=== PATIENT | male | born 1965 | race Caucasian/White ===

== ENCOUNTER → 2019-12-03 10:38 | Outpatient (CLI) | payer BC, SELFPAY ==
[2019-12-04 18:48] LABS: Alanine Aminotransferase 46 U/L (12-78); Albumin Level 3.8 gm/dL (3.4-5.0); Albumin/Globulin Ratio 1.2 (1.1-1.8); Alkaline Phosphatase 66 U/L (46-116); Anion Gap 13.6 mEq/L (5-15); Aspartate Amino Transferase 25 U/L (15-37); Bilirubin,Total 0.3 mg/dL (0.2-1.0); Blood Urea Nitrogen 16 mg/dL (7-18); Calcium 9.3 mg/dL (8.5-10.1); Carbon Dioxide 31 mmol/L (21.0-32.0); Chloride 101 mmol/L (98-107); Chol/HDL Ratio 6.3 (1-3.5); Cholesterol 253 mg/dL (140-200); Creatinine,Serum 0.97 mg/dL (0.70-1.30); Estimated Glomerular Filt Rate 81 ml/min (>60); GFR (African American) 98 ML/MIN (>60); Globulin 3.2 gm/dl (1.3-3.2); Glucose 152 mg/dL (74-106); HDL Cholesterol 40 mg/dL (27-67); LDL Cholesterol 171 mg/dL (0-130); Potassium 4.6 mmoL/L (3.5-5.1); Sodium 141 mmol/L (136-145); T4 (Thyroxine) 10.1 ug/dl (4.7-13.3); Thyroid Stimulating Hormone 1.88 uIU/ml (0.358-3.740); Triglycerides 212 mg/dL (30-200); VLDL Cholesterol 42 mg/dL (0-40)
[2019-12-05 15:10] LABS: Hemoglobin A1C 7.3 % (0.0-7.0)
[2019-12-06 11:27] LABS: Vitamin D 25 Hydroxy 12.5 ng/mL (30.0-100.0)
== END ==
LOC: LAB 12-04 17:31 → LAB.DROPOF 12-04 17:35
PROVIDERS: Visit Provider Physician Assistant
DX: I10 Essential (primary) hypertension (principal); R73.9 Hyperglycemia, unspecified; E55.9 Vitamin D deficiency, unspecified
CPT/HCPCS: 80053; 80061; 82652; 83036; 84436; 84443

== ENCOUNTER → 2019-12-18 14:42 | Outpatient (CLI) | payer BC, SELFPAY ==
[2019-12-18 16:09] VITALS: BMI 44.5
== END ==
PROVIDERS: PCP Physician Assistant; Visit Provider Physician Assistant
DX: Z71.3 Dietary counseling and surveillance (principal); E11.9 Type 2 diabetes mellitus without complications
CPT/HCPCS: 97802

== ENCOUNTER → 2020-06-03 13:33 | Outpatient (CLI) | payer BC, SELFPAY ==
[2020-06-03 14:02] LABS: Alanine Aminotransferase 24 U/L (12-78); Albumin Level 4.5 g/dl (3.5-5.0); Albumin/Globulin Ratio 1.6 (1.1-1.8); Alkaline Phosphatase 73 U/L (38-126); Anion Gap 15.7 mEq/L (5-15); Aspartate Amino Transferase 31 U/L (17-59); Bilirubin,Total 0.6 mg/dl (0.2-1.3); Blood Urea Nitrogen 15 mg/dl (9-20); Calcium 10.2 mg/dl (8.4-10.2); Carbon Dioxide 28 mmol/L (22.0-30.0); Chloride 100 mmol/L (98-107); Chol/HDL Ratio 3.3 (1-3.5); Cholesterol 190 mg/dl (140-200); Estimated Glomerular Filt Rate 118 ml/min (>60); GFR (African American) 143 ML/MIN (>60); Globulin 2.9 g/dL (1.3-3.2); Glucose 114 mg/dl (74-100); HDL Cholesterol 58 mg/dl (40-60); Potassium 4.7 mmoL/L (3.5-5.1); Sodium 139 mmol/L (136-145); Total Protein,Serum 7.4 g/dl (6.3-8.2); Triglycerides 119 mg/dl (30-150); VLDL Cholesterol 24 mg/dL (0-40)
[2020-06-03 14:13] LABS: Creatinine,Urine Random 29 mg/dL (Not Estab.); Direct LDL Cholesterol 113.75 mg/dL (100-129)
[2020-06-03 14:19] LABS: T4 (Thyroxine) 10.6 ug/dl (5.53-11.0)
[2020-06-03 14:26] LABS: Basophils # 0.1 K/mm3 (0-0.2); Basophils % 0.8 % (0.1-2.0); Eosinophils # 0.2 K/mm3 (0.0-0.4); Hematocrit 51.6 % (42.0-52.0); Hemoglobin 17.1 g/dL (14.1-18.0); Lymphocytes # 2.2 K/mm3 (0.7-4.5); Lymphocytes % 26.1 % (10-50); Mean Corpuscular HGB Conc 33.2 g/dL (31.8-35.4); Mean Corpuscular Hemoglobin 31.6 pg (27.0-31.2); Mean Corpuscular Volume 95.3 fl (80-94); Monocytes # 0.5 K/mm3 (0.1-1.0); Monocytes % 5.8 % (1.7-9.3); Neutrophils # 5.5 K/mm3 (1.8-7.8); Neutrophils % 65.4 % (37.0-80.0); Platelet Count 172 K/mm3 (142-424); Red Blood Count 5.42 M/mm3 (4.60-6.20); Red Cell Distribution Width 14.1 % (11.5-17.5); White Blood Count 8.4 K/mm3 (4.8-10.8)
[2020-06-03 14:28] LABS: Microalbumin < 6.000 mg/L (0-16.7)
[2020-06-03 14:33] LABS: Prostate Specific Ag Screen 0.8 ng/ml (0.0-4.0); Thyroid Stimulating Hormone 1.43 uIU/mL (0.465-4.68)
[2020-06-03 15:18] LABS: Hemoglobin A1C 6.4 % (4.0-6.0)
[2020-06-05 10:24] LABS: 25-OH Vitamin D, Total 27.1 ng/mL (30-100)
== END ==
PROVIDERS: Visit Provider Physician Assistant
DX: E11.9 Type 2 diabetes mellitus without complications (principal); E55.9 Vitamin D deficiency, unspecified; Z79.84 Long term (current) use of oral hypoglycemic drugs; Z79.899 Other long term (current) drug therapy
CPT/HCPCS: 80053; 80061; 82043; 82306; 82570; 83036; 84436; 84443; 85025; G0103

== ENCOUNTER → 2020-07-23 07:13 | Outpatient (CLI) | payer BC, SELFPAY ==
--- NOTE | 2020-07-23 | CA_ITS ---
APPROVED REPORT Exam: Pharmacologic Technologist: Anuja Welch, Ht: 5 ft 8 in Wt: 265 lbs BSA: 2.30 m2 HR: 75 bpm BP: 121/76 mmHg Rhythm: NSR,RAD,SLOW R WAVE PROGRESSION Medical History Medical History: Diabetic ??? Noninsulin, HTN, Hyperlipidemia Medications: Lisinopril,,,,, Asa,,,,, Metformin,,,,, Trazadone,,,,, Atorvastatin,,,,, MeLOXICAM,,,,, Vit D3,,,,, Vit D2,,,,, Allergies: NKA Cardiac Risk Factors: HTN, Hyperlipidemia, Diabetes (non-insulin), FHX of CAD Stress Test Details Test: LEXISCAN HR Resting HR: 75 bpm Max Heart Rate (APMHR): 168 bpm Max HR Achieved: 114 bpm Target HR (85% APMHR): 142 bpm % of APMHR: 67 Recovery HR: 85 bpm BP Resting BP: 121.0/76.0 mmHg Max BP: 140.0/74.0 mmHg Recovery BP: 133.0/78.0 mmHg ECG Resting ECG: NSR,RAD,SLOW R WAVE PROGRESSION Clinical Exercise duration: 04:01 min Highest Stage Achieved: Stress ECG Conclusion DURING INFUSION OF LEXISCAN PATIENT HAD MALAISE AND MILD SOA. NO CHEST PAIN. NO ARRHYTHMIAS/ECTOPY. NO SIGNIFICANT ST-T CHANGES. UNREMARKABLE LEXISCAN STRESS. MYOVIEW IMAGES REPORTED SEPARATELY. Electronically signed by : Bridger Rae, 07/23/2020 14:07:28
--- NOTE | 2020-07-23 07:14 | NM_ITS ---
APPROVED REPORT Exam: Nuclear Stress Test Indication: short of breath Patient Location: Outpatient Stress Tech: Susan Merlosnkson [place] Tech:ULISES Calzada RT(R)(N) Ht: 5 ft 8 in Wt: 265 lbs HR: 75 bpm BP: 121/76 mmHg BSA: 2.30 m2 BMI: 40.2 History: short of breath Procedure: Patient received a 0.4 mg of intravenous Lexiscan, resting heart rate 75 bpm, resting blood pressure 121/76 mmHg, with Lexiscan maximum heart rate achived was 106 bpm which is Less than 85 % of the maximum predicted heart rate and blood pressure was 136/76 mmHg. With Lexiscan, patient denied any complaint of chest pain. Electrocardiogram Resting electrocardiogram showed sinus rhythm, with Lexiscan there is less than 1.[address] segment depression noted from the baseline EKG. The EKG portion of the Lexiscan is nondiagnostic. Cardiac Stress and Resting SPECT Images: Cardiac Stress and Resting SPECT images were obtained using technetium 99m Myoview 32.6 mCi stress and 10.95 mCi at rest. Gated SPECT for the analysis of segmental wall motion and calculation of the ejection fraction also done. Cardiac stress and resting SPECT images show uniform myocardial activity without segmental perfusion abnormality, computer derived ejection fraction is 50% with no regional wall motion abnormality, right ventricle is normal size and contractility. However there appears to be transient ischemic dilatation of the left ventricle, raising the concerns for presence of balanced ischemia. Conclusion: 1. The EKG portion of the Lexiscan Myoview is nondiagnostic. 2. No scintigraphic evidence of reversible ischemia seen, computer derived ejection fraction is 50% with no regional wall motion abnormality, right ventricle is normal size and contractility. However there appears to be transient ischemic dilatation of the left ventricle seen raising the concerns for presence of balanced ischemia, the other causes for the transient ischemic dilatation is hypertensive heart disease and elevated left ventricular end-diastolic pressure. 3. Abnormal Lexiscan Myoview study. Electronically signed by : Bridger Rae, 07/23/2020 14:11:03
--- NOTE | 2020-07-23 07:21 | CA_ITS ---
APPROVED REPORT EXAM: Comprehensive 2D, Doppler, and color-flow Echocardiogram Burr Sander: Myra Miles CRT Ht: 5 ft 8 in Wt: 265lbs BSA: 2.30 BP: 112/67 mmHg Indications: CP,SMOKER,OBESITY,COON,HTN,HLP 2D Dimensions LVOT 2.00 cm (M/F) 1.5-2.5 M-Mode Dimensions RVDd 3.50 cm (0.9-2.6) LVDd 5.15 cm (3.5-5.7) LVDs 3.46 cm (3.5-5.7) IVSd 0.89 cm (0.6-1.1) PWd 0.80 cm (0.6-1.1) EF (Teich) 60.90% FS 32.80% EDV (Teich) 126.60 mL ESV (Teich) 49.50 mL LV Diastology E/A Ratio 1.05 Aortic Valve LVOT Max 125.00 (70-110 cm/s) LVOT VTI 23.31 cm Mitral Valve MV A Velocity 75.00 (40-130 cm/s) Left Ventricle Left atrium is mildly enlarged, left ventricle is normal size, there is no concentric left ventricular hypertrophy, visually estimated ejection fraction 55% with no regional wall motion abnormality. Diastolic parameters are within normal range. Right Ventricle Right atrium and right ventricle are mildly enlarged with normal contractility. Aortic Valve Aortic valve is minimally thickened and fibrosed, there is no aortic stenosis or aortic insufficiency. Mitral Valve Mitral valve is grossly normal, there is mild mitral regurgitation. Tricuspid Valve Tricuspid valve is grossly normal, there is mild tricuspid regurgitation, tricuspid regurgitation jet velocity is inadequate for calculation of the right ventricular systolic pressure. Pulmonic Valve Pulmonic valve is poorly visualized. Great Vessels Aortic root is normal size. Pericardium No significant pericardial effusion noted. Conclusion 1. Mild biatrial alignment, normal left ventricular size, visually estimated ejection fraction 55% with no regional wall motion abnormality, diastolic parameters are within normal range. 2. Mildly enlarged right ventricle with normal contractility. 3. Mild mitral and tricuspid regurgitation. 4. No significant pericardial effusion noted. Electronically signed by : Bridger Rae, 07/24/2020 13:17:08
--- NOTE | 2020-07-23 09:50 | HMH.ITSHM ---
Current Home Medications as stated by this patient Francisca Jenkins or patient intake representative. [] asa atorvastain lisinopril meloxicam metformin trazodone
== END ==
PROVIDERS: PCP Physician Assistant; Visit Provider Urology
DX: R07.9 Chest pain, unspecified (principal); R06.00 Dyspnea, unspecified; R94.31 Abnormal electrocardiogram [ECG] [EKG]; E78.5 Hyperlipidemia, unspecified; I10 Essential (primary) hypertension; Z72.0 Tobacco use
CPT/HCPCS: 78452; 93017; 93306; A9502; J2785

== ENCOUNTER → 2020-08-11 10:57 | Outpatient (CLI) | payer BC, SELFPAY ==
[2020-08-11 13:27] LABS: Coronavirus 19 IgG Antibody Negative (Negative); Coronavirus 19 IgM Antibody Negative (Negative)
[2020-08-11 16:45] LABS: Chloride 99 mmol/L (98-107); Potassium 4.8 mmoL/L (3.5-5.1); Sodium 139 mmol/L (136-145)
[2020-08-11 16:48] LABS: Anion Gap 9.8 mEq/L (5-15); Blood Urea Nitrogen 16 mg/dl (9-20); Carbon Dioxide 35 mmol/L (22.0-30.0); Estimated Glomerular Filt Rate 89 ml/min (>60); GFR (African American) 107 ML/MIN (>60)
[2020-08-11 16:49] LABS: Calcium 9.5 mg/dl (8.4-10.2); Glucose 99 mg/dl (74-100)
[2020-08-11 16:50] LABS: Basophils # 0.1 K/mm3 (0-0.2); Basophils % 1.1 % (0.1-2.0); Eosinophils # 0.2 K/mm3 (0.0-0.4); Eosinophils % 1.9 % (0.1-12.0); Hematocrit 53.2 % (42.0-52.0); Hemoglobin 16.9 g/dL (14.1-18.0); Lymphocytes # 2.8 K/mm3 (0.7-4.5); Lymphocytes % 30.3 % (10-50); Mean Corpuscular HGB Conc 31.8 g/dL (31.8-35.4); Mean Corpuscular Hemoglobin 32.1 pg (27.0-31.2); Mean Corpuscular Volume 100.9 fl (80-94); Mean Platelet Volume 8.9 fl (7.4-10.4); Monocytes # 0.5 K/mm3 (0.1-1.0); Monocytes % 5.3 % (1.7-9.3); Neutrophils # 5.7 K/mm3 (1.8-7.8); Neutrophils % 61.4 % (37.0-80.0); Platelet Count 181 K/mm3 (142-424); Red Blood Count 5.27 M/mm3 (4.60-6.20); Red Cell Distribution Width 13.9 % (11.5-17.5); White Blood Count 9.3 K/mm3 (4.8-10.8)
== END ==
PROVIDERS: Visit Provider Internal Medicine
DX: Z01.89 Encounter for other specified special examinations (principal); I20.9 Angina pectoris, unspecified; R94.30 Abnormal result of cardiovascular function study, unspecified; R94.31 Abnormal electrocardiogram [ECG] [EKG]
CPT/HCPCS: 36415; 80048; 85025; 86328

== ENCOUNTER 2020-08-12 08:50 | Day surgery (SDC) | payer BC, SELFPAY ==
[2020-08-12] VITALS (11 sets, daily range): BP systolic 91–157; BP diastolic 55–76; PULSE 60–88; RESP 16; TEMP 36.6; O2SAT 92–100; BMI 41.0
--- NOTE | 2020-08-12 | IR_ITS ---
APPROVED REPORT Patient Location: Outpatient PROCEDURES Left heart catheterization Left ventriculogram Selective coronary angiogram INDICATION Abnormal Myoview Informed consent was obtained prior to the procedure. COMPLICATIONS none Estimated Blood Loss: less than 10 mls TECHNIQUE One percent lidocaine used to anesthetize the right anterior aspect of the wrist. The right radial artery was accessed via the Seldinger technique. A 6 Latvian sheath was placed in the right radial artery. 2.5 mg of verapamil, 800 mcg of nitroglycerin, 1mg Lidocaine and 5000 U Heparin were given through the arterial sheath. The alpha catheter was also used to perform left heart catheterization, left ventriculogram and selective coronary angiogram. At the end of the procedure the sheath was removed good hemostasis was achieved using Traclet band, patient was transferred to the postop holding area in stable condition. ANGIOGRAPHIC RESULTS The left main artery Normal The left anterior descending artery Has mild proximal 10 to 20% stenoses with mid vessel 10 to 20% luminal irregularities The circumflex artery Is nondominant with mild 10 to 20% luminal irregularities The right coronary artery Is a large dominant vessel with mild 10% luminal irregularities The RIVERA ventriculogram reveals Normal 65% The left ventricular end-diastolic pressure 10 mmHg IMPRESSION Mild [id number] coronary artery disease Normal ejection fraction Mildly elevated LVEDP PLAN 1. Medical management 2. Evaluation of noncardiac chest pain Electronically signed by : Jose Galan, 08/12/2020 10:49:45
== END 2020-08-12 13:38 | disposition home or self-care (01) ==
LOC: CATHLAB 08:50
PROVIDERS: PCP Physician Assistant; Visit Provider Internal Medicine
DX: I25.118 Atherosclerotic heart disease of native coronary artery with other forms of angina pectoris (principal); I10 Essential (primary) hypertension; E78.2 Mixed hyperlipidemia; E11.9 Type 2 diabetes mellitus without complications; Z72.0 Tobacco use; Z79.84 Long term (current) use of oral hypoglycemic drugs; Z79.899 Other long term (current) drug therapy
CPT/HCPCS: 93458; 99152; C1725; C1760; C1769; J1644; Q9967

== ENCOUNTER → 2020-08-24 11:56 | Outpatient (CLI) | payer BC, SELFPAY | PROVIDERS: PCP Physician Assistant; Visit Provider Urology | DX: G47.30 Sleep apnea, unspecified (principal); R06.83 Snoring; R40.0 Somnolence; R53.83 Other fatigue; E66.9 Obesity, unspecified | CPT/HCPCS: G0399 ==

== ENCOUNTER → 2020-09-03 15:11 | Outpatient (CLI) | payer BC, SELFPAY ==
--- NOTE | 2020-09-03 15:15 | XR_ITS ---
PROCEDURE: XR CHEST 2V CLINICAL HISTORY: cough, copd COMPARISON: CR CXR-PICC CHEST PORTABLE-PICC PLACEMENT from 08/17/2017 FINDINGS: The cardiomediastinal silhouette and pulmonary vascularity are within normal limits. Changes of COPD. There are surgical clips overlying the left upper chest. There is fusion of the posterior aspect of the left 5th and 6th ribs. Parenchymal opacity noted in the anterior clear space on the lateral view. This is nonspecific and could be related to an area of scarring atelectasis or developing nodule. Follow-up suggested to confirm stability in this patient with smoking history. No acute bony abnormalities. IMPRESSION: COPD with nonspecific parenchymal opacity in the anterior clear space for which follow-up is recommended. No acute finding. Dictated by: Tu Camacho MD 09/03/2020 15:35 Tu Camacho MD in [place] 09/03/2020 15:35
== END ==
PROVIDERS: PCP Physician Assistant; Visit Provider Specialist
DX: R05 Cough (principal)
CPT/HCPCS: 71046

== ENCOUNTER → 2020-10-08 15:26 | Outpatient (CLI) | payer BC, SELFPAY ==
[2020-10-08 16:22] LABS: Basophils # 0.1 K/mm3 (0-0.2); Eosinophils # 0.2 K/mm3 (0.0-0.4); Eosinophils % 2.5 % (0.1-12.0); Hemoglobin 17.9 g/dL (14.1-18.0); Lymphocytes # 2.2 K/mm3 (0.7-4.5); Lymphocytes % 27.5 % (10-50); Mean Corpuscular HGB Conc 32.6 g/dL (31.8-35.4); Mean Corpuscular Hemoglobin 32.5 pg (27.0-31.2); Mean Corpuscular Volume 99.7 fl (80-94); Mean Platelet Volume 9.7 fl (7.4-10.4); Monocytes # 0.5 K/mm3 (0.1-1.0); Monocytes % 5.9 % (1.7-9.3); Platelet Count 186 K/mm3 (142-424); Red Blood Count 5.51 M/mm3 (4.60-6.20); Red Cell Distribution Width 13.8 % (11.5-17.5)
[2020-10-08 16:31] LABS: Alanine Aminotransferase 23 U/L (12-78); Albumin Level 4.5 g/dl (3.5-5.0); Albumin/Globulin Ratio 1.6 (1.1-1.8); Alkaline Phosphatase 68 U/L (38-126); Anion Gap 10.7 mEq/L (5-15); Aspartate Amino Transferase 29 U/L (17-59); Bilirubin,Total 0.5 mg/dl (0.2-1.3); Blood Urea Nitrogen 15 mg/dl (9-20); Calcium 9.5 mg/dl (8.4-10.2); Carbon Dioxide 32 mmol/L (22.0-30.0); Chloride 99 mmol/L (98-107); Chol/HDL Ratio 3.6 (1-3.5); Cholesterol 203 mg/dl (140-200); Estimated Glomerular Filt Rate 89 ml/min (>60); GFR (African American) 107 ML/MIN (>60); Globulin 2.9 g/dL (1.3-3.2); Glucose 153 mg/dl (74-100); HDL Cholesterol 57 mg/dl (40-60); Potassium 4.7 mmoL/L (3.5-5.1); Sodium 137 mmol/L (136-145); Total Protein,Serum 7.4 g/dl (6.3-8.2); Triglycerides 150 mg/dl (30-150); VLDL Cholesterol 30 mg/dL (0-40)
[2020-10-08 16:42] LABS: Direct LDL Cholesterol 117.55 mg/dL (100-129)
[2020-10-08 16:47] LABS: Free T4 (Free Thyroxine) 1.26 ng/dl (0.78-2.19)
[2020-10-08 16:48] LABS: 25-OH Vitamin D, Total 31.1 ng/mL (30-100)
[2020-10-08 17:00] LABS: Thyroid Stimulating Hormone 1.43 uIU/mL (0.465-4.68)
[2020-10-08 17:15] LABS: Coronavirus 19 IgG Antibody Negative (Negative); Coronavirus 19 IgM Antibody Negative (Negative)
[2020-10-08 17:26] LABS: Hemoglobin A1C 6.4 % (4.0-6.0)
== END ==
PROVIDERS: Visit Provider Physician Assistant
DX: E11.9 Type 2 diabetes mellitus without complications (principal); E55.9 Vitamin D deficiency, unspecified; E78.5 Hyperlipidemia, unspecified; R53.83 Other fatigue; Z79.84 Long term (current) use of oral hypoglycemic drugs; Z79.899 Other long term (current) drug therapy
CPT/HCPCS: 80053; 80061; 82306; 83036; 84439; 84443; 85025; 86328

== ENCOUNTER → 2020-10-20 10:46 | Outpatient (CLI) | payer BC, SELFPAY ==
--- NOTE | 2020-10-20 10:47 | US_ITS ---
APPROVED REPORT Exam Type: Lower Extremity Segmental Pressures Ice Cream Van Vendor: Myra Miles CRT Risk Factors Hypertension Hyperlipidemia Obesity Diabetes Current Smoker Pressures/Indices Right Indices Left Indices Brachial 127.00 mmHg Brachial 128.00 mmHg Low Thigh 142.00 mmHg 1.11 Low Thigh 133.00 mmHg 1.04 Calf 150.00 mmHg 1.17 Calf 141.00 mmHg 1.10 Ankle(PT) 134.00 mmHg 1.05 Ankle(PT) 134.00 mmHg 1.05 Ankle(DP) 138.00 mmHg 1.08 Ankle(DP) 116.00 mmHg 0.91 Digit 107.00 mmHg 0.84 Digit 105.00 mmHg 0.82 Findings R KYLER 1.0 L KYLER 1.1 R TBI 0.8 L TBI 0.8 NORMAL PULSES NORMAL WAVEFORMS Conclusion R KYLER 1.0 L KYLER 1.1 R TBI 0.8 L TBI 0.8 NORMAL PULSES NORMAL WAVEFORMS Normal appearing resting noninvasive lower extremity arterial study. Electronically signed by : Tu Camacho MD 10/20/2020 16:07:25
== END ==
PROVIDERS: PCP Physician Assistant; Visit Provider Physician Assistant
DX: I73.9 Peripheral vascular disease, unspecified (principal)
CPT/HCPCS: 93923

== ENCOUNTER → 2020-11-13 12:19 | Outpatient (CLI) | payer BC, SELFPAY ==
--- NOTE | 2020-11-14 09:59 | PC.NURSE ---
Pt informed of positive covid 19 results .
== END ==
PROVIDERS: PCP Physician Assistant; Visit Provider Emergency Medicine
DX: U07.1 COVID-19; Z20.822 Contact with and (suspected) exposure to COVID-19
CPT/HCPCS: U0003

== ENCOUNTER → 2020-11-24 07:36 | Outpatient (CLI) | payer BC, SELFPAY ==
--- NOTE | 2020-11-24 07:58 | CT_ITS ---
PROCEDURE: CT PELVIS W CON CLINICAL INDICATION: abcess medial left thigh area COMPARISON: No exams were available for comparison TECHNIQUE: Axial images obtained with sagittal and coronal reformats. All CT scans at the facility use one or more dose reduction, viz: automated exposure control, ma/kV adjustment per patient size (including targeted exams where dose is matched to indication, i.e. head), or iterative reconstruction technique. FINDINGS: Along the medial aspect of the left thigh there is stranding of the subcutaneous soft tissues and skin thickening. There are 2 fluid collections along the medial aspect of the thigh a 1 in the immediate subcutaneous tissues at 1.8 cm and 1 slightly deeper but still superficial to the sartorius muscle measuring 3 x 2.4 cm. The 2 collections do not appear to communicate with 1 another. There appears to be a small defect within the skin along the medial aspect of the thigh with a small amount of gas. The larger of the 2 fluid collections is just slightly deep and cephalad to this skin defect. The smaller of the 2 collections is posterior to the skin defect by approximately 2.8 cm. Subcutaneous edema with a small amount of non loculated fluid is noted in the medial thighs well. Scattered small nodes are present in the inguinal region on both sides. No acute bony findings. IMPRESSION: Cellulitis involves the medial and proximal aspect of the left thigh with at least 2 small abscesses and phlegmonous changes as described above. Dictated by: Tu Camacho MD 11/24/2020 15:08 Tu Camacho MD in [place] 11/24/2020 15:08
[2020-11-24 08:10] LABS: Blood Urea Nitrogen 15 mg/dl (9-20); Estimated Glomerular Filt Rate 101 ml/min (>60); GFR (African American) 122 ML/MIN (>60)
== END ==
PROVIDERS: PCP Physician Assistant; Visit Provider Family Medicine
DX: L02.91 Cutaneous abscess, unspecified (principal); L02.92 Furuncle, unspecified
CPT/HCPCS: 36415; 72193; 82565; 84520; Q9967

== ENCOUNTER → 2020-11-25 10:50 | Outpatient (CLI) | payer BC, SELFPAY ==
[2020-11-25 11:33] LABS: Basophils # 0.1 K/mm3 (0-0.2); Basophils % 0.6 % (0.1-2.0); Eosinophils # 0.3 K/mm3 (0.0-0.4); Hematocrit 47.3 % (42.0-52.0); Hemoglobin 15.9 g/dL (14.1-18.0); Lymphocytes # 1.8 K/mm3 (0.7-4.5); Lymphocytes % 14.6 % (10-50); Mean Corpuscular HGB Conc 33.6 g/dL (31.8-35.4); Mean Corpuscular Hemoglobin 31.9 pg (27.0-31.2); Mean Platelet Volume 7.9 fl (7.4-10.4); Monocytes # 0.8 K/mm3 (0.1-1.0); Monocytes % 6.3 % (1.7-9.3); Neutrophils # 9.4 K/mm3 (1.8-7.8); Neutrophils % 76.4 % (37.0-80.0); Platelet Count 228 K/mm3 (142-424); Red Blood Count 4.97 M/mm3 (4.60-6.20); Red Cell Distribution Width 14.1 % (11.5-17.5); White Blood Count 12.3 K/mm3 (4.8-10.8)
[2020-11-25 11:51] LABS: Chloride 95 mmol/L (98-107); Potassium 4.8 mmoL/L (3.5-5.1); Sodium 132 mmol/L (136-145)
[2020-11-25 11:54] LABS: Anion Gap 9.8 mEq/L (5-15); Blood Urea Nitrogen 17 mg/dl (9-20); Calcium 9.8 mg/dl (8.4-10.2); Carbon Dioxide 32 mmol/L (22.0-30.0); Estimated Glomerular Filt Rate 118 ml/min (>60); GFR (African American) 143 ML/MIN (>60); Glucose 237 mg/dl (74-100)
== END ==
PROVIDERS: PCP Physician Assistant; Visit Provider Surgery
DX: Z51.89 Encounter for other specified aftercare (principal); Z11.52 Encounter for screening for COVID-19; L02.92 Furuncle, unspecified
CPT/HCPCS: 36415; 80048; 85025; U0003

== ENCOUNTER 2020-11-26 09:49 | Day surgery (SDC) | payer BC, SELFPAY ==
[2020-11-25 14:19] VITALS: BMI 44.6
[2020-11-26] VITALS (10 sets, daily range): BP systolic 103–128; BP diastolic 52–78; PULSE 100–110; RESP 16–20; TEMP 36.2–36.8; O2SAT 93–97
[2020-11-26 10:21] LABS: POC Glucose,Bedside 164 (70-110)
--- NOTE | 2020-11-26 10:27 | P.PN_ITS ---
[facility] Anesthesia Checklist - Patient Identification Patient Identification: Arm Band, Verbal (Name & ) - Structural Data Admitted From: Home Planned Operative Procedure/s: none Consent for Planned Operative Procedure(s) Verified: Yes Verified Documents: History and Physical - NPO Status Verified Time NPO: 00:00 - Chart Verification Results Verified: CBC, BMP - Additional verifications Patient : No Anesthesia Reactions: No Hx Blood Transfusions: No Blood Transfusion Reaction: No Cephalosporin Allergy: No Previous Colonoscopy: No - Cardiovascular Assessment Heart Sounds: S1 & S2 Pulse Strength: Baseline Pulse Rhythm: Regular Peripheral Edema: No - Airway Assessment C-Spine Mobility Assessed: Yes TMJ Mobility Assessed: Yes Dentition: Good Dentition - Neurological Assessment Level of Consciousness: Awake, Alert, Appropriate Hx Seizures: No Numbness or tingling in extremities: No - Anesthesia Plan Anesthesia Risk discussed: Yes Anesthesia Plan: Verified ASA Class: III Anesthesia Type: General [facility] History I have reviewed the patient's past medical history: Yes Medical History: Reports:: Diabetes Mellitus Type 2, Hyperlipidemia, Hypertension, MRSA Denies:: Cancer, Diabetes Mellitus Type 1, Gastrointestinal Bleed, Internal Pacemaker, Renal Disease, Seizures, Ulcer *Have you ever received a pneumonia vaccine?: No *Have you received a flu vaccine this season?: No Other Medical History: Reports: Arthritis. Denies: Blood Transfusion Reaction Anesthesia experience/problems:: none Other Surgeries: Yes: No Previous Surgery, Cardiac Catheterization, Cardiac Surgery, Colonoscopy. No: Pacemaker Amputation: No Fractures: No - *Social History Last grade of school completed: High school graduate Smoking Status: Current every day smoker Tobacco Type: cigarettes # Packs/Day (cigarettes): 1 Alcohol Intake: current Alcohol Intake Frequency:: a few times a month Substance Use Type: denies use *Occupational Status:: employed Housing: house Household Members: none *Travel in the last 8 weeks: None Family Hx:: Diabetes, Heart Attack, Cancer
--- NOTE | 2020-11-26 11:03 | HMH.OPNOTE ---
Date of procedure: 11/26/20 Pre-op Diagnosis:: Left medial thigh abscess Post-op Diagnosis:: Same Procedure performed:: Incision and drainage of left medial thigh abscess Surgeon:: Armando Cote MD Anesthesia: GETA Estimated blood loss (mL): 10 Operative findings:: Significant induration Microabscesses encountered No large remaining pockets of purulence Operative note:: After informed consent was obtained the patient was taken to the operating room and maintained in the supine position. General anesthesia was induced and his left medial thigh was prepped and draped in a sterile fashion. 2 prior superficial incision and drainage sites were noted. Each of these sites was expanded utilizing electrocautery. The deep subcutaneous tissue was bluntly dissected to create a common cavity for both incision sites. No large pocket of purulence was encountered. Microabscesses noted. The entire cavity was thoroughly evacuated/irrigated. Each opening was then separately packed with moistened Kerlix. The Curlex was then infiltrated with 1% lidocaine. Dressings were applied and the patient was transferred to recovery after extubation. Condition: stable Disposition: PACU Specimens:: None Complications:: No immediate
== END 2020-11-26 12:04 | disposition home or self-care (01) ==
LOC: OR 09:50
PROVIDERS: PCP Physician Assistant; Visit Provider Surgery
PROC: (CPT 10061; principal; 2020-11-26 11:30)
DX: L02.416 Cutaneous abscess of left lower limb (principal); E11.9 Type 2 diabetes mellitus without complications; E78.5 Hyperlipidemia, unspecified; I10 Essential (primary) hypertension; Z86.14 Personal history of Methicillin resistant Staphylococcus aureus infection; M19.90 Unspecified osteoarthritis, unspecified site; Z72.0 Tobacco use; Z83.3 Family history of diabetes mellitus; Z82.3 Family history of stroke; Z80.9 Family history of malignant neoplasm, unspecified
CPT/HCPCS: 10061; 82962; 96374; J0330

== ENCOUNTER 2020-11-27 13:00 | Outpatient (CLI) | payer BC, SELFPAY | END 2020-11-27 13:20 | disposition home or self-care (01) | LOC: INF 13:00 | PROVIDERS: Visit Provider Surgery | DX: L02.416 Cutaneous abscess of left lower limb (principal); Z48.01 Encounter for change or removal of surgical wound dressing | CPT/HCPCS: G0463 ==

== ENCOUNTER → 2020-11-28 09:02 | Outpatient (CLI) | payer BC, SELFPAY ==
[2020-11-28 09:20] VITALS: BP 141/83; PULSE 81; RESP 18; TEMP 36.7; O2SAT 96
[2020-11-28 09:40] VITALS: BP 148/83; PULSE 86; RESP 20; O2SAT 95
== END ==
PROVIDERS: PCP Physician Assistant; Visit Provider Surgery
DX: L02.416 Cutaneous abscess of left lower limb (principal); Z48.01 Encounter for change or removal of surgical wound dressing
CPT/HCPCS: G0463

== ENCOUNTER 2020-11-29 11:45 | Outpatient (CLI) | payer BC, SELFPAY ==
[2020-11-29 11:45] VITALS: BP 137/84; PULSE 88; RESP 18; TEMP 36.6; O2SAT 97
[2020-11-29 12:15] VITALS: BP 146/83; PULSE 88; RESP 18
== END 2020-11-29 12:20 | disposition home or self-care (01) ==
PROVIDERS: PCP Physician Assistant; Visit Provider Surgery
DX: L02.416 Cutaneous abscess of left lower limb (principal); Z48.01 Encounter for change or removal of surgical wound dressing
CPT/HCPCS: G0463

== ENCOUNTER 2020-11-30 10:48 | Outpatient (CLI) | payer BC, SELFPAY ==
[2020-11-30 21:42] VITALS: BP 145/83; PULSE 81; RESP 16; TEMP 36.8; O2SAT 96
== END 2020-11-30 11:15 | disposition home or self-care (01) ==
LOC: INF 10:48
PROVIDERS: PCP Internal Medicine Adolescent Medicine; Visit Provider Surgery
DX: L02.416 Cutaneous abscess of left lower limb (principal); Z48.01 Encounter for change or removal of surgical wound dressing
CPT/HCPCS: G0463

== ENCOUNTER 2020-12-01 11:28 | Outpatient (CLI) | payer BC, SELFPAY | END 2020-12-01 12:10 | disposition home or self-care (01) | LOC: INF 11:28 | PROVIDERS: Visit Provider Surgery | DX: L02.416 Cutaneous abscess of left lower limb (principal); Z48.01 Encounter for change or removal of surgical wound dressing | CPT/HCPCS: G0463 ==

== ENCOUNTER 2020-12-03 11:25 | Outpatient (CLI) | payer BC, SELFPAY | END 2020-12-03 11:55 | disposition home or self-care (01) | LOC: INF 11:25 | PROVIDERS: Visit Provider Nurse Practitioner | DX: L02.416 Cutaneous abscess of left lower limb (principal); Z48.01 Encounter for change or removal of surgical wound dressing | CPT/HCPCS: G0463 ==

== ENCOUNTER 2020-12-04 12:07 | Outpatient (CLI) | payer BC, SELFPAY | END 2020-12-04 12:25 | disposition home or self-care (01) | LOC: INF 12:07 | PROVIDERS: Visit Provider Surgery | DX: L02.416 Cutaneous abscess of left lower limb (principal); Z48.01 Encounter for change or removal of surgical wound dressing | CPT/HCPCS: G0463 ==

== ENCOUNTER 2020-12-05 13:22 | Outpatient (CLI) | payer BC, SELFPAY ==
[2020-12-05 13:30] VITALS: BP 129/70; PULSE 82; RESP 20; O2SAT 96
[2020-12-05 13:50] VITALS: BP 129/70; PULSE 82; RESP 20; TEMP 36.7; O2SAT 96
--- NOTE | 2020-12-05 13:55 | PC.NURSE ---
patient arrived at 1330. vitals obtained and poc explained. patient recently recovered from covid- is wearing a mask and nurse in ppe. 1340 old dressing removed. yellow drainage noted on packing. wet to dry dressing performed. patient tolerated this well. 1350 patient left unit.
== END 2020-12-05 13:50 | disposition home or self-care (01) ==
LOC: INF 13:23
PROVIDERS: PCP Physician Assistant; Visit Provider Surgery
DX: L02.416 Cutaneous abscess of left lower limb (principal); Z48.01 Encounter for change or removal of surgical wound dressing
CPT/HCPCS: G0463

== ENCOUNTER → 2020-12-06 13:54 | Outpatient (CLI) | payer BC, SELFPAY ==
[2020-12-06 14:10] VITALS: BP 155/80; PULSE 87; RESP 20; TEMP 36.5; O2SAT 95
--- NOTE | 2020-12-06 14:21 | PC.NURSE ---
Addendum entered by Chelly Castillo RN 12/06/20 14:28: wound is on patients inner left groin. Original Note: 1410patient arrived to unit. Poc explained and patient agreeable. mask in place- patient recently recovered from covid-19. nurse in appropriate ppe. 1415 wet to dry dressing performed. old 4x4 and packing removed. yellow drainage noted on packing and 4x4. small amount of dark blood noted in wound. cleansed with normal saline. repacked wound with gauze soaked in normal saline. patient tolerated this very well. redressed with 4x4 and tape. pt to return tomorrow. 1420 patient off unit- no distress.
== END ==
PROVIDERS: PCP Physician Assistant; Visit Provider Surgery
DX: L02.416 Cutaneous abscess of left lower limb (principal); Z48.01 Encounter for change or removal of surgical wound dressing
CPT/HCPCS: G0463

== ENCOUNTER 2020-12-07 13:43 | Outpatient (CLI) | payer BC, SELFPAY | END 2020-12-07 13:55 | disposition home or self-care (01) | LOC: INF 13:43 | PROVIDERS: Visit Provider Surgery | DX: L02.416 Cutaneous abscess of left lower limb (principal); Z48.01 Encounter for change or removal of surgical wound dressing | CPT/HCPCS: G0463 ==

== ENCOUNTER 2020-12-08 13:26 | Outpatient (CLI) | payer BC, SELFPAY | END 2020-12-08 13:45 | disposition home or self-care (01) | LOC: INF 13:26 | PROVIDERS: Visit Provider Surgery | DX: L02.416 Cutaneous abscess of left lower limb (principal); Z48.01 Encounter for change or removal of surgical wound dressing | CPT/HCPCS: G0463 ==

== ENCOUNTER 2020-12-09 08:27 | Outpatient (CLI) | payer BC, SELFPAY ==
[2020-12-09 09:51] LABS: Coronavirus 19 IgG Antibody Negative (Negative); Coronavirus 19 IgM Antibody Negative (Negative)
== END 2020-12-09 14:00 | disposition home or self-care (01) ==
LOC: INF 08:27
PROVIDERS: Visit Provider Surgery
DX: Z20.822 Contact with and (suspected) exposure to COVID-19 (principal); L02.416 Cutaneous abscess of left lower limb; Z48.01 Encounter for change or removal of surgical wound dressing
CPT/HCPCS: 36415; 86328; G0463

== ENCOUNTER 2020-12-10 13:57 | Outpatient (CLI) | payer BC, SELFPAY | END 2020-12-10 14:00 | disposition home or self-care (01) | LOC: INF 13:57 | PROVIDERS: Visit Provider Nurse Practitioner | DX: L02.416 Cutaneous abscess of left lower limb (principal); Z48.01 Encounter for change or removal of surgical wound dressing | CPT/HCPCS: G0463 ==

== ENCOUNTER 2020-12-11 14:00 | Outpatient (CLI) | payer BC, SELFPAY | END 2020-12-11 14:20 | disposition home or self-care (01) | LOC: INF 14:02 | PROVIDERS: Visit Provider Surgery | DX: L02.416 Cutaneous abscess of left lower limb (principal); Z48.01 Encounter for change or removal of surgical wound dressing | CPT/HCPCS: G0463 ==

== ENCOUNTER → 2020-12-12 14:02 | Outpatient (CLI) | payer BC, SELFPAY ==
[2020-12-12 14:02] VITALS: BP 143/71; PULSE 73; RESP 18; TEMP 36.6; O2SAT 97
== END ==
PROVIDERS: PCP Physician Assistant; Visit Provider Physician Assistant
DX: L02.416 Cutaneous abscess of left lower limb (principal); Z48.01 Encounter for change or removal of surgical wound dressing
CPT/HCPCS: G0463

== ENCOUNTER → 2020-12-13 13:40 | Outpatient (CLI) | payer BC, SELFPAY | PROVIDERS: PCP Physician Assistant; Visit Provider Surgery | DX: L02.416 Cutaneous abscess of left lower limb (principal); Z48.01 Encounter for change or removal of surgical wound dressing | CPT/HCPCS: G0463 ==

== ENCOUNTER 2020-12-14 14:05 | Outpatient (CLI) | payer BC, SELFPAY | END 2020-12-14 14:20 | disposition home or self-care (01) | LOC: INF 14:05 | PROVIDERS: PCP Physician Assistant; Visit Provider Surgery | DX: L02.416 Cutaneous abscess of left lower limb (principal); Z48.01 Encounter for change or removal of surgical wound dressing | CPT/HCPCS: G0463 ==

== ENCOUNTER 2020-12-15 13:55 | Outpatient (CLI) | payer BC, SELFPAY | END 2020-12-15 14:15 | disposition home or self-care (01) | LOC: INF 13:55 | PROVIDERS: Visit Provider Surgery | DX: L02.416 Cutaneous abscess of left lower limb (principal); Z48.01 Encounter for change or removal of surgical wound dressing | CPT/HCPCS: G0463 ==

== ENCOUNTER → 2020-12-16 15:06 | Outpatient (CLI) | payer BC, SELFPAY | PROVIDERS: PCP Physician Assistant; Visit Provider Physician Assistant | DX: L02.416 Cutaneous abscess of left lower limb (principal) ==

== ENCOUNTER 2020-12-17 13:29 | Outpatient (CLI) | payer BC, SELFPAY | END 2020-12-17 13:40 | disposition home or self-care (01) | LOC: INF 13:29 | PROVIDERS: Visit Provider Surgery | DX: L02.416 Cutaneous abscess of left lower limb (principal); Z48.01 Encounter for change or removal of surgical wound dressing | CPT/HCPCS: G0463 ==

== ENCOUNTER 2020-12-18 13:26 | Outpatient (CLI) | payer BC, SELFPAY | END 2020-12-18 13:50 | disposition home or self-care (01) | LOC: INF 13:26 | PROVIDERS: Visit Provider Surgery | DX: L02.416 Cutaneous abscess of left lower limb (principal); Z48.01 Encounter for change or removal of surgical wound dressing | CPT/HCPCS: G0463 ==

== ENCOUNTER → 2020-12-19 14:26 | Outpatient (CLI) | payer BC, SELFPAY ==
[2020-12-19 15:15] VITALS: BP 136/81; PULSE 71; RESP 18; TEMP 36.6; O2SAT 92
== END ==
PROVIDERS: PCP Physician Assistant; Visit Provider Surgery
DX: L02.416 Cutaneous abscess of left lower limb (principal); Z48.01 Encounter for change or removal of surgical wound dressing
CPT/HCPCS: G0463

== ENCOUNTER → 2020-12-20 15:25 | Outpatient (CLI) | payer BC, SELFPAY | PROVIDERS: PCP Physician Assistant; Visit Provider Surgery | DX: L02.416 Cutaneous abscess of left lower limb (principal); Z48.01 Encounter for change or removal of surgical wound dressing | CPT/HCPCS: G0463 ==

== ENCOUNTER 2020-12-21 13:52 | Outpatient (CLI) | payer BC, SELFPAY | END 2020-12-21 14:13 | disposition home or self-care (01) | LOC: INF 13:52 | PROVIDERS: Visit Provider Surgery | DX: L02.416 Cutaneous abscess of left lower limb (principal); Z48.01 Encounter for change or removal of surgical wound dressing | CPT/HCPCS: G0463 ==

== ENCOUNTER 2020-12-22 12:30 | Outpatient (CLI) | payer BC, SELFPAY | END 2020-12-22 12:40 | disposition home or self-care (01) | LOC: INF 12:40 | PROVIDERS: PCP Physician Assistant; Visit Provider Surgery | DX: L02.416 Cutaneous abscess of left lower limb (principal); Z48.01 Encounter for change or removal of surgical wound dressing | CPT/HCPCS: G0463 ==

== ENCOUNTER 2020-12-23 09:55 | Outpatient (CLI) | payer BC, SELFPAY | END 2020-12-23 10:00 | disposition home or self-care (01) | LOC: INF 09:57 | PROVIDERS: Visit Provider Surgery | DX: L02.416 Cutaneous abscess of left lower limb (principal); Z48.01 Encounter for change or removal of surgical wound dressing | CPT/HCPCS: G0463 ==

== ENCOUNTER 2020-12-24 14:23 | Outpatient (CLI) | payer BC, SELFPAY | END 2020-12-24 14:40 | disposition home or self-care (01) | LOC: INF 14:23 | PROVIDERS: Visit Provider Surgery | DX: L02.416 Cutaneous abscess of left lower limb (principal); Z48.01 Encounter for change or removal of surgical wound dressing | CPT/HCPCS: G0463 ==

== ENCOUNTER 2020-12-25 14:40 | Outpatient (CLI) | payer BC, SELFPAY | END 2020-12-25 14:50 | disposition home or self-care (01) | LOC: INF 14:46 | PROVIDERS: Visit Provider Surgery | DX: L02.416 Cutaneous abscess of left lower limb (principal); Z48.01 Encounter for change or removal of surgical wound dressing | CPT/HCPCS: G0463 ==

== ENCOUNTER 2020-12-26 12:29 | Outpatient (CLI) | payer BC, SELFPAY ==
[2020-12-26 12:40] VITALS: RESP 22; O2SAT 96
== END 2020-12-26 12:45 | disposition home or self-care (01) ==
LOC: INF 12:29
PROVIDERS: PCP Physician Assistant; Visit Provider Surgery
DX: L02.416 Cutaneous abscess of left lower limb (principal); Z48.01 Encounter for change or removal of surgical wound dressing
CPT/HCPCS: G0463

== ENCOUNTER 2020-12-27 14:20 | Outpatient (CLI) | payer BC, SELFPAY ==
[2020-12-27 14:30] VITALS: BP 126/81; PULSE 82; RESP 16; TEMP 36.7; O2SAT 93
== END 2020-12-27 14:37 | disposition home or self-care (01) ==
LOC: INF 14:20
PROVIDERS: PCP Physician Assistant; Visit Provider Surgery
DX: L02.416 Cutaneous abscess of left lower limb (principal); Z48.01 Encounter for change or removal of surgical wound dressing
CPT/HCPCS: G0463

== ENCOUNTER 2020-12-28 14:03 | Outpatient (CLI) | payer BC, SELFPAY | END 2020-12-28 14:20 | disposition home or self-care (01) | LOC: INF 14:03 | PROVIDERS: Visit Provider Surgery | DX: L02.416 Cutaneous abscess of left lower limb (principal); Z48.01 Encounter for change or removal of surgical wound dressing | CPT/HCPCS: G0463 ==

== ENCOUNTER 2020-12-29 14:22 | Outpatient (CLI) | payer BC, SELFPAY | END 2020-12-29 14:40 | disposition home or self-care (01) | LOC: INF 14:22 | PROVIDERS: PCP Physician Assistant; Visit Provider Surgery | DX: L02.416 Cutaneous abscess of left lower limb (principal); Z48.01 Encounter for change or removal of surgical wound dressing | CPT/HCPCS: G0463 ==

== ENCOUNTER 2020-12-30 14:35 | Outpatient (CLI) | payer BC, SELFPAY | END 2020-12-30 14:50 | disposition home or self-care (01) | LOC: INF 14:37 | PROVIDERS: Visit Provider Surgery | DX: L02.416 Cutaneous abscess of left lower limb (principal); Z48.00 Encounter for change or removal of nonsurgical wound dressing | CPT/HCPCS: G0463 ==

== ENCOUNTER 2020-12-31 14:07 | Outpatient (CLI) | payer BC, SELFPAY | END 2020-12-31 14:18 | disposition home or self-care (01) | LOC: INF 14:07 | PROVIDERS: Visit Provider Surgery | DX: L02.416 Cutaneous abscess of left lower limb (principal); Z48.01 Encounter for change or removal of surgical wound dressing | CPT/HCPCS: G0463 ==

== ENCOUNTER 2021-01-01 13:15 | Outpatient (CLI) | payer BC, SELFPAY | END 2021-01-01 13:30 | disposition home or self-care (01) | LOC: INF 13:28 | PROVIDERS: Visit Provider Surgery | DX: L02.416 Cutaneous abscess of left lower limb (principal); Z48.01 Encounter for change or removal of surgical wound dressing | CPT/HCPCS: G0463 ==

== ENCOUNTER → 2021-01-02 12:18 | Outpatient (CLI) | payer BC, SELFPAY ==
[2021-01-02 08:15] VITALS: BP 124/70; PULSE 82; RESP 16; TEMP 36.7; O2SAT 98
[2021-01-02 12:59] VITALS: BP 117/68; PULSE 82; RESP 14; TEMP 36.8; O2SAT 97
[2021-01-02 13:16] VITALS: BP 117/69; PULSE 73; RESP 16; TEMP 36.9; O2SAT 99
== END ==
PROVIDERS: PCP Physician Assistant; Visit Provider Surgery
DX: L02.416 Cutaneous abscess of left lower limb (principal); Z48.01 Encounter for change or removal of surgical wound dressing
CPT/HCPCS: 36430; 96365; G0463

== ENCOUNTER → 2021-01-03 16:50 | Outpatient (CLI) | payer BC, SELFPAY | PROVIDERS: PCP Internal Medicine Adolescent Medicine; Visit Provider Surgery | DX: L02.416 Cutaneous abscess of left lower limb (principal); Z48.01 Encounter for change or removal of surgical wound dressing | CPT/HCPCS: G0463 ==

== ENCOUNTER 2021-01-04 14:21 | Outpatient (CLI) | payer BC, SELFPAY ==
--- NOTE | 2021-01-04 14:56 | PC.NURSE ---
1425 wound to L upper medial thigh is completely healed with no drainage or s/s infection/problems noted. Healed wound and surrounding area cleansed with NS/patted dry. Large bandaid dressing applied to area. Pt verbalizes understanding of s/s infection and what to monitor for/report to MD. Patient states Dr. Cote instructed him on last visit that he does not need to follow up with him further once wound healed. Patient instructed to immediately report any problems or concerns to MD/verbalizes understanding.
== END 2021-01-04 14:40 | disposition home or self-care (01) ==
LOC: INF 14:21
PROVIDERS: Visit Provider Surgery
DX: L02.416 Cutaneous abscess of left lower limb (principal); Z48.01 Encounter for change or removal of surgical wound dressing
CPT/HCPCS: G0463

== ENCOUNTER → 2021-06-28 15:35 | Outpatient (CLI) | payer BC, SELFPAY ==
[2021-06-28 15:50] LABS: Basophils # 0.1 K/mm3 (0-0.2); Basophils % 1.1 % (0.1-2.0); Eosinophils # 0.1 K/mm3 (0.0-0.4); Eosinophils % 1.8 % (0.1-12.0); Hematocrit 57.2 % (42.0-52.0); Lymphocytes # 1.4 K/mm3 (0.7-4.5); Lymphocytes % 19.5 % (10-50); Mean Corpuscular HGB Conc 31.4 g/dL (31.8-35.4); Mean Corpuscular Hemoglobin 31.2 pg (27.0-31.2); Mean Corpuscular Volume 99.4 fl (80-94); Mean Platelet Volume 10.1 fl (7.4-10.4); Monocytes # 0.5 K/mm3 (0.1-1.0); Monocytes % 6.8 % (1.7-9.3); Neutrophils # 5.2 K/mm3 (1.8-7.8); Neutrophils % 70.8 % (37.0-80.0); Platelet Count 192 K/mm3 (142-424); Red Blood Count 5.76 M/mm3 (4.60-6.20); Red Cell Distribution Width 14.8 % (11.5-17.5); White Blood Count 7.4 K/mm3 (4.8-10.8)
[2021-06-28 15:53] LABS: Alanine Aminotransferase 23 U/L (12-78); Albumin Level 4.2 g/dl (3.5-5.0); Albumin/Globulin Ratio 1.5 (1.1-1.8); Alkaline Phosphatase 74 U/L (38-126); Anion Gap 14.7 mEq/L (5-15); Aspartate Amino Transferase 25 U/L (17-59); Bilirubin,Total 0.6 mg/dl (0.2-1.3); Blood Urea Nitrogen 12 mg/dl (9-20); Carbon Dioxide 31 mmol/L (22.0-30.0); Chloride 96 mmol/L (98-107); Chol/HDL Ratio 3.4 (1-3.5); Cholesterol 170 mg/dl (140-200); Estimated Glomerular Filt Rate 118 ml/min (>60); GFR (African American) 143 ML/MIN (>60); Globulin 2.8 g/dL (1.3-3.2); Glucose 177 mg/dl (74-100); HDL Cholesterol 50 mg/dl (40-60); Potassium 4.7 mmoL/L (3.5-5.1); Sodium 137 mmol/L (136-145); Triglycerides 123 mg/dl (30-150); VLDL Cholesterol 25 mg/dL (0-40)
[2021-06-28 15:56] LABS: Microalbumin < 6.000 mg/L (0-16.7)
[2021-06-28 16:04] LABS: Direct LDL Cholesterol 97.39 mg/dL (100-129)
[2021-06-28 16:10] LABS: Free T4 (Free Thyroxine) 1.14 ng/dl (0.78-2.19)
[2021-06-28 16:25] LABS: Prostate Specific Ag Screen 0.6 ng/ml (0.0-4.0); Thyroid Stimulating Hormone 1.07 uIU/mL (0.465-4.68)
[2021-06-28 16:38] LABS: Hemoglobin A1C 7.3 % (4.0-6.0)
[2021-06-29 21:07] LABS: Vitamin B12 354 pg/mL (239-931)
== END ==
PROVIDERS: Visit Provider Physician Assistant
DX: E11.9 Type 2 diabetes mellitus without complications (principal); E55.9 Vitamin D deficiency, unspecified; E78.5 Hyperlipidemia, unspecified; R53.83 Other fatigue; E53.9 Vitamin B deficiency, unspecified; Z79.84 Long term (current) use of oral hypoglycemic drugs
CPT/HCPCS: 80053; 80061; 82043; 82306; 82607; 82746; 83036; 84439; 84443; 85025; G0103

== ENCOUNTER → 2022-02-22 08:33 | Outpatient (CLI) | payer BC, SELFPAY ==
--- NOTE | 2022-02-22 08:33 | CA_ITS ---
APPROVED REPORT EXAM: Comprehensive 2D, Doppler, and color-flow Echocardiogram [employer] Observer: BERE Gurrola, RVS Ht: 5 ft 8 in Wt: 291lbs BSA: 2.40 BP: 103/67 mmHg Indications: SOB, Diastolic dysfunction, CAD, Smoker, COPD, Obesity, HTN, HLD, DM, RVH Echo Enhancing Agent Comments: Poor Acoustics with limited windows 2D Dimensions IVSd 1.09 cm LVEF (Visual) 70.90 % PWd 0.98 cm LA Volume 53.80 mL LVDd 4.90 cm LA Volume Index 22.40 mL/m2 (M/F) 16-34 LVDs 2.92 cm Aortic Root 3.42 cm Left Atrium 4.00 cm LVOT 2.05 cm (M/F) 1.5-2.5 M-Mode Dimensions RVDd 3.31 cm (0.9-2.6) LA Diam 3.98 cm (1.9-4.0) LVDd 5.27 cm (3.5-5.7) Ao Diam 3.75 cm (2.0-3.7) LVDs 3.57 cm (3.5-5.7) IVSd 1.15 cm (0.6-1.1) PWd 0.89 cm (0.6-1.1) EF (Teich) 60.10% EPSs 0.43 cm FS 32.30% EDV (Teich) 133.60 mL TAPSE 2.17 (<1.7) ESV (Teich) 53.30 mL LV Diastology E Decel Time 297.00 (160-240 msec) E/A Ratio 0.92 MED E' 9.20 (< 7 cm/sec) MED A' 13.20 cm/s E'/MED E' Ratio 7.64 (>14) LAT E' 13.40 (<10 cm/sec) LAT A' 10.20 cm/s E/LAT E' Ratio 5.25 (>14) Pulm Vein s 56.00 cm/sec Pulm Vein d 26.00 cm/sec Ar-A Duration 110.00 msec Aortic Valve LVOT Max 137.00 (70-110 cm/s) LVOT VTI 21.88 cm AoV Peak Ronald. 172.00 (50-130 cm/s) AO Peak GR. 11.80 mmHg AO Mean GR. 6.20 (<5 mmHg) AO VTI 30.09 (18-25 cm) MELINDA (VTI) 2.40 (2.5-4.5 cm2) Mitral Valve MV A Velocity 76.00 (40-130 cm/s) E/A Ratio 0.92 MV Decel. Time 297.00 (160-240 ms) MV Mean Gr. 1.50 (<2mmHg) Pulmonary Valve PV Peak Velocity 79.00 (50-150 cm/s) Tricuspid Valve TR P. Velocity 189.00 cm/s RAP Estimate 10.00 mmHg RVSP 24.30 mmHg Left Ventricle Technically difficult study because of the patient factors and poor acoustic windows. Left atrium is mildly enlarged, left ventricle is normal size, mild concentric left ventricular hypertrophy, estimated ejection fraction 55% with no regional wall motion abnormality, grade 1 diastolic dysfunction seen without tissue Doppler evidence of raise left atrial pressure. Right Ventricle Right atrium is mildly enlarged, right ventricle is moderately enlarged with normal contractility. Aortic Valve Aortic valve is minimally thickened and fibrosed there is no aortic stenosis or aortic insufficiency. Mitral Valve Mitral valve grossly normal, there is trace mitral regurgitation. Tricuspid Valve Tricuspid valve grossly normal, there is trace tricuspid regurgitation, tricuspid regurgitation jet velocity is inadequate for calculation of the right ventricular systolic pressure. Pulmonic Valve Pulmonic valve is poorly visualized. Great Vessels Aortic root is normal size. Inferior vena cava is poorly visualized. Pericardium No significant pericardial effusion. Conclusion 1. Biatrial enlargement, normal left ventricular size, mild concentric left ventricular hypertrophy, estimated ejection fraction 55% with no regional wall motion abnormality, grade 1 diastolic dysfunction seen without tissue Doppler evidence of raise left atrial pressure. 2. Moderately enlarged right ventricle with normal contractility. 3. Trace mitral and tricuspid regurgitation. 4. No significant pericardial effusion. 5. Inferior vena cava is poorly visualized. Electronically signed by : Bridger Rae MD 02/23/2022 06:04:29
[2022-02-22 09:50] VITALS: PULSE 82; PULSE 84
--- NOTE | 2022-02-22 10:26 | XR_ITS ---
FINAL REPORT CLINICAL HISTORY: dyspnea COMPARISON: 09/03/2020 FINDINGS: Two views of the chest were obtained. The heart size and pulmonary vascularity are within normal limits. The mediastinum is normal. No acute pulmonary abnormality is identified. There is no pneumothorax. The bony thorax is intact. IMPRESSION: No active cardiopulmonary disease. Reviewed, Interpreted and Dictated by Triston Betts III, MD Transcribed by Emmy Garcia Authenticated by Triston Betts III, MD on 02/22/2022 12:36:24 PM [facility]
== END ==
PROVIDERS: PCP Physician Assistant; Visit Provider Internal Medicine
DX: R06.00 Dyspnea, unspecified (principal); I25.10 Atherosclerotic heart disease of native coronary artery without angina pectoris; I51.7 Cardiomegaly; E11.9 Type 2 diabetes mellitus without complications; E78.5 Hyperlipidemia, unspecified; E66.9 Obesity, unspecified; J44.9 Chronic obstructive pulmonary disease, unspecified; R06.83 Snoring; R53.83 Other fatigue; R94.31 Abnormal electrocardiogram [ECG] [EKG]; Z72.0 Tobacco use; Z79.84 Long term (current) use of oral hypoglycemic drugs; Z68.41 Body mass index [BMI] 40.0-44.9, adult
CPT/HCPCS: 71046; 93306; 94060; 94640

== ENCOUNTER → 2022-05-10 14:16 | Outpatient (CLI) | payer BC, SELFPAY ==
--- NOTE | 2022-05-10 14:19 | CT_ITS ---
FINAL REPORT CLINICAL HISTORY: lung cancer screening copd family hx of lung cancer smoker, 1.5 ppd x 25 years FINDINGS: Low-Dose Chest CT CTDI vol (mGy): 2.90 DLP (mGy-cm): 96.38 Axial images were obtained from the lung apex to the mid abdomen by computed tomography. Low-dose protocol was utilized. FINDINGS: CHEST: There are borderline sized bilateral axillary lymph nodes. There is no hilar or mediastinal adenopathy. The heart is proper size. There is no pericardial or pleural effusion. Limited images of the upper abdomen demonstrate a 17 mm left adrenal nodule, favor a adenoma. Lung window images demonstrate no pulmonary mass or suspicious nodule. There is right upper lobe atelectasis or scarring. IMPRESSION: No pulmonary mass or suspicious nodule identified. Lung RADS category 1. Recommend 12 month follow-up low-dose chest CT. Reviewed, Interpreted and Dictated by Triston Betts III, MD Transcribed by Stefani Figueroa Authenticated and [facility]
== END ==
PROVIDERS: PCP Physician Assistant; Visit Provider Internal Medicine Pulmonary Disease
DX: Z87.891 Personal history of nicotine dependence (principal); Z12.2 Encounter for screening for malignant neoplasm of respiratory organs
CPT/HCPCS: 71271

== ENCOUNTER → 2022-12-20 09:34 | Outpatient (CLI) | payer BC, SELFPAY ==
[2022-12-20 10:04] LABS: Basophils # 0.1 K/mm3 (0-0.2); Eosinophils # 0.2 K/mm3 (0.0-0.4); Eosinophils % 2.7 % (0.1-12.0); Hematocrit 53.2 % (42.0-52.0); Hemoglobin 17.2 g/dL (14.1-18.0); Lymphocytes % 25.1 % (10-50); Mean Corpuscular HGB Conc 32.3 g/dL (31.8-35.4); Mean Corpuscular Volume 99.1 fl (80-94); Mean Platelet Volume 9.1 fl (7.4-10.4); Monocytes # 0.4 K/mm3 (0.1-1.0); Monocytes % 5.6 % (1.7-9.3); Neutrophils # 5.1 K/mm3 (1.8-7.8); Neutrophils % 65.7 % (37.0-80.0); Platelet Count 157 K/mm3 (142-424); Red Blood Count 5.37 M/mm3 (4.60-6.20); Red Cell Distribution Width 14.3 % (11.5-17.5); White Blood Count 7.8 K/mm3 (4.8-10.8)
[2022-12-20 10:37] LABS: Chloride 101 mmol/L (98-107)
[2022-12-20 10:38] LABS: Potassium 4.8 mmoL/L (3.5-5.1); Sodium 139 mmol/L (136-145)
[2022-12-20 10:40] LABS: Alanine Aminotransferase 30 U/L (12-78); Alkaline Phosphatase 65 U/L (38-126); Anion Gap 8.8 mEq/L (5-15); Aspartate Amino Transferase 27 U/L (17-59); Bilirubin,Direct 0.3 mg/dl (0.0-0.4); Bilirubin,Indirect 0.1 mg/dL (0.0-0.9); Bilirubin,Total 0.4 mg/dl (0.2-1.3); Bilirubin,Unconjugated 0.1 mg/dL (0.0-1.1); Blood Urea Nitrogen 12 mg/dl (9-20); Calcium 9.1 mg/dl (8.4-10.2); Carbon Dioxide 34 mmol/L (22.0-30.0); Cholesterol 178 mg/dl (140-200); Estimated Glomerular Filt Rate 117 ml/min (>60); GFR (African American) 142 ML/MIN (>60); Glucose 270 mg/dl (74-100); Triglycerides 112 mg/dl (30-150); VLDL Cholesterol 22 mg/dL (0-40)
[2022-12-20 10:41] LABS: Albumin Level 4.2 g/dl (3.5-5.0); Chol/HDL Ratio 3.9 (1-3.5); HDL Cholesterol 46 mg/dl (40-60); Magnesium 1.6 mg/dl (1.6-2.3)
[2022-12-20 11:03] LABS: Free T4 (Free Thyroxine) 1.04 ng/dl (0.78-2.19)
[2022-12-20 11:17] LABS: Thyroid Stimulating Hormone 1.23 uIU/mL (0.465-4.68)
[2022-12-20 19:30] LABS: Direct LDL Cholesterol 128.79 mg/dL (100-129)
== END ==
PROVIDERS: PCP Physician Assistant; Visit Provider Physician Assistant
DX: I25.10 Atherosclerotic heart disease of native coronary artery without angina pectoris (principal); I10 Essential (primary) hypertension; E78.2 Mixed hyperlipidemia; R94.31 Abnormal electrocardiogram [ECG] [EKG]; Z72.0 Tobacco use
CPT/HCPCS: 36415; 80048; 80061; 80076; 83735; 84439; 84443; 85025

== ENCOUNTER 2023-02-06 11:47 | Emergency (ER) | payer BC, SELFPAY ==
[2023-02-06 12:15] VITALS: BP 102/44; PULSE 84; RESP 20; TEMP 37; O2SAT 96; BMI 44.8
--- NOTE | 2023-02-06 12:20 | EXP.UTC ---
Discharge Plan Disposition Patient Disposition: Home, Self-Care Condition: Good Prescriptions Prescriptions: New benzonatate [benzonatate] 100 mg capsule 100 mg PO TIDP PRN (Reason: Cough) Qty: 30 0RF methylprednisolone 4 mg Tablets,Dose Pack 4 mg PO DIRECTED Qty: 21 0RF amoxicillin-pot clavulanate 875-125 mg Tablet 1 tab PO Q12H Qty: 20 0RF guaifenesin [Mucinex] 600 mg tablet extended release 12hr 600 - 1,200 mg PO BIDP PRN (Reason: Congestion) Qty: 30 0RF No Action albuterol sulfate 1.25 mg/3 mL solution for nebulization 1.25 mg INHALATION QID PRN (Reason: shortness of breath or wheezing) Qty: 90 0RF lisinopril 20 mg tablet 20 mg PO DAILY Qty: 90 3RF Breztri Aerosphere 160-9-4.8 mcg/actuation HFA aerosol inhaler 2 inh IH BID 90 Days Qty: 10.7 3RF atorvastatin [Lipitor] 40 mg tablet 40 mg PO DAILY aspirin 81 mg tablet,delayed release (DR/EC) See Rx Instructions .ROUTE .COMPLEX Rx Instructions: TAKE ONE TABLET BY MOUTH ONCE A DAY meloxicam 7.5 mg tablet See Rx Instructions .ROUTE .COMPLEX Rx Instructions: TAKE ONE TABLET BY MOUTH ONCE A DAY FOR PAIN montelukast 10 mg tablet See Rx Instructions .ROUTE .COMPLEX Rx Instructions: TAKE ONE TABLET BY MOUTH ONCE A DAY metoprolol succinate 25 mg tablet extended release 24 hr See Rx Instructions .ROUTE .COMPLEX Rx Instructions: TAKE ONE TABLET BY MOUTH ONCE A DAY ergocalciferol (vitamin D2) 1,250 mcg (50,000 unit) capsule See Rx Instructions .ROUTE .COMPLEX Rx Instructions: TAKE ONE CAPSULE BY MOUTH EVERY WEEK FOR SUPPLEMENT albuterol sulfate 90 mcg/actuation HFA aerosol inhaler See Rx Instructions .ROUTE .COMPLEX Rx Instructions: INHALE 2 PUFFS BY MOUTH EVERY 6 HOURS NEEDED FOR SHORTNESS OF BREATH OR WHEEZING metformin 500 mg tablet extended release 24 hr See Rx Instructions .ROUTE .COMPLEX Rx Instructions: TAKE ONE TABLET BY MOUTH ONCE A DAY FOR DIABETES loratadine 10 mg tablet See Rx Instructions .ROUTE .COMPLEX Rx Instructions: TAKE ONE TABLET BY MOUTH ONCE A DAY Referrals Follow up/Referrals: Elaine Scott PA [Primary Care Provider] - See instructions Activity Restrictions/Add. Instructions Additional Instructions/Restrictions: Drink plenty of fluids. Take tylenol or ibuprofen for pain or fever. Take the medications as directed. Follow up with your regular doctor. GO TO THE ER FOR ANY WORSENING SYMPTOMS Clinical Impressions Clinical Impression: Sinusitis, Bronchitis Instructions Patient Instructions: Sinusitis, DI for Sinusitis Discharge ED Provider: Alexis Appiah [facility] General Stated complaint: cough-stopped up Time Seen by Provider: 02/06/23 12:19 History of Present Illness Provider Complaint: He states that he has had sinus and chest congestion for the past 2 days. Related Data Home Medications Medication Instructions Recorded Confirmed albuterol sulfate 90 mcg/actuation See Rx Instructions .Route 02/06/23 02/06/23 aerosol inhaler .COMPLEX . aspirin 81 mg tablet,delayed See Rx Instructions .Route 02/06/23 02/06/23 release .COMPLEX . atorvastatin 40 mg tablet (Lipitor) 40 mg PO DAILY High cholesterol 02/06/23 02/06/23 ergocalciferol (vitamin D2) 1,250 See Rx Instructions .Route 02/06/23 02/06/23 mcg (50,000 unit) capsule .COMPLEX . loratadine 10 mg tablet See Rx Instructions .Route 02/06/23 02/06/23 .COMPLEX . meloxicam 7.5 mg tablet See Rx Instructions .Route 02/06/23 02/06/23 .COMPLEX Pain metformin 500 mg tablet,extended See Rx Instructions .Route 02/06/23 02/06/23 release 24 hr .COMPLEX Diabetes metoprolol succinate 25 mg See Rx Instructions .Route 02/06/23 02/06/23 tablet,extended release 24 hr .COMPLEX . montelukast 10 mg tablet See Rx Instructions .Route 02/06/23 02/06/23 .COMPLEX . Previous Rx's Medication Instructions Recorde
[2023-02-06 13:09] VITALS: BP 102/44; PULSE 84; RESP 20; TEMP 37; O2SAT 96
== END 2023-02-06 13:09 | disposition home or self-care (01) ==
PROVIDERS: Emergency Provider Nurse Practitioner Family; PCP Physician Assistant
DX: J20.9 Acute bronchitis, unspecified (principal); J01.90 Acute sinusitis, unspecified; E11.9 Type 2 diabetes mellitus without complications; I10 Essential (primary) hypertension; J44.9 Chronic obstructive pulmonary disease, unspecified; F17.210 Nicotine dependence, cigarettes, uncomplicated
CPT/HCPCS: 99212; 99214; G0463

== ENCOUNTER → 2023-06-20 09:22 | Outpatient (CLI) | payer BC, SELFPAY ==
[2023-06-20 11:22] LABS: Bilirubin,Unconjugated 0.2 mg/dL (0.0-1.1)
[2023-06-20 11:23] LABS: Alanine Aminotransferase 29 U/L (12-78); Albumin Level 3.9 g/dl (3.5-5.0); Alkaline Phosphatase 75 U/L (38-126); Aspartate Amino Transferase 27 U/L (17-59); Bilirubin,Direct 0.4 mg/dl (0.0-0.4); Bilirubin,Indirect 0.2 mg/dL (0.0-0.9); Bilirubin,Total 0.6 mg/dl (0.2-1.3); Chol/HDL Ratio 4.7 (1-3.5); Cholesterol 170 mg/dl (140-200); HDL Cholesterol 36 mg/dl (40-60); Total Protein,Serum 6.8 g/dl (6.3-8.2); Triglycerides 147 mg/dl (30-150); VLDL Cholesterol 29 mg/dL (0-40)
[2023-06-20 11:34] LABS: Direct LDL Cholesterol 103.03 mg/dL (100-129)
== END ==
PROVIDERS: PCP Physician Assistant; Visit Provider Physician Assistant
DX: I11.9 Hypertensive heart disease without heart failure (principal); E11.9 Type 2 diabetes mellitus without complications; Z79.84 Long term (current) use of oral hypoglycemic drugs
CPT/HCPCS: 36415; 80061; 80076

== ENCOUNTER → 2023-07-27 23:09 | Outpatient (CLI) | payer BC, SELFPAY ==
[2023-07-27 19:00] LABS: Alanine Aminotransferase 26 U/L (12-78); Albumin Level 4.1 g/dl (3.5-5.0); Albumin/Globulin Ratio 1.5 (1.1-1.8); Alkaline Phosphatase 62 U/L (38-126); Anion Gap 12.2 mEq/L (5-15); Aspartate Amino Transferase 27 U/L (17-59); Bilirubin,Total 0.4 mg/dl (0.2-1.3); Blood Urea Nitrogen 14 mg/dl (9-20); Calcium 8.9 mg/dl (8.4-10.2); Carbon Dioxide 30 mmol/L (22.0-30.0); Chloride 95 mmol/L (98-107); Cholesterol 180 mg/dl (140-200); Estimated Glomerular Filt Rate 100 ml/min (>60); GFR (African American) 121 ML/MIN (>60); Globulin 2.7 g/dL (1.3-3.2); Glucose 291 mg/dl (74-100); HDL Cholesterol 36 mg/dl (40-60); Potassium 4.2 mmoL/L (3.5-5.1); Sodium 133 mmol/L (136-145); Total Protein,Serum 6.8 g/dl (6.3-8.2); Triglycerides 252 mg/dl (30-150); VLDL Cholesterol 50 mg/dL (0-40)
[2023-07-27 19:13] LABS: Direct LDL Cholesterol 100.12 mg/dL (100-129)
[2023-07-27 19:19] LABS: 25-OH Vitamin D, Total 37.2 ng/mL (30-100)
[2023-07-27 19:32] LABS: Hemoglobin A1C 9.4 % (4.0-6.0); Prostate Specific Ag Screen 0.7 ng/ml (0.0-4.0); Thyroid Stimulating Hormone 0.93 uIU/mL (0.465-4.68)
[2023-07-27 20:04] LABS: Basophils # 0.1 K/mm3 (0-0.2); Basophils % 0.6 % (0.1-2.0); Eosinophils # 0.2 K/mm3 (0.0-0.4); Eosinophils % 1.8 % (0.1-12.0); Hematocrit 50.4 % (42.0-52.0); Hemoglobin 15.9 g/dL (14.1-18.0); Lymphocytes # 2.5 K/mm3 (0.7-4.5); Lymphocytes % 26.3 % (10-50); Mean Corpuscular HGB Conc 31.6 g/dL (31.8-35.4); Mean Corpuscular Hemoglobin 30.8 pg (27.0-31.2); Mean Corpuscular Volume 97.7 fl (80-94); Monocytes # 0.6 K/mm3 (0.1-1.0); Monocytes % 5.9 % (1.7-9.3); Neutrophils # 6.1 K/mm3 (1.8-7.8); Neutrophils % 65.4 % (37.0-80.0); Platelet Count 175 K/mm3 (142-424); Red Blood Count 5.16 M/mm3 (4.60-6.20); Red Cell Distribution Width 14.2 % (11.5-17.5); White Blood Count 9.4 K/mm3 (4.8-10.8)
== END ==
PROVIDERS: PCP Physician Assistant; Visit Provider Physician Assistant
DX: E11.9 Type 2 diabetes mellitus without complications (principal); E66.9 Obesity, unspecified; Z68.41 Body mass index [BMI] 40.0-44.9, adult; Z79.84 Long term (current) use of oral hypoglycemic drugs; Z79.899 Other long term (current) drug therapy; Z12.5 Encounter for screening for malignant neoplasm of prostate
CPT/HCPCS: 80053; 80061; 82306; 83036; 84443; 85025; G0103

== ENCOUNTER 2023-08-31 17:09 | Emergency (ER) | payer BC, SELFPAY ==
[2023-08-31 17:09] VITALS: BP 125/64; PULSE 77; RESP 16; TEMP 36.8; O2SAT 94; BMI 42.5
--- NOTE | 2023-08-31 17:23 | XR_ITS ---
PROCEDURE INFORMATION: Exam: XR Right Hand Exam date and time: 08/31/2023 5:22 PM Age: 57 years old Clinical indication: Swelling; Hand; Right; Additional info: Swollen TECHNIQUE: Imaging protocol: Radiologic exam of the right hand. Views: 3 or more views. COMPARISON: No relevant prior studies available. FINDINGS: Bones/joints: Normal. Soft tissues: Normal. IMPRESSION: No acute findings.
--- NOTE | 2023-08-31 17:39 | EXP.UTC ---
Discharge Plan Disposition Patient Disposition: Home, Self-Care Condition: Good Prescriptions Prescriptions: New Eucerin Advanced Repair Hand Cream 1 applic topical QID Qty: 78 2RF No Action albuterol sulfate 90 mcg/actuation HFA aerosol inhaler See Rx Instructions .ROUTE .COMPLEX Qty: 8.5 2RF Dose Instruction: INHALE 2 PUFFS BY MOUTH EVERY 6 HOURS NEEDED FOR SHORTNESS OF BREATH OR WHEEZING Rx Instructions: INHALE 2 PUFFS BY MOUTH EVERY 6 HOURS NEEDED FOR SHORTNESS OF BREATH OR WHEEZING aspirin 81 mg tablet,delayed release (DR/EC) See Rx Instructions .ROUTE .COMPLEX Qty: 30 3RF Dose Instruction: TAKE ONE TABLET BY MOUTH ONCE A DAY Rx Instructions: TAKE ONE TABLET BY MOUTH ONCE A DAY cholecalciferol (vitamin D3) 25 mcg (1,000 unit) tablet 25 mcg PO DAILY Qty: 90 1RF ergocalciferol (vitamin D2) 1,250 mcg (50,000 unit) capsule See Rx Instructions .ROUTE .COMPLEX Qty: 14 3RF Dose Instruction: TAKE ONE CAPSULE BY MOUTH EVERY WEEK FOR SUPPLEMENT Rx Instructions: TAKE ONE CAPSULE BY MOUTH EVERY WEEK FOR SUPPLEMENT lisinopril 20 mg tablet 20 mg PO DAILY Qty: 90 1RF loratadine 10 mg tablet See Rx Instructions .ROUTE .COMPLEX Qty: 30 2RF Dose Instruction: TAKE ONE TABLET BY MOUTH ONCE A DAY Rx Instructions: TAKE ONE TABLET BY MOUTH ONCE A DAY meloxicam 7.5 mg tablet See Rx Instructions .ROUTE .COMPLEX Qty: 30 2RF Dose Instruction: TAKE ONE TABLET BY MOUTH ONCE A DAY FOR PAIN Rx Instructions: TAKE ONE TABLET BY MOUTH ONCE A DAY FOR PAIN metformin 500 mg tablet extended release 24 hr See Rx Instructions .ROUTE .COMPLEX Qty: 30 3RF Dose Instruction: TAKE ONE TABLET BY MOUTH ONCE A DAY FOR DIABETES Rx Instructions: TAKE ONE TABLET BY MOUTH ONCE A DAY FOR DIABETES metoprolol succinate 25 mg tablet extended release 24 hr See Rx Instructions .ROUTE .COMPLEX Qty: 30 2RF Dose Instruction: TAKE ONE TABLET BY MOUTH ONCE A DAY Rx Instructions: TAKE ONE TABLET BY MOUTH ONCE A DAY ropinirole 1 mg tablet 1 mg PO HS Qty: 30 2RF montelukast 10 mg tablet See Rx Instructions .ROUTE .COMPLEX Qty: 30 2RF Dose Instruction: TAKE ONE TABLET BY MOUTH ONCE A DAY Rx Instructions: TAKE ONE TABLET BY MOUTH ONCE A DAY albuterol sulfate 1.25 mg/3 mL solution for nebulization 1.25 mg INHALATION QID PRN (Reason: shortness of breath or wheezing) Qty: 90 0RF atorvastatin 40 mg tablet See Rx Instructions .ROUTE .COMPLEX Qty: 30 5RF Dose Instruction: TAKE ONE TABLET BY MOUTH ONCE A DAY Rx Instructions: TAKE ONE TABLET BY MOUTH ONCE A DAY glipizide 10 mg tablet 10 mg PO DAILY Qty: 30 2RF Referrals Follow up/Referrals: Elaine Scott PA [Primary Care Provider] - See instructions Activity Restrictions/Add. Instructions Additional Instructions/Restrictions: Use the Eucerin on your hands as directed. Follow up with your primary care physician. GO TO THE ER FOR ANY WORSENING OR LIFE THREATENING SYMPTOMS Clinical Impressions Clinical Impression: Xerosis cutis Discharge ED Provider: Alexis Appiah [facility] [place] HPI General Stated complaint: swelling RT hand Mode of Arrival: Ambulatory Source of Information: Patient Limitations: No Limitations Time Seen by Provider: 08/31/23 17:39 Description of Symptoms (Recalled from Triage Doc. by RN): pt presents to [facility] for right hand redness and swelling. HEENT Symptoms (Recalled from RN notes): No Resp Symptoms (Recalled from RN notes): No Skin Symptoms (Recalled from RN notes): No MS Symptoms (Recalled from RN notes): Yes Functional Status (Recalled from RN notes): n/a History of Present Illness Provider Complaint: He states that he has had redness and swelling of the back of his right hand for the past 1 week. He denies any known injury. He works outside a lot. He states that every fall he starts hav
[2023-08-31 17:56] VITALS: BP 125/64; PULSE 77; RESP 16; TEMP 36.8; O2SAT 94
== END 2023-08-31 18:10 | disposition home or self-care (01) ==
PROVIDERS: Emergency Provider Nurse Practitioner Family; PCP Physician Assistant
DX: L85.3 Xerosis cutis (principal); F17.210 Nicotine dependence, cigarettes, uncomplicated; J44.9 Chronic obstructive pulmonary disease, unspecified; E11.9 Type 2 diabetes mellitus without complications; I10 Essential (primary) hypertension; E55.9 Vitamin D deficiency, unspecified; Z79.84 Long term (current) use of oral hypoglycemic drugs
CPT/HCPCS: 73130; 99212; 99213; G0463

== ENCOUNTER 2023-12-21 09:29 | Outpatient (CLI) | payer BC, SELFPAY ==
[2023-12-21 09:45] LABS: Basophils # 0.1 K/mm3 (0-0.2); Basophils % 0.7 % (0.1-2.0); Eosinophils # 0.2 K/mm3 (0.0-0.4); Eosinophils % 2.5 % (0.1-12.0); Hematocrit 51.1 % (42.0-52.0); Hemoglobin 16.8 g/dL (14.1-18.0); Lymphocytes % 21.5 % (10-50); Mean Corpuscular HGB Conc 32.8 g/dL (31.8-35.4); Mean Corpuscular Hemoglobin 32.1 pg (27.0-31.2); Mean Corpuscular Volume 97.9 fl (80-94); Monocytes # 0.5 K/mm3 (0.1-1.0); Monocytes % 5.2 % (1.7-9.3); Neutrophils # 6.6 K/mm3 (1.8-7.8); Platelet Count 167 K/mm3 (142-424); Red Blood Count 5.22 M/mm3 (4.60-6.20); Red Cell Distribution Width 13.8 % (11.5-17.5); White Blood Count 9.4 K/mm3 (4.8-10.8)
[2023-12-21 10:57] LABS: Alanine Aminotransferase 26 U/L (12-78); Albumin Level 4.1 g/dl (3.5-5.0); Alkaline Phosphatase 59 U/L (38-126); Anion Gap 9.8 mEq/L (5-15); Aspartate Amino Transferase 24 U/L (17-59); Bilirubin,Direct 0.3 mg/dl (0.0-0.4); Bilirubin,Indirect 0.1 mg/dL (0.0-0.9); Bilirubin,Total 0.4 mg/dl (0.2-1.3); Bilirubin,Unconjugated 0.1 mg/dL (0.0-1.1); Blood Urea Nitrogen 13 mg/dl (9-20); Calcium 9.4 mg/dl (8.4-10.2); Carbon Dioxide 34 mmol/L (22.0-30.0); Chloride 99 mmol/L (98-107); Cholesterol 179 mg/dl (140-200); Estimated Glomerular Filt Rate 100 ml/min (>60); GFR (African American) 121 ML/MIN (>60); Glucose 233 mg/dl (74-100); HDL Cholesterol 36 mg/dl (40-60); Magnesium 1.7 mg/dl (1.6-2.3); Potassium 4.8 mmoL/L (3.5-5.1); Sodium 138 mmol/L (136-145); Total Protein,Serum 6.8 g/dl (6.3-8.2); Triglycerides 217 mg/dl (30-150); VLDL Cholesterol 43 mg/dL (0-40)
[2023-12-21 11:08] LABS: Direct LDL Cholesterol 102.77 mg/dL (100-129)
[2023-12-21 11:14] LABS: Free T4 (Free Thyroxine) 1.01 ng/dl (0.78-2.19)
[2023-12-21 11:26] LABS: Thyroid Stimulating Hormone 1.44 uIU/mL (0.465-4.68)
[2023-12-21 19:06] LABS: Hemoglobin A1C 8.6 % (4.0-6.0)
== END 2023-12-21 23:59 ==
LOC: LAB 09:29
PROVIDERS: PCP Physician Assistant; Visit Provider Nurse Practitioner Family
DX: E11.9 Type 2 diabetes mellitus without complications (principal); E78.5 Hyperlipidemia, unspecified; I11.9 Hypertensive heart disease without heart failure; I25.10 Atherosclerotic heart disease of native coronary artery without angina pectoris; R94.31 Abnormal electrocardiogram [ECG] [EKG]; E66.01 Morbid (severe) obesity due to excess calories; Z68.41 Body mass index [BMI] 40.0-44.9, adult; F17.210 Nicotine dependence, cigarettes, uncomplicated; Z79.84 Long term (current) use of oral hypoglycemic drugs
CPT/HCPCS: 36415; 80048; 80061; 80076; 83036; 83735; 84439; 84443; 85025

== ENCOUNTER 2024-03-10 16:39 | Emergency (ER) | payer BC, SELFPAY ==
[2024-03-10 17:05] VITALS: BP 117/76; PULSE 76; RESP 18; TEMP 37.1; O2SAT 95; BMI 41.3
--- NOTE | 2024-03-10 17:23 | ED_ITS ---
Discharge Plan Disposition Patient Disposition: Home, Self-Care Condition: Good Prescriptions Prescriptions: New cephalexin 500 mg tablet 500 mg PO BID 7 Days Qty: 14 0RF No Action ergocalciferol (vitamin D2) 1,250 mcg (50,000 unit) capsule See Rx Instructions .ROUTE .COMPLEX Qty: 14 3RF Dose Instruction: TAKE ONE CAPSULE BY MOUTH EVERY WEEK FOR SUPPLEMENT Rx Instructions: TAKE ONE CAPSULE BY MOUTH EVERY WEEK FOR SUPPLEMENT albuterol sulfate 1.25 mg/3 mL solution for nebulization 1.25 mg INHALATION QID PRN (Reason: shortness of breath or wheezing) Qty: 90 0RF atorvastatin 80 mg tablet 80 mg PO DAILY Qty: 30 11RF Ozempic 1 mg/dose (4 mg/3 mL) pen injector 1 mg SQ WEEKLY Qty: 3 2RF lisinopril 20 mg tablet 10 mg PO DAILY Qty: 30 0RF cholecalciferol (vitamin D3) 25 mcg (1,000 unit) tablet See Rx Instructions .ROUTE .COMPLEX Qty: 30 1RF Dose Instruction: TAKE ONE TABLET BY MOUTH ONCE A DAY Rx Instructions: TAKE ONE TABLET BY MOUTH ONCE A DAY montelukast 10 mg tablet See Rx Instructions .ROUTE .COMPLEX Qty: 30 0RF Dose Instruction: TAKE ONE TABLET BY MOUTH ONCE A DAY Rx Instructions: TAKE ONE TABLET BY MOUTH ONCE A DAY loratadine 10 mg tablet See Rx Instructions .ROUTE .COMPLEX Qty: 30 0RF Dose Instruction: TAKE ONE TABLET BY MOUTH ONCE A DAY Rx Instructions: TAKE ONE TABLET BY MOUTH ONCE A DAY glipizide 10 mg tablet See Rx Instructions .ROUTE .COMPLEX Qty: 30 0RF Dose Instruction: TAKE ONE TABLET BY MOUTH ONCE A DAY Rx Instructions: TAKE ONE TABLET BY MOUTH ONCE A DAY meloxicam 7.5 mg tablet See Rx Instructions .ROUTE .COMPLEX Qty: 30 0RF Dose Instruction: TAKE ONE TABLET BY MOUTH ONCE A DAY FOR PAIN Rx Instructions: TAKE ONE TABLET BY MOUTH ONCE A DAY FOR PAIN metoprolol succinate 25 mg tablet extended release 24 hr See Rx Instructions .ROUTE .COMPLEX Qty: 30 0RF Dose Instruction: TAKE ONE TABLET BY MOUTH ONCE A DAY Rx Instructions: TAKE ONE TABLET BY MOUTH ONCE A DAY ropinirole 1 mg tablet See Rx Instructions .ROUTE .COMPLEX Qty: 30 0RF Dose Instruction: TAKE ONE TABLET BY MOUTH AT BEDTIME Rx Instructions: TAKE ONE TABLET BY MOUTH AT BEDTIME albuterol sulfate 90 mcg/actuation HFA aerosol inhaler See Rx Instructions .ROUTE .COMPLEX Qty: 8.5 0RF Dose Instruction: INHALE 2 PUFFS BY MOUTH EVERY 6 HOURS NEEDED FOR SHORTNESS OF BREATH OR WHEEZING Rx Instructions: INHALE 2 PUFFS BY MOUTH EVERY 6 HOURS NEEDED FOR SHORTNESS OF BREATH OR WHEEZING metformin 500 mg tablet extended release 24 hr See Rx Instructions .ROUTE .COMPLEX Qty: 30 0RF Dose Instruction: TAKE ONE TABLET BY MOUTH ONCE A DAY FOR DIABETES Rx Instructions: TAKE ONE TABLET BY MOUTH ONCE A DAY FOR DIABETES aspirin 81 mg tablet,delayed release (DR/EC) See Rx Instructions .ROUTE .COMPLEX Qty: 30 0RF Dose Instruction: TAKE ONE TABLET BY MOUTH ONCE A DAY Rx Instructions: TAKE ONE TABLET BY MOUTH ONCE A DAY Eucerin Advanced Repair Hand Cream 1 applic topical QID Qty: 78 2RF Referrals Follow up/Referrals: Elaine Scott PA [Primary Care Provider] - See instructions Clinical Impressions Clinical Impression: Skin pimple Instructions Patient Instructions: DI for Acne Discharge ED Provider: Ehsan ([facility] [facility] [place] General Stated complaint: right ear has a spot that is aggervating Mode of Arrival: Ambulatory Source of Information: Patient Limitations: No Limitations Time Seen by Provider: 03/10/24 17:23 Description of Symptoms (Recalled from Triage Doc. by RN): Pt's symptoms are right ear pain. HEENT Symptoms (Recalled from RN notes): Yes Resp Symptoms (Recalled from RN notes): No Skin Symptoms (Recalled from RN notes): No MS Symptoms (Recalled from RN notes): No Functional Status (Recalled from RN notes): n/a History of Present Illness Provider Complaint: 58 yr old male presents for rt ear pain from a pimple just inside ear Related Data Previous Rx's Medication Instructions Recorded albuterol sulfate 1.25 mg/3 mL 1.25 mg (3 mL) inhalation QID PRN 01/03/22 solution for nebulization shortness of breath or wheezing #90 mL ergocalciferol (vitamin D2) 1,250 See Rx Instructions .Route 07/27/23 mcg (50,000 unit) capsule .COMPLEX #14 caps emollient combination no.117 1 applic topical QID #78 grams 08/31/23 (Eucerin Advanced Repair Hand topical cream) atorvastatin 80 mg tablet 80 mg PO DAILY #30 tabs 12/21/23 cholecalciferol (vitamin D3) 25 See Rx Instructions .Route 01/10/24 mcg (1,000 unit) tablet .COMPLEX #30 tabs albuterol sulfate 90 mcg/actuation See Rx Instructions .Route 02/13/24 aerosol inhaler .COMPLEX #8.5 grams aspirin 81 mg tablet,delayed See Rx Instructions .Route 02/13/24 release .COMPLEX #30 tabs glipizide 10 mg tablet See Rx Instructions .Route 02/13/24 .COMPLEX #30 tabs loratadine 10 mg tablet See Rx Instructions .Route 02/13/24 .COMPLEX #30 tabs meloxicam 7.5 mg tablet See Rx Instructions .Route 02/13/24 .COMPLEX #30 tabs metformin 500 mg tablet,extended See Rx Instructions .Route 02/13/24 release 24 hr .COMPLEX #30 tabs metoprolol succinate 25 mg See Rx Instructions .Route 02/13/24 tablet,extended release 24 hr .COMPLEX #30 tabs montelukast 10 mg tablet See Rx Instructions .Route 02/13/24 .COMPLEX #30 tabs ropinirole 1 mg tablet See Rx Instructions .Route 02/13/24 .COMPLEX #30 tabs lisinopril 20 mg tablet 10 mg (1/2 x 20 mg) PO DAILY #30 02/22/24 tabs semaglutide 1 mg/dose (4 mg/3 mL) 1 mg (0.75 mL) SQ WEEKLY #3 mL 02/22/24 subcutaneous pen injector (Ozempic) cephalexin 500 mg tablet 500 mg PO BID 7 days #14 tabs 03/10/24 Allergies Allergy/AdvReac Type Severity Reaction Status Date / Time No Known Allergies Allergy Verified 03/10/24 17:22 Worker's Comp Is this a Worker's Comp case?: No [facility] Disclaimer: The information contained in this section may have been updated after the patient was seen, as this information can be updated by other users. Medical History , [employer]) Sinus tachycardia RVH (right ventricular hypertrophy) COPD (chronic obstructive pulmonary disease) Diabetes mellitus Vitamin D deficiency Hypertension Social History , [employer]) Smoking Status: Current every day smoker tobacco type: cigarettes packs per day: 1 alcohol intake: current alcohol intake frequency: a few times a month substance use type: denies use current occupational status: employed Travel in the last 8 weeks: Inside the [place] household members: none housing: house current occupation: [employer] caffeine: Yes ROS Obtained: Yes All systems reviewed & no additional complaints except as documented Constitutional Constitutional: Reports system reviewed and no additional complaints, except as documented Eyes Eyes: Reports system reviewed and no additional complaints, except as documented ENT Ears, Nose, Mouth, and Throat: Reports system reviewed and no additional complaints, except as documented, Reports as per HPI and Reports otalgia Cardiovascular Cardiovascular: Reports system reviewed and no additional complaints, except as documented Respiratory Respiratory: Reports system reviewed and no additional complaints, except as documented Gastrointestinal Gastrointestingal: Reports system reviewed and no additional complaints, except as documented Integumentary/Breasts Skin/Breast: Reports system reviewed and no additional complaints, except as documented, Reports as per HPI and Reports furuncle Neurologic Neurologic: Reports system reviewed and no additional complaints, except as documented Hematologic/Lymphatic Henatologic/Lymphatic: Reports system reviewed and no additional complaints, except as documented Allergic/Immunologic Allergic/Immunologic: Reports system reviewed and no additional complaints, except as documented Physical Exam General General appearance: alert and in no apparent distress Eye Eye exam: Present normal appearance and PERRL ENT ENT exam: Present normal exam Expanded ENT Exam Ear images: 2 1. pimple- white pus Respiratory Respiratory exam: Present normal lung sounds bilaterally Cardiovascular Cardiovascular exam: Present regular rate and normal rhythm Neurological Exam Neurological exam: Present alert and oriented X3 Skin Skin exam: Present warm and other Medical Decision Making Medical Records Medical records reviewed: Yes I reviewed the patient's medical records. Gael Inquiry Pt receiving controlled substance: No Gael was queried for this patient: No Vital Signs: 03/10/24 17:05 Temperature 98.7 F Temperature Source Oral Pulse Rate [Right Radial] 76 Respiratory Rate 18 Blood Pressure [Right Arm] 117/76 Blood Pressure Mean [Right Arm] 89 Blood Pressure Source [Right Arm] Automatic Cuff Blood Pressure Position [Right Arm] Sitting 02 Sat by Pulse Oximetry 95 Oxygen Delivery Method Room Air Orders (Tests/Meds): ORDERS Category Date Time Status Wound Culture and Gram Stain Stat Micro 03/10/24 17:21 Ordered
[2024-03-10 17:36] VITALS: BP 117/76; PULSE 76; RESP 18; TEMP 37.1; O2SAT 95
== END 2024-03-10 17:36 | disposition home or self-care (01) ==
PROVIDERS: Emergency Provider Nurse Practitioner Family; PCP Physician Assistant
DX: L08.9 Local infection of the skin and subcutaneous tissue, unspecified; B95.7 Other staphylococcus as the cause of diseases classified elsewhere
CPT/HCPCS: 87070; 87077; 87186; 87205; 99212; 99214; G0463

== ENCOUNTER 2024-03-21 09:31 | Outpatient (CLI) | payer BC, SELFPAY ==
[2024-03-21 10:09] LABS: Basophils # 0.1 K/mm3 (0-0.2); Eosinophils # 0.2 K/mm3 (0.0-0.4); Eosinophils % 1.7 % (0.1-12.0); Hematocrit 48.8 % (42.0-52.0); Hemoglobin 15.8 g/dL (14.1-18.0); Lymphocytes # 2.4 K/mm3 (0.7-4.5); Lymphocytes % 23.8 % (10-50); Mean Corpuscular HGB Conc 32.3 g/dL (31.8-35.4); Mean Corpuscular Hemoglobin 31.6 pg (27.0-31.2); Mean Platelet Volume 8.2 fl (7.4-10.4); Monocytes # 0.5 K/mm3 (0.1-1.0); Monocytes % 5.2 % (1.7-9.3); Neutrophils # 6.9 K/mm3 (1.8-7.8); Neutrophils % 68.3 % (37.0-80.0); Platelet Count 179 K/mm3 (142-424); Red Blood Count 4.98 M/mm3 (4.60-6.20); Red Cell Distribution Width 14.4 % (11.5-17.5); White Blood Count 10.1 K/mm3 (4.8-10.8)
[2024-03-21 10:45] LABS: Chloride 101 mmol/L (98-107); Sodium 137 mmol/L (136-145)
[2024-03-21 10:46] LABS: Potassium 4.3 mmoL/L (3.5-5.1)
[2024-03-21 10:48] LABS: Alanine Aminotransferase 30 U/L (12-78); Albumin Level 4.1 g/dl (3.5-5.0); Albumin/Globulin Ratio 1.5 (1.1-1.8); Alkaline Phosphatase 77 U/L (38-126); Anion Gap 10.3 mEq/L (5-15); Aspartate Amino Transferase 31 U/L (17-59); Bilirubin,Total 0.5 mg/dl (0.2-1.3); Blood Urea Nitrogen 11 mg/dl (9-20); Carbon Dioxide 30 mmol/L (22.0-30.0); Estimated Glomerular Filt Rate 117 ml/min (>60); GFR (African American) 141 ML/MIN (>60); Globulin 2.7 g/dL (1.3-3.2); Total Protein,Serum 6.8 g/dl (6.3-8.2)
[2024-03-21 10:49] LABS: Calcium 9.2 mg/dl (8.4-10.2); Chol/HDL Ratio 3.2 (1-3.5); Cholesterol 123 mg/dl (140-200); Glucose 105 mg/dl (74-100); HDL Cholesterol 39 mg/dl (40-60); Hemoglobin A1C 6.5 % (4.0-6.0); Triglycerides 82 mg/dl (30-150); VLDL Cholesterol 16 mg/dL (0-40)
[2024-03-21 11:01] LABS: Direct LDL Cholesterol 72.23 mg/dL (100-129)
[2024-03-21 11:05] LABS: 25-OH Vitamin D, Total 64.3 ng/mL (30-100)
== END 2024-03-21 23:59 | disposition home or self-care (01) ==
LOC: LAB 09:31
PROVIDERS: PCP Physician Assistant; Visit Provider Physician Assistant
DX: E78.2 Mixed hyperlipidemia (principal); I25.10 Atherosclerotic heart disease of native coronary artery without angina pectoris; Z79.899 Other long term (current) drug therapy
CPT/HCPCS: 36415; 80053; 80061; 82306; 83036; 84443; 85025

== ENCOUNTER 2024-07-28 09:08 | Emergency (ER) | payer BC, SELFPAY ==
[2024-07-28 09:26] VITALS: BP 133/72; PULSE 86; RESP 16; TEMP 36.8; O2SAT 94; BMI 34.9
--- NOTE | 2024-07-28 09:32 | ED_ITS ---
Discharge Plan Disposition Patient Disposition: Home, Self-Care Condition: Good Prescriptions Prescriptions: New prednisone 10 mg tablet 10 mg PO DIRECTED 9 Days Qty: 21 0RF Rx Instructions: Take 4 tablets daily for 3 days, then take 2 tablets daily for 3 days, then take 1 tablet daily for 3 days, then stop. benzonatate 100 mg capsule 100 mg PO TIDP PRN (Reason: Cough) Qty: 30 0RF amoxicillin-pot clavulanate 875-125 mg Tablet 1 tab PO Q12H Qty: 20 0RF No Action glipizide 10 mg tablet See Rx Instructions .ROUTE .COMPLEX Qty: 90 3RF Dose Instruction: TAKE ONE TABLET BY MOUTH ONCE A DAY Rx Instructions: TAKE ONE TABLET BY MOUTH ONCE A DAY ropinirole 1 mg tablet See Rx Instructions .ROUTE .COMPLEX Qty: 90 3RF Dose Instruction: TAKE ONE TABLET BY MOUTH AT BEDTIME Rx Instructions: TAKE ONE TABLET BY MOUTH AT BEDTIME lisinopril 10 mg tablet 10 mg PO DAILY Qty: 90 3RF semaglutide 2 mg/dose (8 mg/3 mL) pen injector 2 mg SQ WEEKLY Qty: 3 6RF montelukast 10 mg tablet See Rx Instructions .ROUTE .COMPLEX Qty: 90 3RF Dose Instruction: TAKE ONE TABLET BY MOUTH ONCE A DAY Rx Instructions: TAKE ONE TABLET BY MOUTH ONCE A DAY loratadine 10 mg tablet See Rx Instructions .ROUTE .COMPLEX Qty: 90 3RF Dose Instruction: TAKE ONE TABLET BY MOUTH ONCE A DAY Rx Instructions: TAKE ONE TABLET BY MOUTH ONCE A DAY meloxicam 7.5 mg tablet See Rx Instructions .ROUTE .COMPLEX Qty: 90 3RF Dose Instruction: TAKE ONE TABLET BY MOUTH ONCE A DAY FOR PAIN Rx Instructions: TAKE ONE TABLET BY MOUTH ONCE A DAY FOR PAIN ondansetron 8 mg tablet,disintegrating 8 mg PO Q8H PRN (Reason: nausea and vomiting) 30 Days Qty: 30 2RF albuterol sulfate 1.25 mg/3 mL solution for nebulization 1.25 mg INHALATION QID PRN (Reason: shortness of breath or wheezing) Qty: 90 0RF metoprolol succinate 25 mg tablet extended release 24 hr 25 mg PO DAILY Qty: 90 3RF atorvastatin 80 mg tablet 80 mg PO DAILY Qty: 90 3RF aspirin 81 mg tablet,delayed release (DR/EC) 81 mg PO DAILY Qty: 90 3RF albuterol sulfate 90 mcg/actuation HFA aerosol inhaler See Rx Instructions .ROUTE .COMPLEX Qty: 8.5 4RF Dose Instruction: INHALE 2 PUFFS BY MOUTH EVERY 6 HOURS NEEDED FOR SHORTNESS OF BREATH OR WHEEZING Rx Instructions: INHALE 2 PUFFS BY MOUTH EVERY 6 HOURS NEEDED FOR SHORTNESS OF BREATH OR WHEEZING cholecalciferol (vitamin D3) 25 mcg (1,000 unit) tablet See Rx Instructions .ROUTE .COMPLEX Qty: 30 4RF Dose Instruction: TAKE ONE TABLET BY MOUTH ONCE A DAY Rx Instructions: TAKE ONE TABLET BY MOUTH ONCE A DAY ergocalciferol (vitamin D2) 1,250 mcg (50,000 unit) capsule See Rx Instructions .ROUTE .COMPLEX Qty: 4 0RF Dose Instruction: TAKE ONE CAPSULE BY MOUTH EVERY WEEK FOR SUPPLEMENT Rx Instructions: TAKE ONE CAPSULE BY MOUTH EVERY WEEK FOR SUPPLEMENT Eucerin Advanced [employer] Hand Cream 1 applic topical QID Qty: 78 2RF Referrals Follow up/Referrals: Elaine Scott PA [Primary Care Provider] - See instructions Activity Restrictions/Add. Instructions Additional Instructions/Restrictions: Drink plenty of fluids. Take tylenol or ibuprofen for pain or fever. Take the medications as directed. Follow up with your regular doctor. GO TO THE ER FOR ANY WORSENING SYMPTOMS Don't start the oral steroids (prednisone) until tomorrow since you had the shot here Clinical Impressions Clinical Impression: COPD exacerbation Stand Alone Forms Stand Alone Forms: Work/School Release Instructions Patient Instructions: DI for Chronic Obstructive Pulmonary Disease, Prednisone, Ceftriaxone Injection, Dexamethasone Injection Print Language Print Language: [place] Discharge ED Provider: Alexis Appiah [facility] General Stated complaint: chest head congestion cough Mode of Arrival: Ambulatory Source of Information: Patient Limitations: No Limitations Time Seen by Provider: 07/28/24 09:31 Description of Symptoms (Recalled from Triage Doc. by RN): Reports drainage and cough since Monday. HEENT Symptoms (Recalled from RN notes): Yes Resp Symptoms (Recalled from RN notes): No Skin Symptoms (Recalled from RN notes): No MS Symptoms (Recalled from RN notes): No Functional Status (Recalled from RN notes): wnl Related Data Previous Rx's ?Medication ?Instructions ?Recorded albuterol sulfate 1.25 mg/3 mL 1.25 mg (3 mL) inhalation QID PRN 01/03/22 solution for nebulization shortness of breath or wheezing #90 mL emollient combination no.117 1 applic topical QID #78 grams 08/31/23 (Eucerin Advanced [employer] Hand topical cream) albuterol sulfate 90 mcg/actuation See Rx Instructions .Route 03/15/24 aerosol inhaler .COMPLEX #8.5 grams cholecalciferol (vitamin D3) 25 See Rx Instructions .Route 03/15/24 mcg (1,000 unit) tablet .COMPLEX #30 tabs aspirin 81 mg tablet,delayed 81 mg PO DAILY #90 tabs 04/24/24 release atorvastatin 80 mg tablet 80 mg PO DAILY #90 tabs 04/24/24 metoprolol succinate 25 mg 25 mg PO DAILY #90 tabs 04/24/24 tablet,extended release 24 hr glipizide 10 mg tablet See Rx Instructions .Route 06/25/24 .COMPLEX #90 tabs lisinopril 10 mg tablet 10 mg PO DAILY #90 tabs 06/25/24 loratadine 10 mg tablet See Rx Instructions .Route 06/25/24 .COMPLEX #90 tabs meloxicam 7.5 mg tablet See Rx Instructions .Route 06/25/24 .COMPLEX #90 tabs montelukast 10 mg tablet See Rx Instructions .Route 06/25/24 .COMPLEX #90 tabs ondansetron 8 mg disintegrating 8 mg PO Q8H PRN nausea and 06/25/24 tablet vomiting 30 days #30 tabs ropinirole 1 mg tablet See Rx Instructions .Route 06/25/24 .COMPLEX #90 tabs semaglutide 2 mg/dose (8 mg/3 mL) 2 mg (0.75 mL) SQ WEEKLY #3 mL 06/25/24 subcutaneous pen injector ergocalciferol (vitamin D2) 1,250 See Rx Instructions .Route 07/16/24 mcg (50,000 unit) capsule .COMPLEX #4 caps amoxicillin 875 mg-potassium 1 tab PO Q12H #20 tabs 07/28/24 clavulanate 125 mg tablet benzonatate 100 mg capsule 100 mg PO TIDP PRN Cough #30 caps 07/28/24 prednisone 10 mg tablet 10 mg PO DIRECTED 9 days #21 07/28/24 tabs Allergies Allergy/AdvReac Type Severity Reaction Status Date / Time No Known Allergies Allergy Verified 06/25/24 11:01 Worker's Comp Is this a Worker's Comp case?: No [facility] Disclaimer: The information contained in this section may have been updated after the patient was seen, as this information can be updated by other users. Medical History Sinus tachycardia RVH (right ventricular hypertrophy) COPD (chronic obstructive pulmonary disease) Diabetes mellitus Vitamin D deficiency Hypertension Social History Smoking Status: Current every day smoker tobacco type: cigarettes packs per day: 1 alcohol intake: current alcohol intake frequency: a few times a month substance use type: denies use current occupational status: employed Travel in the last 8 weeks: Inside the [place] household members: none housing: house current occupation: [employer] caffeine: Yes ROS Obtained: Yes All systems reviewed & no additional complaints except as documented Constitutional Constitutional: Reports poor appetite Eyes Eyes: Reports system reviewed and no additional complaints, except as documented ENT Ears, Nose, Mouth, and Throat: Reports as per HPI Cardiovascular Cardiovascular: Reports system reviewed and no additional complaints, except as documented and Denies chest pain Respiratory Respiratory: Denies shortness of breath, Reports chest congestion, Reports cough, Denies stridor and Reports wheezing Gastrointestinal Gastrointestingal: Reports system reviewed and no additional complaints, except as documented; Denies abdominal pain, diarrhea or vomiting Musculoskeletal Musculoskeletal: Reports system reviewed and no additional complaints, except as documented and Denies arthralgias Integumentary/Breasts Skin/Breast: Reports system reviewed and no additional complaints, except as documented and Denies rash Neurologic Neurologic: Denies paresthesias Allergic/Immunologic Allergic/Immunologic: Reports wheezing Physical Exam General General appearance: alert and in no apparent distress Head Head exam: atraumatic, normocephalic and normal inspection Eye Eye exam: Present normal appearance, PERRL and EOMI ENT ENT exam: Present normal exam, normal oropharynx, mucous membranes moist, TM's normal bilaterally and normal external ear exam Neck Neck exam: Present normal inspection, full ROM and trachea midline; Absent meningismus or lymphadenopathy Chest Chest inspection: Present normal inspection and symmetric chest wall rise; Absent tenderness Respiratory Respiratory exam: Present normal lung sounds bilaterally; Absent respiratory distress Cardiovascular Cardiovascular exam: Present regular rate and normal rhythm; Absent JVD Abdominal Exam Abdominal exam: Present soft and normal bowel sounds; Absent distention, tenderness or guarding Extremities Exam Extremities exam: Present normal inspection, full ROM and normal capillary refill; Absent calf tenderness Back Exam Back exam: Present normal inspection; Absent tenderness Neurological Exam Neurological exam: Present alert and oriented X3 Psychiatric Psychiatric exam: Present normal affect and normal mood Skin Skin exam: Present warm, dry, intact and normal color Lymphatic Lymphatic Findings: no adenopathy Medical Decision Making Medical Records Medical records reviewed: No I reviewed the patient's medical records. Screening: Per USPSTF and CDC recommendations, given the prevalence of disease in our region, it is our hospital?s policy to screen for HIV and viral Hepatitis for all patients aged 18 and over and those with ongoing risk factors. Gael Inquiry Pt receiving controlled substance: No Vital Signs: 07/28/24 09:26 Temperature 98.2 F Temperature Source Oral Pulse Rate [Radial] 86 Respiratory Rate 16 Blood Pressure [Right Arm] 133/72 Blood Pressure Mean [Right Arm] 92 Blood Pressure Source [Right Arm] Automatic Cuff Blood Pressure Position [Right Arm] Sitting 02 Sat by Pulse Oximetry 94 L Oxygen Delivery Method Room Air
[2024-07-28] MEDS: cefTRIAXone 1GM VIAL 1 GM IM (10:07)
[2024-07-28] MEDS: DEXAMETHASONE 4MG/ML 1ML VIAL 8 MG IM (10:07)
[2024-07-28] MEDS: LIDOCAINE 1% 5ML PF VIAL IM (10:08)
[2024-07-28 10:47] VITALS: BP 133/72; PULSE 86; RESP 16; TEMP 36.8; O2SAT 94
== END 2024-07-28 10:48 | disposition home or self-care (01) ==
PROVIDERS: Emergency Provider Nurse Practitioner Family; PCP Physician Assistant
DX: J44.1 Chronic obstructive pulmonary disease with (acute) exacerbation (principal); R09.81 Nasal congestion; R05.9 Cough, unspecified; F17.210 Nicotine dependence, cigarettes, uncomplicated
CPT/HCPCS: 87635; 96372; 99212; 99214; G0463; J0696; J1100

== ENCOUNTER 2025-05-28 13:31 | Outpatient (CLI) | payer BC, SELFPAY ==
--- NOTE | 2025-05-28 13:33 | CT_ITS ---
FINAL REPORT CLINICAL HISTORY: SCREENING current smoker 1ppd x 20 years COMPARISON: 05/10/2022 FINDINGS: CT CHEST LOW DOSE SCREENING HISTORY: Screening exam for lung cancer. DOSE: CTDI vol: 2.90 mGy, DLP: 113.33 mGy*cm TECHNIQUE: Axial CT without IV contrast administration using low dose protocol. This study was performed with techniques to keep radiation doses as low as reasonably achievable, (ALARA). Individualized dose reduction techniques using automated exposure control or adjustment of mA and/or kV according to the patient's size were employed. No acute lung disease is present. There is a 3 mm subpleural nodule in the posterolateral left lower lobe on image 62 of series 3 which is stable. No new pulmonary lesions are seen suspicious for neoplasm. There are mild emphysematous changes. No pleural or pericardial effusion is seen. No adenopathy or mass lesion is present. There is a stable left adrenal nodule consistent with adenoma. IMPRESSION: Stable 3 mm subpleural left lower lobe nodule measuring 3 mm. LUNG RADS CATEGORY 2 RECOMMENDATION: 12 month LDCT follow up Reviewed, Interpreted and Dictated by Jet Garcia MD Transcribed by Jessika Kwok Authenticated and . [facility]
--- OUTSIDE RECORDS SUMMARY | 2025-05-28 13:34 | XMS_ITS | Continuity of Care Document ---
Author Organization [place] - [place] Address [address] [place] [address] Assessment No assessment recorded. Plan of Treatment Reminders Order Date Submit Date Provider Last Modified By Organization Details Last Modified Time Details Appointments FOLLOW UP 30 2024 10:00A M Elaine Scott PA-C Not available Not available Not available Lab HbA1c (hemoglob in A1c), blood 2024 025 [email or web address] [facility], [address] [facility], [place], [address], 05/19/2025 10:13:49 Referral None recorded. Procedures None recorded. Surgeries None recorded. Imaging LDCT, chest, for lung cancer screening - 1 ppd X 40 years 2024 025 [email or web address] [facility] [address], [place], [address], 05/26/2025 16:17:44 Medication Orders Breztri Aerospher e 160 mcg-9mcg- 4.8mcg/ac tuation HFA aerosol inhaler 2024 025 ERINN [place] [facility], [address] [facility] [address], [place], [id number], 05/19/2025 10:18:12 Patient TargetsNo targets recorded. Patient Instructions Encounter Date Encounter Id Patient Instructions Last Modified By Organization Details Last Modified Time 05/19/2025 [id number] learning about type 2 diabetes Not available 05/19/2025 10:13:49 type 2 diabetes: care instructions [email or web address] Not available 05/19/2025 10:13:49 chronic obstructive pulmonary disease (COPD): care instructions Not available 05/19/2025 10:13:50 learning about copd and how to prevent lung infections [email or web address] Not available 05/19/2025 10:13:49 Reason for Referral None Reported. Results Created Date Observation Date Name Description Value Unit Range Abnormal Flag Note LastModifiedBy Organization Detail LastModifiedTime 05/19/2005/19/2025 HbA1c (hemo globi n A1c), blood HbA1c 6.0 Not Available [facility] [address] [place] [address], [place], [address], 05/19/2025 09:49:11 Result Notes None recorded. Problems Name Problem SNOMED Code Status Onset Date Resolution Date Notes Provider Name and Address Organization Details Recorded Time Essential hypertension 30503266 Active 2023 EVLIA Braxton [address] [place] [address], [address] 8, [employer] 14:53:59 Allergic rhinitis 85979518 Active 2023 ELVIA Braxton [address] [place] [address], 359[address] 8, [employer] 14:53:55 Osteoarthritis 827499611 Active 2023 ELVIA Braxton [address] [place] [address], 49[address] 8, [employer] 4 14:54:02 Restless legs 61877673 Active 2023 ELVIA Braxton [address] [place] [address], 406[address]486 8, [employer] 4 14:54:05 Vitamin D deficiency 39652790 Active 2023 ELVIA Braxton [address] [place] [address], 227[address] 8, [employer] 11/14/202 4 14:54:12 Diabetes mellitus 55601420 Active 2023 ELVIA Braxton [address] [place] [address], 820[address] 8, [employer] 4 14:54:18 Acute left otitis media 951629992 Active 2024 ELVIA Braxton [address] [place] [address], 827[address]-175 8, [employer] 5 13:55:10 Type 2 diabetes mellitus without complication 464605869 Active 2024 ELVIA Braxton [address] [place] [address], 36[address] 8, [employer] 5 14:44:08 Acute sinusitis 49254511 Active 2024 ELVIA Braxton [address] [place] [address], 15[address] 8, [employer] 5 08:28:54 Cigarette smoker 38412953 Active 2024 ELVIA Braxton [address] [place] [address], 579[address] 8, [employer] 5 10:11:36 Simple chronic bronchitis 73359958 Active 2024 ELVIA Braxton [address] [place] [address], 76[address]185 8, [employer] 5 10:11:45 Chronic obstructive pulmonary disease 49849556 Active 2024 ELVIA Braxton [address] [place] [address], 24267-153 8, [employer] 5 10:12:08 Sebaceous cyst of skin 559240343 Active 2024 ELVIA Braxton [address] [place] [address], 78468-874 8, [employer] 5 12:40:55 Problem Notes None recorded. Procedures Surgical History Date Name Laterality Status Provider Name and Address Organization Details Recorded Time Diabetic Foot Screen completed ELVIA Braxton [address] [place] [address], [place], [address], [facility] [employer] 2024 14:43:33 Imaging Results None recorded. Procedure Notes None recorded. Medical Equipment None Reported. Allergies No known drug allergies Medications Name Sig Start Date Stop Date Status Note LastModified by Organization Details LastModified Time atorvastati n 40 mg tablet 09/19 completed Not Available Not Available Not Available atorvastati n 80 mg tablet TAKE ONE TABLET BY MOUTH ONCE A DAY active Not Available Not Available No t Available prednisone 10 mg tablet 09/19 completed Not Available Not Available Not Available ropinirole 1 mg tablet TAKE ONE TABLET BY MOUTH AT BEDTIME active Not Available Not Available No t Available azithromyci n 250 mg tablet TAKE 2 TABLETS BY MOUTH ON DAY 1, THEN TAKE 1 TABLET DAILY ON DAYS 2 THROUGH 5 05/19 completed Not Available Not Available Not Available lisinopril 20 mg tablet 09/19 completed Not Available Not Available Not Available glipizide 10 mg tablet 11/19 completed Not Available Not Available Not Available prednisone 20 mg tablet TAKE 1 TABLET BY MOUTH 2 TIMES A DAY FOR 5 DAYS 05/19 completed Not Available Not Available Not Available aspirin 81 mg tablet,luis a yed release TAKE ONE TABLET BY MOUTH ONCE A DAY active Not Available Not Available No t Available ondansetron 8 mg disintegrat ing tablet active Not Available Not Available N ot Available Depo-Medrol 80 mg/mL suspension for injection Take 1 mL by injection route. 05/19 completed Not Available Not Available Not Available meloxicam 7.5 mg tablet TAKE ONE TABLET BY MOUTH ONCE A DAY active Not Available Not Available No t Available ceftriaxone 1 gram solution for injection Take 1 g by injection route. 05/19 completed Not Available Not Available Not Available amoxicillin 875 mg tablet Take 1 tablet every 12 hours by oral route as directed for 10 days. 02/17 completed Not Available Not Available Not Available benzonatate 100 mg capsule 09/19 completed Not Available Not Available Not Available cephalexin 500 mg capsule 09/19 completed Not Available Not Available Not Available lisinopril 10 mg tablet 09/19 completed Not Available Not Available Not Available montelukast 10 mg tablet TAKE ONE TABLET BY MOUTH ONCE A DAY active Not Available Not Available No t Available metoprolol succinate ER 25 mg tablet,exte nded release 24 hr TAKE ONE TABLET BY MOUTH ONCE A DAY FOR HIGH BLOOD PRESSURE active Not Available Not Available No t Available ergocalcife rol (vitamin D2) 1,250 mcg (50,000 unit) capsule TAKE ONE CAPSULE BY MOUTH EVERY WEEK FOR SUPPLEMEN T 11/19 completed Not Available Not Available Not Available albuterol sulfate HFA 90 mcg/actuati on aerosol inhaler INHALE 2 PUFFS BY MOUTH EVERY 6 HOURS NEEDED FOR SHORTNESS OF BREATH OR wheezing active Not Available Not Available No t Available metformin ER 500 mg tablet,exte nded release 24 hr 09/19 completed Not Available Not Available Not Available loratadine 10 mg tablet TAKE ONE TABLET BY MOUTH ONCE A DAY active Not Available Not Available No t Available amoxicillin 875 mg-potassiu m clavulanate 125 mg tablet 09/19 completed Not Available Not Available Not Available cholecalcif myriam (vitamin D3) 25 mcg (1,000 unit) tablet 11/19 completed Not Available Not Available Not Available Breztri Aerosphere 160 mcg-9mcg-4. 8mcg/actuat ion HFA aerosol inhaler Inhale 2 puffs twice a day by inhalatio n route for 30 days. 2024 active Not Available Not Available Not Avai lable Ozempic 1 mg/dose (4 mg/3 mL) subcutaneou s pen injector 09/19 completed Not Available Not Available Not Available Ozempic 2 mg/dose (8 mg/3 mL) subcutaneou s pen injector INJECT 2 MG SUBCUTANE OUSLY ONCE WEEKLY FOR DIABETES 2024 active Not Available Not Available Not Avai lable Ozempic 0.25 mg or 0.5 mg (2 mg/3 mL) subcutaneou s pen injector 09/19 completed Not Available Not Available Not Available Vitals Date Recorded Body height Body mass index (BMI) Body weight Oxygen saturation Oxygen saturation in Arterial blood by Pulse oximetry Heart rate Body temperature Systolic And Diastolic Provider Name and Address Organization Details Last Updated DateTime 172.72 cm 33.9 kg/m2 765056. 5 g 95 % 95 % 76 /min 98.1 [degF] 105/70 mm[Hg] Dinora Robbie [employer] 09:51:42 Social History Question Answer Notes LastModified by Organizat ion Details LastModified Time Tobacco Smoking Status Current Every Day Smoker Ada garces, [employer] 09/19/2024 13:26:47 Do You Have An Advance Directive? No Information not available 09/19/2024 Is Your Home Air Conditioned? Yes Information not available 09/19/2024 Do You Wear A Helmet When Biking? No Information not available 09/19/2024 Are You Blind Or Do You Have Difficulty Seeing? No Information not available 09/19/2024 What Is Your Level Of Caffeine Consumption? Occasional Information not available 09/19/2024 What Type Of Cupola Tender Do You Use? None Information not available 09/19/2024 Have You Been To An Area Known To Be High Risk For COVID-19? No Information not available 09/19/2024 Are You Deaf Or Do You Have Serious Difficulty Hearing? No Information not available 09/19/2024 What Type Of Diet Are You Following? REGULAR Information not available 09/19/2024 What Is The Highest Grade Or Level Of School You Have Completed Or The Highest Degree You Have Received? [id number] Information not available 09/19/2024 Have There Been Any Changes To Your Family Or Social Situation? No Information no t available 09/19/2024 Which Of Your Hands Is Dominant? Right Information not available 09/19/2024 What Is Your Home Situation? Other Information not available 09/19/2024 Do You Have A Medical Power Of Candy Separator Hard? No Information not available 09/19/2024 What Was The Date Of Your Most Recent Tobacco Screening? 05/19/2025 [email or web address] Information not available 05/19/2025 Are There Any Occupational Health Risks Where You Work? No Information not available 09/19/2024 What Is Your Current Pack Years? 10packyears Information not available 09/19/2024 Do You Have Any Pets? No Information not available 09/19/2024 Do You Use Protection During Sex? Always Information not available 09/19/2024 Do You Use Protection Against STDs? Always Information not available 09/19/2024 What Is Your Relationship Status? Single Information not available 09/19/2024 Have You Repeated Any Grades? No Information not available 09/19/2024 Do You Use Your Seat Belt Or Car Seat Routinely? Yes Information not available 09/19/2024 Are You Sexually Active? Yes Information not available 09/19/2024 Do You Have Smoke And Carbon Monoxide Detectors In Your Home? Yes Information not available 09/19/2024 At What Age Did You Start Smoking Tobacco? 19 Information not available 09/19/2024 Are You Passively Exposed To Smoke? Yes Information no t available 09/19/2024 Are There Any Smokers In Your House? Yes Information not available 09/19/2024 How Much Tobacco Do You Smoke? 1 PPD Information not available 09/19/2024 Do You Participate In Social Media? Yes Information not available 09/19/2024 Do You Use Sunscreen Routinely? No Information not available 09/19/2024 Has Tobacco Cessation Counseling Been Provided? Yes Information not available 09/19/2024 On What Date Was Tobacco Cessation Counseling Provided? 05/19/2025 [email or web address] Information not available 05/19/2025 Have You Recently Traveled Abroad? No Information not available 09/19/2024 Do You Have Difficulty Walking Or Climbing Stairs? No Information not available 09/19/2024 Are You Currently In School? No Information not available 09/19/2024 What Contraceptive Method Was Reported At Start Of This Visit? Male Condom Information not available 09/19/2024 Do You Have Any Dietary Restrictions? No Information not available 09/19/2024 Sex: Male Functional Status Question Answer Note LastModified by Organizat ion Details LastModified Time Do you use any illicit or recreational drugs? No Information not available 09/19/2024 Do you or have you ever used any other forms of tobacco or nicotine? No Information not available 09/19/2024 What is your level of alcohol consumption? Moderate Information not available 09/19/2024 Are you currently employed? Yes Information not available 09/19/2024 Do you have transportation difficulties? No Information not available 09/19/2024 Are you able to walk? YESWOREST Information not available 09/19/2024 Do you have difficulty doing errands alone? No Information not available 09/19/2024 Are you able to care for yourself? Yes Information not available 09/19/2024 Do you have difficulty dressing or bathing? No Information not available 09/19/2024 What is your exercise level? None Information not available 09/19/2024 Mental Status Question Answer Note LastModified by Organizat ion Details LastModified Time Do you feel stressed (tense, restless, nervous, or anxious, or unable to sleep at night)? [id number] Information not available 09/19/2024 Do you have difficulty concentrating, remembering or making decisions? No Information no t available 09/19/2024 Are you or have you been involved with bullying? No Information not available 09/19/2024 Family History Relationship Description Onset Age of this Age Resolved Age Notes LastModified by Organization Details LastModified Time Maternal Aunt Malignant neoplasm of brain Not available 2023 13:31:31 Maternal Aunt Malignant neoplasm of lung Not available 2023 13:31:48 Mother Diabetes mellitus Not available 2023 13:31:39 Medical History Condition Response Coronary Artery Disease N Other Y Gout N Kidney Stones N Blood Diseases N Hyperthyroidism N Blood Transfusion N Breast Cancer N Emergency room visit since last appointm ent. N COPD Y Depression N Dermatologic Disorders N Hypothyroidism N Lung Disease N Developmental or Behavioral Disorders N Defects or Inherited Disease N Breast Problem N Difficulty Swallowing N Anesthesia Complications N History of STI N Meniere's disease N Anxiety Disorder N Muscle, Joint, or Bone Problems N Autoimmune disease N Vision or Eye Problems N Arthritis Y Polyps N Infertility N Mental Disorder N Congenital Anomalies N Acid Reflux (GERD) Y Cancer N Stroke N Neurologic/Epilepsy N Endometriosis N Bladder or Kidney Problems N High Cholesterol Y Liver Disease N Organ Transplant N Psychiatric/Mental Health Condition N Fibromyalgia N Dialysis N Schizophrenia N Headaches N Kidney Disease N Allergies/Hayfever Y Heart Problems N Ear or Hearing Problems N Hospitalizations N Learning Disorder N Artificial Joints N Thyroid Problems N GI Problems N Acne N ADD/ADHD N Eating Disorder N Anemia N Constipation N Mental Illness N Ovarian Cancer N Diabetes Y Bedwetting N Hepatitis/Liver Disease N Tuberculosis N Eczema N Diverticulitis N Abuse/Domestic Violence N Asthma N Trauma/Violence N Substance Abuse N Reflux/GERD N Depression/ depression N Hepatitis N Heart Disease N Pulmonary Embolism N Tourette Syndrome N Chronic Ear Infections N Pre-Eclampsia N Hypertension Y Chicken Pox N Autism Spectrum Disorder (ASD) N Osteoporosis N Thrombophilias N Immunizations Vaccine Type Date Status Note Provider Nam e and Address Organization Details Recorded Time Tdap 0 completed Ada Vice null, [employer] 2024 13:39:06 Td (adult), 2 Lf tetanus toxoid, preservative free, adsorbed 7 completed Ada Vice null, [employer] 2024 13:39:06 Tdap 5 completed Not Available [facility] 05/19/2025 09:44:00 Past Encounters Encounter ID Performer Location Encounter Start Date Encounter Closed Date Diagnosis/Indication Diagnosis SNOMED-CT Code Diagnosis ICD10 Code Diagnosis Note [id number] ELVIA Braxton [facility] [address] [place] [address] 05/19/2025 09:36:40 05/19/2025 10:11:59 Type 2 diabetes mellitus 29389731 E11.9 Z79.4 Continue current meds Cigarette smoker 8295867 7 F17.210 Chronic ob structive pulmonary disease 77849009 J44.9 Sebaceous cyst of skin 917879676 L72.3 Monitor for now Health Concerns Section Related Observation LastModified by Organization Detai ls LastModified Time None Recorded Concern Status LastModified by Organization Details LastModified Time None Recorded Payers Encounter Date Sequence Insurance Name Policy Number Policy Young Covered Member ID Young Member ID Guarantor Name 05/19/2025 1 [employer] [id number] 1 Francisca Jenkins [id number] Francisca Jenkins Notes Date Note Type Note Provider Name and Address Organization Details Recorded Time 05/19/2025 text/html Patient presents for followupHIstory of diabetes. Doing well. Has lost a lot of weight, eating better. Is playng softball.History of COPD, asthma/allergies. This time of year is hard on him due to mowing.Had a bump on his back - his friend squeezed smelly drainage out of it and it is better nowHas smoked approximately 1 ppd for as long as he can remember ELVIA Braxton [address] [place] [address], [phone], [facility] [employer] 05/19/2025 12:42:28
--- OUTSIDE RECORDS SUMMARY | 2025-05-28 13:34 | XMS_ITS | Data Portability ---
[facility] Organization [facility] Address [address] [place] [address] Assessment No assessment recorded. Plan of Treatment Reminders Order Date Submit Date Provider Last Modified By Organization Details Last Modified Time Details Appointments FOLLOW UP 30 2024 10:00A Day Scott PA-C Not available Not available Not available Lab HbA1c (hemoglob in A1c), blood [address], [address] [place], [address], 05/19/2025 10:13:49 HbA1c (hemoglob in A1c), blood [address], [address] [place], [address], 02/17/2025 08:53:41 noninvasi ve colorecta l cancer DNA + occult blood screening , QL, stool 2024 025 [email or web address] [facility] (Cologuard Orders Only), [address], [address], [place], [address], 05/27/2025 09:32:43 lipid panel, serum 2023 024 ERINN [facility] ([facility]), [address] [facility], [place], [address], 09/20/2024 10:10:40 CMP, serum or plasma [facility]23 [facility] [address] [place], [address], 09/20/2024 10:10:39 CBC w/ auto diff 2023 [facility] [address] [place], [address], 09/20/2024 10:10:39 TSH, ultra-sen sitive, serum 2023 ERINN [facility] ([facility]), [address] [facility], [place], [address], 09/20/2024 10:10:42 vitamin D, 25-hydrox y, total, serum 2023 [facility] [address] [place], [address], 09/20/2024 10:10:43 HbA1c (hemoglob in A1c), blood 2023 [facility] [address] [facility], [place], [address], 09/20/2024 10:10:41 PSA, total, serum or plasma 2023 [facility] [address] [place], [address], 09/20/2024 10:10:44 HIV 1 + 2, meaningfu l use set 2023 [facility] [address] [place], [address], 09/20/2024 10:10:44 Hepatitis C IgG Ab, qual, serum 2023 [facility] [address] [place], [address], 09/20/2024 10:10:41 Referral None recorded. Procedures None recorded. Surgeries None recorded. Imaging LDCT, chest, for lung cancer screening - 1 ppd X 40 years [address] ([facility]), [address], [place], [address], 05/26/2025 16:17:44 Medication Orders Breztri Aerospher e 160 mcg-9mcg- 4.8mcg/ac tuation HFA aerosol inhaler 2024 025 [facility], [address] [place] [address], [place], [id number], 05/19/2025 10:18:12 Zithromax Z-Mark 250 mg tablet [address] [facility] [address] [facility], [address] [place] [address], [place], [id number], 05/19/2025 09:47:30 prednison e 20 mg tablet [address] [facility], [address] [place] [address], [place], [id number], 05/19/2025 09:47:47 ceftriaxo ne 1 gram solution for injection [address] [facility], [address] [place] [address] [place], [id number], 05/19/2025 09:47:34 Depo-Medr ol 80 mg/mL suspensio n for injection [address] [facility], [address] [place] [address] [place], [id number], 05/19/2025 09:47:38 loratadin e 10 mg tablet 2024 025 [facility], [address] [place] [address], [place], [id number], 2024 14:04:[address] 10 mg tablet 2024 025 [facility], [address] [place] [address], [place], [id number], 2024 14:04:23 meloxicam 7.5 mg tablet 2024 025 [facility], [address] [place] [address], [place], [id number], 2024 14:04:18 ropinirol e 1 mg tablet 2024 025 [facility], [address] [place] [address], [place], [id number], 2024 14:04:07 amoxicill in 875 mg tablet 2024 025 [facility], [address] [place] [address], [place], [id number], 02/17/2025 09:22:14 prednison e 20 mg tablet [email or web address] [place] [address] Pharmacy, [address] [place] [address], [place], [id number], 05/19/2025 09:47:47 Ozempic 2 mg/dose (8 mg/3 mL) subcutane ous pen injector 2024 025 [facility], [address] [place] [address], [place], [id number], 2024 14:04:10 metoprolo l succinate ER 25 mg tablet,ex tended release 24 hr 2024 025 ERINN [facility], [address] [address] [place], [id number], 2024 14:04:19 Ozempic 2 mg/dose (8 mg/3 mL) subcutane ous pen injector 2023 024 ERINN [facility], [address] [address] [place], [id number], 09/19/2024 14:58:36 Patient TargetsNo targets recorded. Patient Instructions Encounter Date Encounter Id Patient Instructions Last Modified By Organization Details Last Modified Time 09/19/2024 [id number] allergies: care instructions [email or web address] Not available 09/19/2024 14:57:19 arthritis: care instructions [email or web address] Not available 09/19/2024 14:57:19 restless legs syndrome: care instructions [email or web address] Not available 09/19/2024 14:57:19 high blood pressure: care instructions [email or web address] Not available 09/19/2024 14:57:19 learning about high blood pressure Not available 09/19/2024 14:57:19 type 2 diabetes: care instructions [email or web address] Not available 09/19/2024 13:59:22 body mass index: care instructions [email or web address] Not available 09/19/2024 14:57:19 learning about healthy weight [email or web address] Not available 09/19/2024 14:57:18 2024 [id number] allergies: care instructions [email or web address] Not available 2024 14:04:03 arthritis: care instructions [email or web address] Not available 2024 14:04:03 restless legs syndrome: care instructions [id number] Not available 2024 14:04:03 high blood pressure: care instructions [email or web address] Not available 2024 14:04:03 learning about high blood pressure [email or web address] Not available 2024 14:04:03 02/17/2025 [id number] Acute Sinusitis: Care Instructions [email or web address] Not available 02/17/2025 09:10:45 05/19/2025 [id number] learning about type 2 diabetes Not available 05/19/2025 10:13:49 type 2 diabetes: care instructions Not available 05/19/2025 10:13:49 chronic obstructive pulmonary disease (COPD): care instructions [id number] Not available 05/19/2025 10:13:50 learning about copd and how to prevent lung infections [email or web address] Not available 05/19/2025 10:13:49 Reason for Referral None Reported. Results Created Date Observation Date Name Description Value Unit Range Abnormal Flag Note LastModifiedBy Organization Detail LastModifiedTime 09/19/20 24 09/20/2024 CBC WITH DIFFE RENTI AL/PL ATELE T WBC 8.7 x10e3 /uL 3.4-10 .8 normal Not Available [facility] ([facility]) [address] [place], [address], 09/20/2024 10:10:38 09/19/20 24 09/20/2024 CBC WITH DIFFE RENTI AL/PL ATELE T RBC 5.38 x10e6 /uL 4.14-5 .80 normal Not Available [facility] ([facility]) [address] [place], [address], 09/20/2024 10:10:38 09/19/20 24 09/20/2024 CBC WITH DIFFE RENTI AL/PL ATELE T hemoglobin 17.0 g/dL 13.0-1 7.7 normal Not Available [facility] ([facility]) [address] [place], [address], 09/20/2024 10:10:38 09/19/20 24 09/20/2024 CBC WITH DIFFE RENTI AL/PL ATELE T hematocrit 49.8 % 37.5-5 1.0 normal Not Available [facility] ([facility]) [address] [place], [address], 09/20/2024 10:10:38 09/19/20 24 09/20/2024 CBC WITH DIFFE RENTI AL/PL ATELE T MCV 93 fL 79-97 normal Not Available [facility] ([facility]) [address] [facility], [place], [address], 09/20/2024 10:10:38 09/19/20 24 09/20/2024 CBC WITH DIFFE RENTI AL/PL ATELE T MCH 31.6 pg 26.6-3 3.0 normal Not Available [facility] ([facility]) [address] [facility], [place], [address], 09/20/2024 10:10:38 09/19/20 24 09/20/2024 CBC WITH DIFFE RENTI AL/PL ATELE T MCHC 34.1 g/dL 31.5-3 5.7 normal Not Available [facility] ([facility]) [address] [facility], [place], [address], 09/20/2024 10:10:38 09/19/20 24 09/20/2024 CBC WITH DIFFE RENTI AL/PL ATELE T RDW 13.0 % 11.6-1 5.4 Not Available [facility] ([facility]) [address] [place], [address], 09/20/2024 10:10:38 09/19/20 24 09/20/2024 CBC WITH DIFFE RENTI AL/PL ATELE T platelets 199 x10e3 /uL 150-45 0 normal Not Available [facility] ([facility]) [address] [place], [address], 09/20/2024 10:10:38 09/19/20 24 09/20/2024 CBC WITH DIFFE RENTI AL/PL ATELE T neutrophils 57 % not estab. normal Not Available [facility] ([facility]) [address] [place], [address], 09/20/2024 10:10:38 09/19/20 24 09/20/2024 CBC WITH DIFFE RENTI AL/PL ATELE T lymphs 31 % not estab. normal Not Available [facility] ([facility]) [address] [facility] [place], [address], 09/20/2024 10:10:38 09/19/20 24 09/20/2024 CBC WITH DIFFE RENTI AL/PL ATELE T monocytes 9 % not estab. normal Not Available [facility] ([facility]) [address] [place], [address], 09/20/2024 10:10:38 09/19/20 24 09/20/2024 CBC WITH DIFFE RENTI AL/PL ATELE T eos 2 % not estab. normal Not Available [facility] ([facility]) [address] [place], [address], 09/20/2024 10:10:38 09/19/20 24 09/20/2024 CBC WITH DIFFE RENTI AL/PL ATELE T basos 1 % not estab. normal Not Available [facility] ([facility]) [address] [place], [address], 09/20/2024 10:10:38 09/19/20 24 09/20/2024 CBC WITH DIFFE RENTI AL/PL ATELE T immature cells RETIREMENT SPECIALIST Not Available [facility] ([facility]) [address] [place], [address], 09/20/2024 10:10:38 09/19/20 24 09/20/2024 CBC WITH DIFFE RENTI AL/PL ATELE T neutrophils (absolute) 5.0 x10e3 /uL 1.4-7. 0 normal Not Available [facility] ([facility]) [address] [place], [address], 09/20/2024 10:10:38 09/19/20 24 09/20/2024 CBC WITH DIFFE RENTI AL/PL ATELE T lymphs (absolute) 2.7 x10e3 /uL 0.7-3. 1 normal Not Available [facility] ([facility]) [address] [place], [address], 09/20/2024 10:10:38 09/19/20 24 09/20/2024 CBC WITH DIFFE RENTI AL/PL ATELE T monocytes(ab solute) 0.8 x10e3 /uL 0.1-0. 9 normal Not Available [facility] ([facility]) [address] [facility], [place], [address], 09/20/2024 10:10:38 09/19/20 24 09/20/2024 CBC WITH DIFFE RENTI AL/PL ATELE T eos (absolute) 0.2 x10e3 /uL 0.0-0. 4 normal Not Available [facility] ([facility]) [address] [place], [address], 09/20/2024 10:10:38 09/19/20 24 09/20/2024 CBC WITH DIFFE RENTI AL/PL ATELE T baso (absolute) 0.1 x10e3 /uL 0.0-0. 2 normal Not Available [facility] ([facility]) [address] [facility], [place], [address], 09/20/2024 10:10:38 09/19/20 24 09/20/2024 CBC WITH DIFFE RENTI AL/PL ATELE T immature granulocytes 0 % not estab. Not Available [facility] ([facility]) [address] [place], [address], 09/20/2024 10:10:38 09/19/20 24 09/20/2024 CBC WITH DIFFE RENTI AL/PL ATELE T immature grans (abs) 0.0 x10e3 /uL 0.0-0. 1 Not Available [facility] ([facility]) [address] [place], [address], 09/20/2024 10:10:38 09/19/20 24 09/20/2024 CBC WITH DIFFE RENTI AL/PL ATELE T NRBC RETIREMENT SPECIALIST Not Available [facility] ([facility]) [address] [place], [address], 09/20/2024 10:10:38 09/19/20 24 09/20/2024 CBC WITH DIFFE RENTI AL/PL PEBBLESLE T hematology comments: RETIREMENT SPECIALIST Not Available [facility] ([facility]) [address] [facility], [place], [address], 09/20/2024 10:10:38 09/19/20 24 09/20/2024 COMP. METAB OLIC PANEL (14) glucose 62 mg/dL 70-99 below low normal Not Available [facility] ([facility]) [address] [facility], [place], [address], 09/20/2024 10:10:39 09/19/20 24 09/20/2024 COMP. METAB OLIC PANEL (14) BUN 11 mg/dL 6-24 normal Not Available [facility] ([facility]) [address] [facility], [place], [address], 09/20/2024 10:10:39 09/19/20 24 09/20/2024 COMP. METAB OLIC PANEL (14) creatinine 0.71 mg/dL 0.76-1 .27 below low normal Not Available [facility] ([facility]) [address] [facility], [place], [address], 09/20/2024 10:10:39 09/19/20 24 09/20/2024 COMP. METAB OLIC PANEL (14) eGFR 108 mL/mi n/1.7 3 >59 normal Not Available [facility] ([facility]) [address] [facility], [place], [address], 09/20/2024 10:10:39 09/19/20 24 09/20/2024 COMP. METAB OLIC PANEL (14) BUN/creatini ne ratio 15 9-20 normal Not Available [facility] ([facility]) [address] [facility], [place], [address], 09/20/2024 10:10:39 09/19/20 24 09/20/2024 COMP. METAB OLIC PANEL (14) sodium 139 mmol/ L 134-14 4 normal Not Available [facility] ([facility]) [address] [facility] [place], [address], 09/20/2024 10:10:39 09/19/20 24 09/20/2024 COMP. METAB OLIC PANEL (14) potassium 4.2 mmol/ L 3.5-5. 2 normal Not Available [facility] ([facility]) [address] [facility] [place], [address], 09/20/2024 10:10:39 09/19/20 24 09/20/2024 COMP. METAB OLIC PANEL (14) chloride 100 mmol/ L 96-106 normal Not Available [facility] ([facility]) [address] [facility] [place], [address], 09/20/2024 10:10:39 09/19/20 24 09/20/2024 COMP. METAB OLIC PANEL (14) carbon dioxide, total 24 mmol/ L 20-29 normal Not Available [facility] ([facility]) [address] [facility] [place], [address], 09/20/2024 10:10:39 09/19/20 24 09/20/2024 COMP. METAB OLIC PANEL (14) calcium 9.5 mg/dL 8.7-10 .2 normal Not Available [facility] ([facility]) [address] [facility] [place], [address], 09/20/2024 10:10:39 09/19/20 24 09/20/2024 COMP. METAB OLIC PANEL (14) protein, total 6.8 g/dL 6.0-8. 5 normal Not Available [facility] ([facility]) [address] [facility] [place], [address], 09/20/2024 10:10:39 09/19/20 24 09/20/2024 COMP. METAB OLIC PANEL (14) albumin 4.3 g/dL 3.8-4. 9 normal Not Available [facility] ([facility]) [address] [place], [address], 09/20/2024 10:10:39 09/19/20 24 09/20/2024 COMP. METAB OLIC PANEL (14) globulin, total 2.5 g/dL 1.5-4. 5 Not Available [facility] ([facility]) [address] [place], [address], 09/20/2024 10:10:39 09/19/20 24 09/20/2024 COMP. METAB OLIC PANEL (14) bilirubin, total 0.4 mg/dL 0.0-1. 2 normal Not Available [facility] ([facility]) [address] [place], [address], 09/20/2024 10:10:39 09/19/20 24 09/20/2024 COMP. METAB OLIC PANEL (14) alkaline phosphatase 83 IU/L 44-121 normal Not Available [facility] ([facility]) [address] [place], [address], 09/20/2024 10:10:39 09/19/20 24 09/20/2024 COMP. METAB OLIC PANEL (14) AST (SGOT) 24 IU/L 0-40 normal Not Available [facility] ([facility]) [address] [place], [address], 09/20/2024 10:10:39 09/19/20 24 09/20/2024 COMP. METAB OLIC PANEL (14) ALT (SGPT) 22 IU/L 0-44 normal Not Available [facility] ([facility]) [address] [place], [address], 09/20/2024 10:10:39 09/19/20 24 09/20/2024 LIPID PANEL cholesterol, total 134 mg/dL 100-19 9 normal Not Available [facility] ([facility]) [address] [facility], [place], [address], 09/20/2024 10:10:40 09/19/20 24 09/20/2024 LIPID PANEL triglyceride s 84 mg/dL 0-149 normal Not Available [facility] ([facility]) [address] [facility], [place], [address], 09/20/2024 10:10:40 09/19/20 24 09/20/2024 LIPID PANEL HDL cholesterol 37 mg/dL >39 below low normal Not Available [facility] ([facility]) [address] [place], [address], 09/20/2024 10:10:40 09/19/20 24 09/20/2024 LIPID PANEL VLDL cholesterol onofre 16 mg/dL 5-40 Not Available [facility] ([facility]) [address] [place], [address], 09/20/2024 10:10:40 09/19/20 24 09/20/2024 LIPID PANEL LDL chol calc ([facility]) 81 mg/dL 0-99 Not Available [facility]) [address] [facility], [place], [address], 09/20/2024 10:10:40 09/19/20 24 09/20/2024 LIPID PANEL LDL calc comment: RETIREMENT SPECIALIST Not Available [facility] ([facility]) [address] [place], [address], 09/20/2024 10:10:40 09/19/20 24 09/20/2024 HCV ANTIB BRANDON CASCA DE(PC R/GEN O) HCV Ab NON REACTI VE non reacti ve Not Available [facility] ([facility]) [address] [place], [address], 09/20/2024 10:10:41 09/19/20 24 09/20/2024 HCV ANTIB BRANDON CASCA DE(PC R/GEN O) interpretati on: COMMEN T Not infec leticia with HCV unles s early or acute infec tion is suspe cted (whic h may be delay ed in an immun ocomp romis ed indiv idual ), or other evide nce exist s to indic ate HCV infec tion. Not Available [facility] ([facility]) [address] [facility], [place], [address], 09/20/2024 10:10:41 09/19/20 24 09/20/2024 HEMOG LOBIN A1C hemoglobin A1C 5.7 % 4.8-5. 6 above high normal Predi abete s: 5.7 - 6.4 Diabe bradley: >6.4 Glyce akil contr ol for adult s with diabe bradley: <7.0 Not Available [facility] ([facility]) [address] [facility], [place], [address], 09/20/2024 10:10:41 09/19/20 24 09/20/2024 TSH TSH 1.040 uIU/m L 0.450- 4.500 normal Not Available [facility] ([facility]) [address] [facility], [place], [address], 09/20/2024 10:10:42 09/19/20 24 09/20/2024 VITAM IN D, 25-HY DROXY vitamin D, 25-hydroxy 85.2 NG/mL 30.0-1 00.0 Vitam in D defic iency has been defin ed by the Insti tute of Medic ine and an Endoc rine Socie ty pract ice guide line as a level of serum 25-OH vitam in D less than 20 ng/mL (1,2) . The Endoc rine Socie ty went on to furth er defin e vitam in D insuf ficie ncy as a level betwe en 21 and 29 ng/mL (2). 1. IOM (Inst itute of Medic ine). 2010. Dieta ry refer ence julián es for calci um and D. Julien lee [place]: The Natio nal [employer] . 2. Ayden riley [place], Marii riley [place], Libby off-F errar i [place], et al. Evalu ation , treat ment, and preve ntion of vitam in D defic iency : an Endoc rine Socie ty clini onofre pract ice guide line. JCEM. 2010; 96(7) :1911 -30. Not Available [facility] ([facility]) [address] [facility], [place], [address], 09/20/2024 10:10:43 09/19/2009/20/2024 HIV AB/P2 4 AG WITH REFLE X HIV Ab/P24 Ag screen NON REACTI VE non reacti ve HIV Negat abhi HIV-1 /HIV- 2 antib odies and HIV-1 p24 antig en were NOT detec leticia. There is no labor atory evide nce of HIV infec tion. Not Available [facility] ([facility]) [address] [facility], [place], [address], 09/20/2024 10:10:44 09/19/20 24 09/20/2024 PROST ATE SPECI FIC AG, SERUM prostate specific Ag 1.1 NG/mL 0.0-4. 0 normal Shukri ECLIA metho dolog y. Accor ding to the Ameri can Urolo gical Assoc iatio n, Serum PSA shoul d decre ase and remai n at undet ectab le level s after radic al prost atect leroy. The AUA defin es bioch emica l recur rence as an initi al PSA value 0.2 ng/mL or great er follo wed by a subse quent confi rmato ry PSA value 0.2 ng/mL or great er. Value s obtai cash with diffe rent assay metho ds or kits canno t be used inter powell eably . Resul ts canno t be inter prete d as absol [place] evide nce of the prese nce or absen ce of jaime reynaga disea se. Not Available [facility] ([facility]) [address] [facility], [place], [address], 09/20/2024 10:10:44 02/18/20 25 02/17/2025 HbA1c (hemo globi n A1c), blood HbA1c 5.9 % Not Available [facility] [address] [place], [address], 02/17/2025 08:09:34 05/19/20 25 05/19/2025 HbA1c (hemo globi n A1c), blood HbA1c 6.0 Not Available [facility] [address] [place], [address], 05/19/2025 09:49:11 Result Notes None recorded. Problems Name Problem SNOMED Code Status Onset Date Resolution Date Notes Provider Name and Address Organization Details Recorded Time Essential hypertension 66351802 Active 2023 ELVIA Braxton [address] [place] [address], [address] 8, [employer] 14:53:59 Allergic rhinitis 41331434 Active 2023 ELVIA Braxton [address] [place] [address], 070[address]642 8, [employer] 14:53:55 Osteoarthritis 212429276 Active 2023 ELVIA Braxton [address] [place] [address], 97[address] 8, [employer] 4 14:54:02 Restless legs 44741831 Active 2023 ELVIA Braxton [address] [place] [address], 49[address]557 8, [employer] 4 14:54:05 Vitamin D deficiency 33821312 Active 2023 ELVIA Braxton [address] [place] [address], 36[address] 8, [employer] 4 14:54:12 Diabetes mellitus 76187595 Active 2023 ELVIA Braxton [address] [place] [address], 97[address]268 8, [employer] 4 14:54:18 Acute left otitis media 690683025 Active 2024 ELVIA Braxton [address] [place] [address], 120[address] 8, [employer] 5 13:55:10 Type 2 diabetes mellitus without complication 927379648 Active 2024 ELVIA Braxton [address] [place] [address], 918[address]243 8, [employer] 5 14:44:08 Acute sinusitis 53572907 Active 2024 ELVIA Braxton [address] [place] [address], 018[address]168 8, [employer] 5 08:28:54 Cigarette smoker 25742091 Active 2024 ELVIA Braxton [address] [place] [address], 35566[address]496 8, [employer] 5 10:11:36 Simple chronic bronchitis 62197658 Active 2024 ELVIA Braxton [address] [place] [address], 993[address]961 8, [employer] 5 10:11:45 Chronic obstructive pulmonary disease 07313191 Active 2024 ELVIA Braxton [address] [place] [address], 89[address] 8, [employer] 5 10:12:08 Sebaceous cyst of skin 982784036 Active 2024 ELVIA Braxton [address] [place] [address], [address] 8, [employer] 5 12:40:55 Problem Notes None recorded. Procedures Surgical History Date Name Laterality Status Provider Name and Address Organization Details Recorded Time Diabetic Foot Screen completed LEVIA Braxton [address] [place] [address], [address], [employer] 2024 14:43:33 Imaging Results None recorded. [...] and Address Organization Details Last Updated DateTime 5 172.72 cm 37.4 kg/m2 281983. 44 g 96 % 96 % 76 /min 98.4 [degF] 107/73 mm[Hg] [facility] [employer] 5 13:43:19 Date Recorded Body height Body mass index (BMI) Body weight Heart rate Body temperature Oxygen saturation Oxygen saturation in Arterial blood by Pulse oximetry Systolic And Diastolic Provider Name and Address Organization Details Last Updated DateTime 5 172.72 cm 35.6 kg/m2 405708. 05 g 76 /min 97.6 [degF] 94 % 94 % 100/68 mm[Hg] [employer] 5 08:06:17 Date Recorded Body height Body mass index (BMI) Body weight Oxygen saturation Oxygen saturation in Arterial blood by Pulse oximetry Heart rate Body temperature Systolic And Diastolic Provider Name and Address Organization Details Last Updated DateTime 5 172.72 cm 33.9 kg/m2 464537. 5 g 95 % 95 % 76 /min 98.1 [degF] 105/70 mm[Hg] Dinora Avalos [employer] 5 09:51:42 Date Recorded Body weight Body mass index (BMI) Body height Heart rate Oxygen saturation Oxygen saturation in Arterial blood by Pulse oximetry Systolic And Diastolic Provider Name and Address Organization Details Last Updated DateTime 4 911613. 32 g 36.6 kg/m2 172.72 cm 75 /min 95 % 95 % 123/83 mm[Hg] [employer] 4 13:26:17 Social History Question Answer Notes LastModified by Organizat ion Details LastModified Time Tobacco Smoking Status 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 [id number] Information not available 09/19/2024 Have There Been Any Changes To Your Family Or Social Situation? No Information no t available 09/19/2024 Which Of Your Hands Is Dominant? Right Information not available 09/19/2024 What Is Your Home Situation? Other Information not available 09/19/2024 Do You Have A Medical Power Of Yeast Tender? No Information not available 09/19/2024 What Was The Date Of Your Most Recent Tobacco Screening? 05/19/2025 [email or web address] Information not available 05/19/2025 Are There Any [...] Date Was Tobacco Cessation Counseling Provided? 05/19/2025 [email or web address] Information not available 05/19/2025 Have You Recently [...] Functional Status Question Answer Note LastModified by [employer] ion Details LastModified Time Do you use [...] anxious, or unable to sleep at night)? [id number] Information not available 09/19/2024 Do you have [...] History Condition Response Coronary Artery Disease N Gout N Other Y Kidney Stones N Blood Diseases N Hyperthyroidism N Breast Cancer N Blood Transfusion N Emergency room visit since last appointm ent. N Lung Disease N COPD Y Depression N Hypothyroidism N Dermatologic Disorders N Defects or Inherited Disease N Developmental or Behavioral Disorders N Breast Problem N Difficulty Swallowing N Anesthesia Complications N History of STI N Anxiety Disorder N Meniere's disease N Autoimmune disease N Muscle, Joint, or Bone Problems N Vision or Eye Problems N Arthritis Y Infertility N Polyps N Mental Disorder N Congenital Anomalies N Acid Reflux (GERD) Y Cancer N Stroke N Neurologic/Epilepsy N Endometriosis N Bladder or Kidney Problems N High Cholesterol Y Liver Disease N Organ Transplant N Psychiatric/Mental Health Condition N Dialysis N Headaches N Fibromyalgia N Schizophrenia N Kidney Disease N Allergies/Hayfever Y Heart Problems N Ear or Hearing Problems N Hospitalizations N Learning Disorder N Artificial Joints N Thyroid Problems N GI Problems N Acne N ADD/ADHD N Eating Disorder N Anemia N Constipation N Mental Illness N Diabetes Y Ovarian Cancer N Bedwetting N Hepatitis/Liver Disease N Tuberculosis N Eczema N Abuse/Domestic Violence N Diverticulitis N Asthma N Trauma/Violence N Substance Abuse [...] Recorded Time Tdap 0 completed Ada Vice garces, [facility] [employer] 2024 13:39:06 Td (adult), 2 Lf tetanus toxoid, preservative free, adsorbed 7 completed [facility] [place] [place] [facility] [place] [employer] 2024 13:39:06 Tdap 5 completed Not Available [facility] 05/19/2025 09:44:00 Past Encounters Encounter ID Performer Location Encounter Start Date Encounter Closed Date Diagnosis/Indication Diagnosis SNOMED-CT Code Diagnosis ICD10 Code Diagnosis Note [id number] ELVIA Braxton [address] [address] 09/19/2024 12:37:32 09/19/2024 14:26:04 Adult health examination 212352822 Z00.00 Type 2 nya betes mellitus without complication 844534451 E11.9 Essential hypertension 69076601 I10 Allergic rhinitis 529152 04 J30.9 Osteoarthritis 451314166 M19.90 Restless legs 03566586 G 25.81 Vitamin D deficiency 347 82778 E55.9 Body mass index 30+ - obesity 079082238 Z68.36 [id number] ELVIA Braxton [address] [address] 2024 13:27:24 2024 14:01:43 Acute left otitis media 628505208 H66.92 Allergic rhinitis 461644 04 J30.9 Essential hypertension 90201445 I10 Osteoarthritis 275131847 M19.90 Restless legs 92369976 G 25.81 Vitamin D deficiency 347 54542 E55.9 Stop Vitamin D supplement es (at [facility]) Type 2 nya betes mellitus without complication 863170723 E11.9 Stop Glipizide (patient would like to reduce meds taken - HgA1c 5.7%) Screening for malignant neoplasm of colon 952890724 Z12.11 [id number] ELVIA Braxton [address] [address] 02/17/2025 07:46:24 02/17/2025 08:42:28 Diabetes mellitus 55664407 E11.9 Continue current meds Acute sinusitis 98757857 J01.90 Rest, fluids, RTC if not improving [id number] ELVIA Braxton [address] [place] [address] 05/19/2025 09:36:40 05/19/2025 10:11:59 Type 2 diabetes mellitus 10229722 E11.9 Z79.4 Continue current meds Cigarette smoker 2243399 7 F17.210 Chronic ob structive pulmonary disease 21592173 J44.9 Sebaceous cyst of skin 773431088 L72.3 Monitor for now Health Concerns Section Related Observation LastModified by Organization Detai ls LastModified Time None Recorded Concern Status LastModified by Organization Details LastModified Time None Recorded Advance Directives Directive N: Payers Insurance Date Sequence Insurance Name Policy Number Policy Young Covered Member ID Young Member ID Guarantor Name 09/19/2024 1 [place] [id number] Francisca Jenkins [id number] Francisca Jenkins 05/16/2025 1 [place] [id number] Francisca Jenkins [id number] Franciscaellie VelasquezGregory Notes Date Note Type Note Provider Name and Address Organization Details Recorded Time 09/19/2024 text/html Patient presents to establish care at [facility] of HTN, DM, HLD, allergic rhinitis, osteoarthritis, Vitamin D deficiency, RLSHas lost about 65 pounds with Ozempic and is feeling good ELVIA Braxton [address] [place] [address], [phone], [employer] 09/19/2024 14:58:53 2024 text/html Patient presents for followup.Blood pressure much improved.Diabetes much better.Left ear feels clogged. ELVIA Braxton [address] [place] [address], [phone], [employer] 2024 14:45:45 02/17/2025 text/html 5 day history of sinus pain, pressure, cough, congestion, dizziness, headache. No fever. No vomiting or diarrhea.Also has history of diabetes, HTN, HLD. Has lost an additional 15 pounds since last visit. Using Ozempic- stopped Metformin at last visit. HgA1c has remained stable at 5.9%. ELVIA Braxton [address] [place] [address], [phone], [employer] 02/17/2025 10:04:14 05/19/2025 text/html Patient presents for followupHIstory of [...] long as he can remember ELVIA Braxton [address] [place], [address], [employer] 05/19/2025 12:42:28
== END 2025-05-28 23:59 | disposition home or self-care (01) ==
LOC: RAD 13:32
PROVIDERS: PCP Physician Assistant; Visit Provider Physician Assistant
DX: Z12.2 Encounter for screening for malignant neoplasm of respiratory organs (principal); R91.1 Solitary pulmonary nodule; F17.210 Nicotine dependence, cigarettes, uncomplicated; E27.9 Disorder of adrenal gland, unspecified
CPT/HCPCS: 71271

== ENCOUNTER 2025-08-30 10:38 | Outpatient (CLI) | payer BC, SELFPAY ==
--- NOTE | 2025-08-30 10:41 | XR_ITS ---
PROCEDURE INFORMATION: Exam: XR Right Hand Exam date and time: 08/30/2025 10:44 AM Age: 59 years old Clinical indication: Pain; Hand; Right; Additional info: Right hand pain, no known trauma TECHNIQUE: Imaging protocol: Radiologic exam of the right hand. Views: 3 or more views. COMPARISON: CR XR HAND RT MIN 3V 08/31/2023 5:22 PM FINDINGS: Bones/joints: No acute fracture or malalignment. No worrisome lytic or blastic lesion. No cortical erosion or periosteal reaction. Mild two moderate scattered joint space narrowing and osteophyte formation. Soft tissues: Normal. IMPRESSION: No acute fracture or malalignment.
--- OUTSIDE RECORDS SUMMARY | 2025-08-30 10:42 | XMS_ITS | Data Portability ---
[facility] Organization [facility] Address [address] [place] [address] Assessment No assessment recorded. Plan of Treatment Reminders Order Date Submit Date Provider Last Modified By Organization Details Last Modified Time Details Appointments FOLLOW UP 15 2025 10:30A Day Scott PA-C Not available Not available Not available Lab HbA1c (hemoglob in A1c), blood [address], [address] [place], [address], 08/21/2025 12:55:19 HbA1c (hemoglob in A1c), blood [address], [address] [place], [address], 05/19/2025 10:13:49 HbA1c (hemoglob in A1c), blood [address], [address] [place], [address], 02/17/2025 08:53:41 noninvasi ve colorecta l cancer DNA + occult blood screening , QL, stool 2024 025 [email or web address] [facility], [address], [address], [place], [address], 08/28/2025 09:31:05 lipid panel, serum 2023 024 [facility] [address] [facility], [place], [address], 09/20/2024 10:10:40 CMP, serum or plasma 2023 024 [facility] [address] [facility], [place], [address], 09/20/2024 10:10:39 CBC w/ auto diff 2023 024 [facility] [address] [facility], [place], [address], 09/20/2024 10:10:39 TSH, ultra-sen sitive, serum 2023 024 [facility] [address] [place], [address], 09/20/2024 10:10:42 vitamin D, 25-hydrox y, total, serum 2023 024 [facility] ([place]), [address] [facility], [place], [address], 09/20/2024 10:10:43 HbA1c (hemoglob in A1c), blood 2023 024 [facility] ([place]), [address] [facility], [place], [address], 09/20/2024 10:10:41 PSA, total, serum or plasma 2023 024 [facility] [address] [facility], [place], [address], 09/20/2024 10:10:44 HIV 1 + 2, meaningfu l use set 2023 024 [facility] [address] [place], [address], 09/20/2024 10:10:44 Hepatitis C IgG Ab, qual, serum 2023 024 [facility], [facility], [place], [address], 09/20/2024 10:10:41 Referral orthopedi c surgeon [facility], [address], [place], [address], 08/28/2025 14:37:38 Procedures None recorded. Surgeries None recorded. Imaging LDCT, chest, for lung cancer screening - 1 ppd X 40 years 2024 025 [facility] ([facility]), [address], [place], [address], 06/04/2025 14:21:42 Medication Orders Breztri Aerospher e 160 mcg-9mcg- 4.8mcg/ac tuation HFA aerosol inhaler 2024 025 [facility], [address] [place] [address], [place], [id number], 06/19/2025 10:26:54 Zithromax Z-Mark 250 mg tablet 2024 025 [email or web address] [facility], [address] [place] [address], [place], [id number], 05/19/2025 09:47:30 prednison e 20 mg tablet 2024 025 [email or web address] [facility], [address] [place] [address], [place], [id number], 05/19/2025 09:47:47 ceftriaxo ne 1 gram solution for injection 2024 025 [email or web address] [facility], [facility] [address], [place], [id number], 05/19/2025 09:47:34 Depo-Medr ol 80 mg/mL suspensio n for injection [address] [facility], [address] [place] [address] S, [place], [id number], 05/19/2025 09:47:38 loratadin e 10 mg tablet 2024 025 [facility], [address] [place] [address], [place], [id number], 2024 14:04:[address] 10 mg tablet 2024 025 [facility], [address] [place] [address], [place], [id number], 2024 14:04:23 meloxicam 7.5 mg tablet 2024 025 [facility], [address] [place] [address] S, [place], [id number], 2024 14:04:18 ropinirol e 1 mg tablet 2024 025 [facility], [address] [place] [address], [place], [id number], 2024 14:04:07 amoxicill in 875 mg tablet 2024 025 [facility], [address] [place] [address] S, [place], [id number], 02/17/2025 09:22:14 prednison e 20 mg tablet [address] [facility] [address] [facility], [address] [place] [address] S, [place], [id number], 05/19/2025 09:47:47 Ozempic 2 mg/dose (8 mg/3 mL) subcutane ous pen injector 2024 025 [facility], [address] [place] [address] [place], [id number], 2024 14:04:10 metoprolo l succinate ER 25 mg tablet,ex tended release 24 hr 2024 025 [facility], [address] [place] [address] [place], [id number], 2024 14:04:19 Ozempic 2 mg/dose (8 mg/3 mL) subcutane ous pen injector 2023 024 [facility], [address] [place] [address] [place], [id number], 09/19/2024 14:58:36 Patient TargetsNo targets recorded. Patient Instructions Encounter Date Encounter Id Patient Instructions Last Modified By Organization Details Last Modified Time 09/19/2024 [id number] allergies: care instructions [email or web address] Not available 09/19/2024 14:57:19 arthritis: care instructions [email or web address] Not available 09/19/2024 14:57:19 restless legs syndrome: care instructions [email or web address] Not available 09/19/2024 14:57:19 high blood pressure: care instructions [email or web address] Not available 09/19/2024 14:57:19 learning about high blood pressure Not available 09/19/2024 14:57:19 type 2 diabetes: care instructions [email or web address] Not available 09/19/2024 13:59:22 body mass index: care instructions [email or web address] Not available 09/19/2024 14:57:19 learning about healthy weight Not available 09/19/2024 14:57:18 2024 [id number] allergies: care instructions Not available 2024 14:04:03 arthritis: care instructions [email or web address] Not available 2024 14:04:03 restless legs syndrome: care instructions [email or web address] Not available 2024 14:04:03 high blood pressure: care instructions [email or web address] Not available 2024 14:04:03 learning about high blood pressure [email or web address] Not available 2024 14:04:03 02/17/2025 [id number] Acute Sinusitis: Care Instructions [email or web address] Not available 02/17/2025 09:10:45 05/19/2025 [id number] learning about type 2 diabetes Not available 05/19/2025 10:13:49 type 2 diabetes: care instructions [email or web address] Not available 05/19/2025 10:13:49 chronic obstructive pulmonary disease (COPD): care instructions [email or web address] Not available 05/19/2025 10:13:50 learning about copd and how to prevent lung infections [email or web address] Not available 05/19/2025 10:13:49 08/21/2025 [id number] restless legs syndrome: care instructions Not available 08/21/2025 14:59:37 learning about type 2 diabetes [email or web address] Not available 08/21/2025 12:55:19 type 2 diabetes: care instructions Not available 08/21/2025 12:55:19 high blood pressure: care instructions [email or web address] Not available 08/21/2025 14:59:37 learning about high blood pressure [email or web address] Not available 08/21/2025 14:59:37 Reason for Referral Orthopedic Surgeon Referral for Dupuytren contracture of right palm Referring Physician: Elaine Scott, Family Medicine, Encounter Date: 08/21/2025 Results Created Date Observation Date Name Description Value Unit Range Abnormal Flag Note LastModifiedBy Organization Detail LastModifiedTime 09/19/20 24 09/20/2024 CBC WITH DIFFE RENTI AL/PL ATELE T WBC 8.7 x10e3 /uL 3.4-10 .8 normal Not Available [facility] ([facility]) [address] [facility], [place], [address], 09/20/2024 10:10:38 09/19/20 24 09/20/2024 CBC WITH DIFFE RENTI AL/PL ATELE T RBC 5.38 x10e6 /uL 4.14-5 .80 normal Not Available [facility] ([facility]) [address] [place], [address], 09/20/2024 10:10:38 09/19/20 24 09/20/2024 CBC WITH DIFFE RENTI AL/PL ATELE T hemoglobin 17.0 g/dL 13.0-1 7.7 normal Not Available [facility] ([facility]) [address] [place], [address], 09/20/2024 10:10:38 09/19/20 24 09/20/2024 CBC WITH DIFFE RENTI AL/PL ATELE T hematocrit 49.8 % 37.5-5 1.0 normal Not Available [facility] ([facility]) [address] [place], [address], 09/20/2024 10:10:38 09/19/20 24 09/20/2024 CBC WITH DIFFE RENTI AL/PL ATELE T MCV 93 fL 79-97 normal Not Available [facility] ([facility]) [address] [place], [address], 09/20/2024 10:10:38 09/19/20 24 09/20/2024 CBC WITH DIFFE RENTI AL/PL ATELE T MCH 31.6 pg 26.6-3 3.0 normal Not Available [facility] ([facility]) [address] [place], [address], 09/20/2024 10:10:38 09/19/20 24 09/20/2024 CBC WITH DIFFE RENTI AL/PL ATELE T MCHC 34.1 g/dL 31.5-3 5.7 normal Not Available [facility] ([facility]) [address] [place], [address], 09/20/2024 10:10:38 09/19/20 24 09/20/2024 CBC WITH DIFFE RENTI AL/PL ATELE T RDW 13.0 % 11.6-1 5.4 Not Available [facility] ([facility]) [address] [facility], [place], [address], 09/20/2024 10:10:38 09/19/20 24 09/20/2024 CBC WITH DIFFE RENTI AL/PL ATELE T platelets 199 x10e3 /uL 150-45 0 normal Not Available [facility] ([facility]) [address] [facility], [place], [address], 09/20/2024 10:10:38 09/19/20 24 09/20/2024 CBC WITH DIFFE RENTI AL/PL ATELE T neutrophils 57 % not estab. normal Not Available [facility] ([facility]) [address] [facility], [place], [address], 09/20/2024 10:10:38 09/19/20 24 09/20/2024 CBC WITH DIFFE RENTI AL/PL ATELE T lymphs 31 % not estab. normal Not Available [facility] ([facility]) [address] [facility], [place], [address], 09/20/2024 10:10:38 09/19/20 24 09/20/2024 CBC WITH DIFFE RENTI AL/PL ATELE T monocytes 9 % not estab. normal Not Available [facility] ([facility]) [address] [facility], [place], [address], 09/20/2024 10:10:38 09/19/20 24 09/20/2024 CBC WITH DIFFE RENTI AL/PL ATELE T eos 2 % not estab. normal Not Available [facility] ([facility]) [address] [facility], [place], [address], 09/20/2024 10:10:38 09/19/20 24 09/20/2024 CBC WITH DIFFE RENTI AL/PL ATELE T basos 1 % not estab. normal Not Available [facility] ([facility]) [address] [facility], [place], [address], 09/20/2024 10:10:38 09/19/20 24 09/20/2024 CBC WITH DIFFE RENTI AL/PL ATELE T immature cells BOW MAKER Not Available [facility] ([facility]) [address] [facility], [place], [address], 09/20/2024 10:10:38 09/19/20 24 09/20/2024 CBC WITH DIFFE RENTI AL/PL ATELE T neutrophils (absolute) 5.0 x10e3 /uL 1.4-7. 0 normal Not Available [facility] ([facility]) [address] [facility], [place], [address], 09/20/2024 10:10:38 09/19/20 24 09/20/2024 CBC WITH DIFFE RENTI AL/PL ATELE T lymphs (absolute) 2.7 x10e3 /uL 0.7-3. 1 normal Not Available [facility] ([facility]) [address] [facility], [place], [address], 09/20/2024 10:10:38 09/19/20 24 09/20/2024 CBC WITH DIFFE RENTI AL/PL ATELE T monocytes(ab solute) 0.8 x10e3 /uL 0.1-0. 9 normal Not Available [facility] ([facility]) [address] [place], [address], 09/20/2024 10:10:38 09/19/20 24 09/20/2024 CBC WITH DIFFE RENTI AL/PL ATELE T eos (absolute) 0.2 x10e3 /uL 0.0-0. 4 normal Not Available [facility] ([facility]) [address] [facility], [place], [address], 09/20/2024 10:10:38 09/19/20 24 09/20/2024 CBC WITH DIFFE RENTI AL/PL ATELE T baso (absolute) 0.1 x10e3 /uL 0.0-0. 2 normal Not Available [facility] ([facility]) [address] [facility], [place], [address], 09/20/2024 10:10:38 09/19/20 24 09/20/2024 CBC WITH DIFFE RENTI AL/PL ATELE T immature granulocytes 0 % not estab. Not Available [facility] ([facility]) [address] [facility], [place], [address], 09/20/2024 10:10:38 09/19/20 24 09/20/2024 CBC WITH DIFFE RENTI AL/PL ATELE T immature grans (abs) 0.0 x10e3 /uL 0.0-0. 1 Not Available [facility] ([facility]) [address] [facility], [place], [address], 09/20/2024 10:10:38 09/19/20 24 09/20/2024 CBC WITH DIFFE RENTI AL/PL ATELE T NRBC BOW MAKER Not Available [facility] ([facility]) [address] [facility], [place], [address], 09/20/2024 10:10:38 09/19/20 24 09/20/2024 CBC WITH DIFFE RENTI AL/PL ATELE T hematology comments: BOW MAKER Not Available [facility] ([facility]) [address] [facility], [place], [address], 09/20/2024 10:10:38 09/19/20 24 09/20/2024 COMP. METAB OLIC PANEL (14) glucose 62 mg/dL 70-99 below low normal Not Available [facility] ([facility]) [address] [facility], [place], [address], 09/20/2024 10:10:39 09/19/20 24 09/20/2024 COMP. METAB OLIC PANEL (14) BUN 11 mg/dL 6-24 normal Not Available [facility] ([facility]) [address] [place], [address], 09/20/2024 10:10:39 09/19/20 24 09/20/2024 COMP. METAB OLIC PANEL (14) creatinine 0.71 mg/dL 0.76-1 .27 below low normal Not Available [facility] ([facility]) [address], [place], [address], 09/20/2024 10:10:39 09/19/20 24 09/20/2024 COMP. METAB OLIC PANEL (14) eGFR 108 mL/mi n/1.7 3 >59 normal Not Available [facility] ([facility]) [address] [place], [address], 09/20/2024 10:10:39 09/19/20 24 09/20/2024 COMP. METAB OLIC PANEL (14) BUN/creatini ne ratio 15 9-20 normal Not Available [facility] ([facility]) [address] [place], [address], 09/20/2024 10:10:39 09/19/20 24 09/20/2024 COMP. METAB OLIC PANEL (14) sodium 139 mmol/ L 134-14 4 normal Not Available [facility] ([facility]) [address] [facility] [place], [address], 09/20/2024 10:10:39 09/19/20 24 09/20/2024 COMP. METAB OLIC PANEL (14) potassium 4.2 mmol/ L 3.5-5. 2 normal Not Available [facility] ([facility]) [address] [place], [address], 09/20/2024 10:10:39 09/19/20 24 09/20/2024 COMP. METAB OLIC PANEL (14) chloride 100 mmol/ L 96-106 normal Not Available [facility] ([facility]) [address] [place], [address], 09/20/2024 10:10:39 09/19/20 24 09/20/2024 COMP. METAB OLIC PANEL (14) carbon dioxide, total 24 mmol/ L 20-29 normal Not Available [facility] ([facility]) [address] [facility] [place], [address], 09/20/2024 10:10:39 09/19/20 24 09/20/2024 COMP. METAB OLIC PANEL (14) calcium 9.5 mg/dL 8.7-10 .2 normal Not Available [facility] ([facility]) [address] [facility] [place], [address], 09/20/2024 10:10:39 09/19/20 24 09/20/2024 COMP. METAB OLIC PANEL (14) protein, total 6.8 g/dL 6.0-8. 5 normal Not Available [facility] ([facility]) [address] [facility] [place], [address], 09/20/2024 10:10:39 09/19/20 24 09/20/2024 COMP. METAB OLIC PANEL (14) albumin 4.3 g/dL 3.8-4. 9 normal Not Available [facility] ([facility]) [address] [facility] [place], [address], 09/20/2024 10:10:39 09/19/20 24 09/20/2024 COMP. METAB OLIC PANEL (14) globulin, total 2.5 g/dL 1.5-4. 5 Not Available [facility] ([facility]) [address] [facility] [place], [address], 09/20/2024 10:10:39 09/19/20 24 09/20/2024 COMP. METAB OLIC PANEL (14) bilirubin, total 0.4 mg/dL 0.0-1. 2 normal Not Available [facility] ([facility]) [address] [facility] [place], [address], 09/20/2024 10:10:39 09/19/20 24 09/20/2024 COMP. METAB OLIC PANEL (14) alkaline phosphatase 83 IU/L 44-121 normal Not Available [facility]) [address] [place], [address], 09/20/2024 10:10:39 09/19/20 24 09/20/2024 COMP. METAB OLIC PANEL (14) AST (SGOT) 24 IU/L 0-40 normal Not Available [facility] ([facility]) [address] [place], [address], 09/20/2024 10:10:39 09/19/20 24 09/20/2024 COMP. METAB OLIC PANEL (14) ALT (SGPT) 22 IU/L 0-44 normal Not Available [facility] ([facility]) [address] [place], [address], 09/20/2024 10:10:39 09/19/20 24 09/20/2024 LIPID PANEL cholesterol, total 134 mg/dL 100-19 9 normal Not Available [facility] ([facility]) [address] [place], [address], 09/20/2024 10:10:40 09/19/20 24 09/20/2024 LIPID PANEL triglyceride s 84 mg/dL 0-149 normal Not Available [facility]) [address] [place], [address], 09/20/2024 10:10:40 09/19/20 24 09/20/2024 LIPID PANEL HDL cholesterol 37 mg/dL >39 below low normal Not Available [facility] ([facility]) [address] [place], [address], 09/20/2024 10:10:40 09/19/20 24 09/20/2024 LIPID PANEL VLDL cholesterol onofre 16 mg/dL 5-40 Not Available [facility]) [address] [facility], [place], [address], 09/20/2024 10:10:40 09/19/20 24 09/20/2024 LIPID PANEL LDL chol calc (rust) 81 mg/dL 0-99 Not Available [facility]) [address] [facility], [place], [address], 09/20/2024 10:10:40 09/19/20 24 09/20/2024 LIPID PANEL LDL calc comment: BOW MAKER Not Available [facility] ([facility]) [address] [facility], [place], [address], 09/20/2024 10:10:40 09/19/20 24 09/20/2024 HCV ANTIB BRANDON CASCA DE(PC R/GEN O) HCV Ab NON REACTI VE non reacti ve Not Available [facility] ([facility]) [address] [facility], [place], [address], 09/20/2024 10:10:41 09/19/20 24 09/20/2024 HCV ANTIB BRANDON CASCA DE(PC R/GEN O) interpretati on: COMMEN T Not infec leticia with HCV unles s early or acute infec tion is suspe cted (whic h may be delay ed in an immun ocomp romis ed indiv idual ), or other evide nce exist s to indic ate HCV infec tion. Not Available [facility] ([facility]) [address] [facility], [place], [address], 09/20/2024 10:10:41 09/19/20 24 09/20/2024 HEMOG LOBIN A1C hemoglobin A1C 5.7 % 4.8-5. 6 above high normal Predi abete s: 5.7 - 6.4 Diabe bradley: >6.4 Glyce akil contr ol for adult s with diabe bradley: <7.0 Not Available [facility] ([facility]) [address] [facility], [place], [address], 09/20/2024 10:10:41 09/19/20 24 09/20/2024 TSH TSH 1.040 uIU/m L 0.450- 4.500 normal Not Available [facility] ([facility]) [address] [facility], [place], [address], 09/20/2024 10:10:42 09/19/20 24 09/20/2024 VITAM IN [...] 1. IOM (Inst itute of Medic ine). 2009. Dieta ry refer ence intak es for calci um and D. Julien lee [place]: [facility] . 2. Ayden riley [place], Marii riley [place], Libby off-F errar i FENTON, et al. Evalu ation , treat ment, and preve ntion of vitam in D defic iency : an Endoc rine Socie ty clini onofre pract ice guide line. JCEM. 2010; 96(7) :1911 -30. Not Available [facility] ([facility]) [address] [facility], [place], [address], 09/20/2024 10:10:43 09/19/20 24 09/20/2024 HIV AB/P2 4 AG WITH REFLE X HIV Ab/P24 Ag screen NON REACTI VE non reacti ve HIV Negat abhi HIV-1 /HIV- 2 antib odies and HIV-1 p24 antig en were NOT detec leticia. There is no labor atory evide nce of HIV infec tion. Not Available [facility] ([facility]) [address] [facility], [place], [address], 09/20/2024 10:10:44 09/19/20 24 09/20/2024 PROST ATE [...] t be inter prete d as absol kenaitze evide nce of the prese nce or absen ce of jaime dutta se. Not Available [facility] ([facility]) [address] [facility], [place], [address], 09/20/2024 10:10:44 02/18/20 25 02/17/2025 HbA1c (hemo globi n A1c), blood HbA1c 5.9 % Not Available [facility] [address] [place] [address], [address], 02/17/2025 08:09:34 05/19/20 25 05/19/2025 HbA1c (hemo globi n A1c), blood HbA1c 6.0 Not Available [facility] [address] [place], [address], 05/19/2025 09:49:11 08/21/20 25 08/21/2025 HbA1c (hemo globi n A1c), blood HbA1c 5.7 % Not Available [facility] [address] [place], [address], 08/21/2025 10:55:03 06/04/20 25 05/28/2025 LDCT, chest , for lung cance r annabel sharp No observ ation record ed. [facility] [address], [place], [address], 06/06/2025 14:53:02 Result Notes None recorded. Problems Name Problem SNOMED Code Status Onset Date Resolution Date Notes Provider Name and Address Organization Details Recorded Time Essential hypertens ion 11267630 Active 2023 ELVIA Braxton [address] [place] [address], [address], [employer] 14:53:59 Allergic rhinitis 28211404 Active 2023 ELVIA Braxton [address] [place] [address], [address] 8, [employer] 14:53:55 Osteoarth ritis 325043391 Active 2023 ELVIA Braxton [address] [place] [address], [address] 8, [employer] 14:54:02 Restless legs syndrome 71226314 Active 2023 ELVIA Braxton [address] [place] [address], [address] 8, [employer] 14:54:05 Vitamin D deficienc y 40836164 Active 2023 ELVIA Braxton [address] [place] [address], [address] 8, [employer] 14:54:12 Diabetes mellitus 67040571 Active 2023 ELVIA Braxton [address] [place] [address], [address] 8, [employer] 4 14:54:18 Acute left otitis media 165983131 Completed 202408/21/2025 ELVIA Braxton [address] [place] [address], [address] 8, [employer] 14:58:56 Type 2 diabetes mellitus without complicat ion 138886563 Active 2024 ELVIA Braxton [address] [place] [address], [address] 8, [employer] 14:44:08 Acute sinusitis 48252784 Completed 202408/21/2025 ELVIA Braxton [address] [place] [address], [address] 8, [employer] 14:59:00 Cigarette smoker 78720426 Active 2024 ELVIA Braxton [address] [place] [address], [address] 8, [employer] 10:11:36 Simple chronic bronchiti s 46746605 Active 2024 ELVIA Braxton [address] [place] [address], 47[address]238 8, [employer] 10:11:45 Chronic obstructi ve pulmonary disease 69507697 Active 2024 ELVIA Braxton [address] [place] [address], [address] 8, [employer] 10:12:08 Sebaceous cyst of skin 935349046 Completed 202408/21/2025 ELVIA Braxton [address] [place] [address], [address] 8, [employer] 14:59:12 Dermatoph ytosis 51312915 Completed 202408/21/2025 ELVIA Braxton [address] [place] [address], [address] 8, [employer] 14:59:16 Dupuytren contractu re of right palm [id number] [address]00 Active 2024 ELVIA Braxton [address] [place] [address], [address] 8, [employer] 11:32:40 Problem Notes None recorded. Procedures Surgical History Date Name Laterality Status Provider Name and Address Organization Details Recorded Time Diabetic Foot Screen completed ELVIA Braxton [address] [place], [address], [employer] 2024 14:43:33 operation on heart valve completed Ada [facility] [employer] 08/21/2025 10:54:28 Imaging Results None recorded. Procedure Notes None recorded. Medical Equipment None Reported. Allergies No known drug allergies Medications Name Sig Start Date Stop Date Status Note LastModified by Organization Details LastModified Time atorvastati n 40 mg tablet 09/19 completed Not Available Not Available Not Available terbinafine HCl 1 % topical cream APPLY TO THE AFFECTED AREA(S) ONCE A DAY 08/21 completed Not Available Not Available Not Available [...] 2 TIMES A DAY FOR 5 DAYS active Not Available Not Available No t Available aspirin 81 mg tablet,luis a yed [...] mg tablet,exte nded release 24 hr TAKE 1 TABLET BY MOUTH ONCE A DAY FOR [...] Not Available No t Available amoxicillin 875 mg-potheatheriu m clavulanate 125 mg tablet 09/19 completed [...] MG SUBCUTANE OUSLY ONCE WEEKLY FOR DIABETES active Not Available Not Available No t Available Ozempic 0.25 mg or 0.5 mg (2 mg/3 mL) subcutaneou s pen injector 09/19 completed Not Available Not Available Not Available Vitals Date Recorded Body height Body mass index (BMI) Body weight Oxygen saturation Oxygen saturation in Arterial blood by Pulse oximetry Heart rate Body temperature Systolic And Diastolic Provider Name and Address Organization Details Last Updated DateTime 5 172.72 cm 37.4 kg/m2 091187. 44 g 96 % 96 % 76 /min 98.4 [degF] 107/73 mm[Hg] [employer] 5 13:43:19 Date Recorded Body height Body mass index (BMI) Body weight Heart rate Body temperature Oxygen saturation Oxygen saturation in Arterial blood by Pulse oximetry Systolic And Diastolic Provider Name and Address Organization Details Last Updated DateTime 5 172.72 cm 35.6 kg/m2 402449. 05 g 76 /min 97.6 [degF] 94 % 94 % 100/68 mm[Hg] [employer] 5 08:06:17 Date Recorded Body height Body mass index (BMI) Body weight Oxygen saturation Oxygen saturation in Arterial blood by Pulse oximetry Heart rate Body temperature Systolic And Diastolic Provider Name and Address Organization Details Last Updated DateTime 5 172.72 cm 33.9 kg/m2 310259. 5 g 95 % 95 % 76 /min 98.1 [degF] 105/70 mm[Hg] Dinora Avalos [employer]. 5 09:51:42 Date Recorded Body height Body mass index (BMI) Body weight Heart rate Oxygen saturation Oxygen saturation in Arterial blood by Pulse oximetry Body temperature Systolic And Diastolic Provider Name and Address Organization Details Last Updated DateTime 5 172.72 cm 34.4 kg/m2 726717. 31 g 82 /min 95 % 95 % 97.9 [degF] 102/72 mm[Hg] [employer] 5 10:53:01 Date Recorded Body weight Body mass index (BMI) Body height Heart rate Oxygen saturation Oxygen saturation in Arterial blood by Pulse oximetry Systolic And Diastolic Provider Name and Address Organization Details Last Updated DateTime 336506. 32 g 36.6 kg/m2 172.72 cm 75 /min 95 % 95 % 123/83 mm[Hg] Ada Hodges [employer]. 13:26:17 Social History Question Answer Notes LastModified by Organizat ion Details LastModified Time Tobacco Smoking Status Current Every Day Smoker Ada Hodges [employer]. 09/19/2024 13:26:47 Do You Have An Advance [...] Information not available 09/19/2024 What Type Of Amr Physician Do You Use? None Information not available [...] Or The Highest Degree You Have Received? [id number] Information not available 09/19/2024 Have There Been Any Changes To Your Family Or Social Situation? No Information no t available 09/19/2024 Which Of Your Hands Is Dominant? Right Information not available 09/19/2024 What Is Your Home Situation? Other Information not available 09/19/2024 Do You Have A Medical Power Of Area Field Worker? No Information not available 09/19/2024 What Was The Date Of Your Most Recent Tobacco Screening? 08/21/2025 Information not available 08/21/2025 Are There Any Occupational Health Risks Where [...] What Date Was Tobacco Cessation Counseling Provided? 08/21/2025 Information not available 08/21/2025 Have You Recently Traveled Abroad? No Information [...] not available 09/19/2024 Are you able to walk independently without assistance or assistive devices? YESWOREST Information not available 09/19/2024 Do you have difficulty doing errands alone? No Information not available 09/19/2024 Are you able to care for yourself independently? Yes Information not available 09/19/2024 Do you have difficulty dressing, bathing, grooming, or toileting? No Information not available 09/19/2024 What is your exercise level? None Information not available 09/19/2024 Mental Status Question Answer Note LastModified by Organizat ion Details LastModified Time Do you feel stressed (tense, restless, nervous, or anxious, or unable to sleep at night)? [id number] Information not available 09/19/2024 Do you have [...] room visit since last appointm ent. N Hypothyroidism N Lung Disease N Dermatologic Disorders N Depression N COPD Y Developmental or Behavioral Disorders N Defects or [...] N Psychiatric/Mental Health Condition N Fibromyalgia N Headaches N Schizophrenia N Dialysis N Kidney Disease N Allergies/Hayfever Y Heart [...] N Pulmonary Embolism N Tourette Syndrome N Pre-Eclampsia N Hypertension Y Chronic Ear Infections N Osteoporosis N Chicken Pox N Autism Spectrum Disorder (ASD) N Thrombophilias N Immunizations Vaccine Type Date Status Note Provider Nam e and Address Organization Details Recorded Time Tdap 0 completed Ada Vice null, [employer] 2024 13:39:06 Td (adult), 2 Lf tetanus toxoid, preservative free, adsorbed 7 completed Ada Vice null, [employer] 2024 13:39:06 Tdap 5 completed Not Available [facility] 08/21/2025 10:49:26 Past Encounters Encounter ID Performer Location Encounter Start Date Encounter Closed Date Diagnosis/Indication Diagnosis SNOMED-CT Code Diagnosis ICD10 Code Diagnosis IMO Codes Diagnosis Note [id number] ELVIA Braxton [facility] [address] [place] [address] 09/19/2024 12:37:32 09/19/2024 14:26:04 Adult health examination 394538646 Z00.00 Type 2 nya betes mellitus without complication 729827536 E11.9 Essential hypertension 97648422 I10 Allergic rhinitis 517583 04 J30.9 Osteoarthritis 412213588 M19.90 Restless l egs syndrome 59710374 G25.81 Vitamin D deficiency 347 44169 E55.9 Body mass index 30+ - obesity 967775786 Z68.36 [id number] ELVIA Braxton [address] [address] 2024 13:27:24 2024 14:01:43 Acute left otitis media 648133075 H66.92 Allergic rhinitis 229653 04 J30.9 Essential hypertension 83666347 I10 Osteoarthritis 169571548 M19.90 Restless l egs syndrome 28115877 G25.81 Vitamin D deficiency 347 70508 E55.9 Stop Vitamin D supplement es (at target) Type 2 nya betes mellitus without complication 758134790 E11.9 Stop Glipizide (patient would like to reduce meds taken - HgA1c 5.7%) Screening for malignant neoplasm of colon 193359122 Z12.11 [id number] ELVIA Braxton [address] [address] 02/17/2025 07:46:24 02/17/2025 08:42:28 Diabetes mellitus 26188680 E11.9 Continue current meds Acute sinusitis 86377633 J01.90 Rest, fluids, RTC if not improving [id number] ELVIA Braxton [address] [address] 05/19/2025 09:36:40 05/19/2025 10:11:59 Type 2 diabetes mellitus 48442624 E11.9 Z79.4 85668727 Continue current meds Cigarette smoker 0170447 7 F17.210 811937 Chronic ob structive pulmonary disease 61890367 J44.9 9464527 Sebaceous cyst of skin 800527083 L72.3 09505 Monitor for now [id number] ELVIA Braxton [address] [address] 08/21/2025 10:29:17 08/21/2025 11:54:22 Type 2 diabetes mellitus 52560799 E11.9 81136300 Dupuytren contracture of right palm 3426860643 3536896 M72.0 13626558 Essential hypertension 02810408 I10 Vitamin D deficiency 347 46917 E55.9 Restless l egs syndrome 86308634 G25.81 Health Concerns Section Related Observation LastModified by Organization Detai ls LastModified Time None Recorded Concern Status LastModified by Organization Details LastModified Time None Recorded Advance Directives Directive N: Payers Insurance Date Sequence Insurance Name Policy Number Policy Young Covered Member ID Young Member ID Guarantor Name 09/19/2024 1 [place] [id number] Francisca Jenkins [id number] Francisca Jenkins 08/22/2025 1 [place] [id number] Francisca Jenkins [id number] Francisca Jenkins Notes Date Note Type Note Provider Name and Address Organization Details Recorded Time 09/19/2024 text/html [facility], allergic rhinitis, osteoarthritis, Vitamin D deficiency, RLSHas lost about 65 pounds with Ozempic and is feeling good ELVIA Braxton [address] [place], [address], [employer] 09/19/2024 14:58:53 2024 text/html Patient presents for followup.Blood pressure much improved.Diabetes much better.Left ear feels clogged. ELVIA Braxton [address] [place], [address], [employer] 2024 14:45:45 02/17/2025 text/html ROS as noted in the HPI 5 day history of sinus pain, pressure, cough, congestion, dizziness, headache. No fever. No vomiting or diarrhea.Also has history of diabetes, HTN, HLD. Has lost an additional 15 pounds since last visit. Using Ozempic- stopped Metformin at last visit. HgA1c has remained stable at 5.9%. ELVIA Braxton [address] [place], [address], [employer] 02/17/2025 10:04:14 05/19/2025 text/html ROS as noted in the HPI Patient presents for followupHIstory of diabetes. Doing [...] as he can remember ELVIA Braxton [address] [place], [address], [employer] 05/19/2025 12:42:28 08/21/2025 text/html ROS as noted in the HPI Patient presents for followup.History of DM, HLD, HTN.Has pain in his right hand and cannot flatten it completely. ELVIA Braxton [address] [place], [address], [employer] 08/21/2025 15:02:28
--- OUTSIDE RECORDS SUMMARY | 2025-08-30 10:42 | XMS_ITS | Continuity of Care Document ---
Author Organization [place] - [employer] [facility] Address [address] [place] [address] Assessment No assessment recorded. Plan of Treatment Reminders Order Date Submit Date Provider Last Modified By Organization Details Last Modified Time Details Appointments FOLLOW UP 15 2025 10:30A M Elaine Scott PA-C Not available Not available Not available Lab HbA1c (hemoglob in A1c), blood 2024 025 [email or web address] [facility], [address] [facility], [place], [address], 08/21/2025 12:55:19 Referral orthopedi c surgeon referral 2024 025 ATHENAFAX [facility]to [facility], [address] [place], [address], 08/28/2025 14:37:38 Procedures None recorded. Surgeries None recorded. Imaging None recorded. Medication Orders None recorded. Patient TargetsNo targets recorded. Patient Instructions Encounter Date Encounter Id Patient Instructions Last Modified By Organization Details Last Modified Time 08/21/2025 [id number] restless legs syndrome: care instructions Not available 08/21/2025 14:59:37 learning about type 2 diabetes [email or web address] Not available 08/21/2025 12:55:19 type 2 diabetes: care instructions [email or web address] Not available 08/21/2025 12:55:19 high blood pressure: care instructions [email or web address] Not available 08/21/2025 14:59:37 learning about high blood pressure [email or web address] Not available 08/21/2025 14:59:37 Reason for Referral Orthopedic Surgeon Referral for Dupuytren contracture of right palm Referring Physician: Elaine Scott, Family Medicine, Encounter Date: 08/21/2025 Results Created Date Observation Date Name Description Value Unit Range Abnormal Flag Note LastModifiedBy Organization Detail LastModifiedTime 08/21/20 25 08/21/2025 HbA1c (hemo globi n A1c), blood HbA1c 5.7 % Not Available [facility] [address] [facility], [place], [address], 08/21/2025 10:55:03 Result Notes None recorded. Problems Name Problem SNOMED Code Status Onset Date Resolution Date Notes Provider Name and Address Organization Details Recorded Time Essential hypertens ion 10068634 Active 2023 ELVIA Braxton [address] [place] [address], [address], [employer] 4 14:53:59 Allergic rhinitis 62768313 Active 2023 ELVIA Braxton [address] [place] [address], [address], [employer] 4 14:53:55 Osteoarth ritis 227397616 Active 2023 ELVIA Braxton [address] [place] [address], [address], [employer] 4 14:54:02 Restless legs syndrome 81236740 Active 2023 ELVIA Braxton [address] [place] [address], [address], [employer] 4 14:54:05 Vitamin D deficienc y 63568566 Active 2023 ELVIA Braxton [address] [place] [address], [address], [employer] 4 14:54:12 Diabetes mellitus 37555316 Active 2023 ELVIA Braxton [address] [place] [address], [address], [employer] 4 14:54:18 Acute left otitis media 855983705 Completed 202408/21/2025 ELVIA Braxton [address] [place] [address], [address], [employer] 14:58:56 Type 2 diabetes mellitus without complicat ion 162941322 Active 2024 ELVIA Braxton [address] [place] [address], [address], [employer] 14:44:08 Acute sinusitis 14433145 Completed 202408/21/2025 ELVIA Braxton [address] [place] [address], [address], [employer] 14:59:00 Cigarette smoker 75121227 Active 2024 ELVIA Braxton [address] [place] [address], [address], [employer] 10:11:36 Simple chronic bronchiti s 86079876 Active 2024 ELVIA Braxton [address] [place] [address], [address], [employer] 10:11:45 Chronic obstructi ve pulmonary disease 17696897 Active 2024 ELVIA Braxton [address] [place] [address], [address], [employer] 10:12:08 Sebaceous cyst of skin 254352656 Completed 202408/21/2025 ELVIA Braxton [address] [place] [address], [address], [employer] 14:59:12 Dermatoph ytosis 93273792 Completed 202408/21/2025 ELVIA Braxton [address] [place] [address], [address], [employer] 14:59:16 Dupuytrejaspreet contractu re of right palm 427914309194 16769 Active 2024 ELVIA Braxton [address] [place] [address], [address], [employer] 11:32:40 Problem Notes None recorded. Procedures Surgical History Date Name Laterality Status Provider Name and Address Organization Details Recorded Time Diabetic Foot Screen completed ELVIA Braxton [address] [place] [address], [address], [employer] 2024 14:43:33 operation on heart valve completed Ada Hodges [employer] 08/21/2025 10:54:28 Imaging Results None recorded. Procedure [...] Organization Details Last Updated DateTime 172.72 cm 34.4 kg/m2 709055. 31 g 82 /min 95 % 95 % 97.9 [degF] 102/72 mm[Hg] [employer] 10:53:01 Social History Question Answer Notes LastModified by Organizat ion Details LastModified Time Tobacco Smoking Status Current Every Day Smoker Ada Hodges [employer] 09/19/2024 13:26:47 Do You Have An Advance [...] Information not available 09/19/2024 What Type Of Service Dispatcher Do You Use? None Information not available [...] Or The Highest Degree You Have Received? [id number] Information not available 09/19/2024 Have There Been Any Changes To Your Family Or Social Situation? No Information no t available 09/19/2024 Which Of Your Hands Is Dominant? Right Information not available 09/19/2024 What Is Your Home Situation? Other Information not available 09/19/2024 Do You Have A Medical Power Of Nuclear Equipment Sales Engineer? No Information not available 09/19/2024 What Was [...] anxious, or unable to sleep at night)? [id number] Information not available 09/19/2024 Do you have [...] Artery Disease N Other Y Gout N Blood Diseases N Kidney Stones N Hyperthyroidism N Blood Transfusion N Breast Cancer N Emergency room visit since last appointm ent. N Lung Disease N COPD Y Depression N Dermatologic Disorders N Hypothyroidism N Defects or Inherited Disease N Developmental [...] N High Cholesterol Y Liver Disease N Psychiatric/Mental Health Condition N Organ Transplant N Dialysis N Schizophrenia N Fibromyalgia N Headaches N Kidney Disease N Allergies/Hayfever [...] Time Tdap 0 completed Ada Vice null, [employer] 2024 13:39:06 Td (adult), 2 Lf tetanus toxoid, preservative free, adsorbed 7 completed Ada Vice null, [employer] 2024 13:39:06 Tdap 5 completed Not Available [facility] 08/[facility] 10:49:26 Past Encounters Encounter ID Performer Location Encounter Start Date Encounter Closed Date Diagnosis/Indication Diagnosis SNOMED-CT Code Diagnosis ICD10 Code Diagnosis IMO Codes Diagnosis Note [id number] ELVIA Braxton [facility] [address] [place] [address] 08/21/2025 10:29:17 08/21/2025 11:54:22 Type 2 diabetes mellitus 62633022 E11.9 08323051 Dupuytren contracture of right palm 8048468392 1575976 M72.0 18982826 Essential hypertension 64425256 I10 Vitamin D deficiency 347 80952 E55.9 Restless l egs syndrome 97339891 G25.81 Health Concerns Section Related Observation LastModified by Organization Detai ls LastModified Time None Recorded Concern Status LastModified by Organization Details LastModified Time None Recorded Payers Encounter Date Sequence Insurance Name Policy Number Policy Young Covered Member ID Young Member ID Guarantor Name 08/21/2025 1 [place] [id number] 1 Francisca Jenkins [id number] Francisca Jenkins Notes Date Note Type Note Provider Name and Address Organization Details Recorded Time 08/21/2025 text/html ROS as noted in the HPI Patient presents for followup.Histor y of DM, HLD, HTN.Has pain in his right hand and cannot flatten it completely. ELVIA Braxton [address] [place] [address], [address], [facility] [employer] 08/21/2025 15:02:28
== END 2025-08-30 23:59 | disposition home or self-care (01) ==
LOC: RAD 10:41
PROVIDERS: PCP Physician Assistant; Visit Provider Physician Assistant
DX: M79.641 Pain in right hand (principal)
CPT/HCPCS: 73130

== ENCOUNTER 2025-10-16 14:04 | Outpatient (CLI) | payer BC, SELFPAY ==
[2025-10-16 14:30] LABS: Hematocrit 46.2 % (42.0-52.0); Hemoglobin 15.6 g/dL (14.1-18.0); Immature Granulocytes % 0.3 %; Mean Corpuscular HGB Conc 33.8 g/dL (31.8-35.4); Mean Corpuscular Hemoglobin 31.2 pg (27.0-31.2); Mean Corpuscular Volume 92.4 fl (80-94); Nucleated Red Blood Cells % 0 %; Platelet Count 198 K/mm3 (142-424); Red Blood Count 5.00 M/mm3 (4.60-6.20); Red Cell Distribution Width-SD 43.3 fL; White Blood Count 7.7 K/mm3 (4.8-10.8)
[2025-10-16 15:19] LABS: Albumin Level 4.4 g/dl (3.5-5.0); Chloride 100 mmol/L (98-107); Potassium 4.2 mmoL/L (3.5-5.1); Sodium 140 mmol/L (136-145)
[2025-10-16 15:22] LABS: Alanine Aminotransferase 21 U/L (12-78); Alkaline Phosphatase 50 U/L (38-126); Anion Gap 14.2 mEq/L (5-15); Aspartate Amino Transferase 25 U/L (17-59); Bilirubin,Direct 0.1 mg/dl (0.0-0.4); Bilirubin,Indirect 0.5 mg/dL (0.0-0.9); Bilirubin,Total 0.6 mg/dl (0.2-1.3); Bilirubin,Unconjugated 0.5 mg/dL (0.0-1.1); Blood Urea Nitrogen 14 mg/dl (9-20); Calcium 9.0 mg/dl (8.4-10.2); Carbon Dioxide 30 mmol/L (22.0-30.0); Cholesterol 123 mg/dl (140-200); Creatinine,Serum 0.80 mg/dl (0.66-1.25); Estimated Glomerular Filt Rate 100 ml/min (>60); GFR (African American) 121 ML/MIN (>60); Glucose 93 mg/dl (74-100); Magnesium 1.7 mg/dl (1.6-2.3); Total Protein,Serum 7.1 g/dl (6.3-8.2); Triglycerides 87 mg/dl (30-150)
[2025-10-16 15:23] LABS: HDL Cholesterol 51 mg/dl (40-60)
[2025-10-16 15:43] LABS: Free T4 (Free Thyroxine) 0.88 ng/dl (0.78-2.19)
[2025-10-16 15:52] LABS: Thyroid Stimulating Hormone 1.67 uIU/mL (0.465-4.68)
== END 2025-10-16 23:59 | disposition home or self-care (01) ==
LOC: LAB 14:05
PROVIDERS: PCP Physician Assistant; Visit Provider Physician Assistant
DX: I25.10 Atherosclerotic heart disease of native coronary artery without angina pectoris (principal); Z72.0 Tobacco use; E78.2 Mixed hyperlipidemia; E66.01 Morbid (severe) obesity due to excess calories; Z68.41 Body mass index [BMI] 40.0-44.9, adult; I10 Essential (primary) hypertension
CPT/HCPCS: 36415; 80048; 80061; 80076; 83735; 84439; 84443; 85025